=== PATIENT | male | born 1950 | race Caucasian/White ===

== ENCOUNTER 2016-11-30 11:40 | Inpatient (IN) | payer OTHER ==
[~2016-11-30] VITALS: Ht 172.7 cm; Wt 68.5 kg
[2016-11-30] MEDS ORDERED: ONDANSETRON 4 MG INJ IV STA (13:40)
[2016-11-30] MEDS ORDERED: metroNIDAZOLE 500 MG/NS (PMX) 100 ML IVPB STA (13:40)
[2016-11-30] MEDS ORDERED: HYDROmorphONE 1 MG/ML SYG IV STA (13:40)
[2016-11-30] MEDS ORDERED: PIPER-TAZO 3.375 GM IV (PMX) 100 ML IVPB STA (13:40)
[2016-11-30] MEDS ORDERED: SOD CHLORIDE 0.9% 1,000 ML IV STA (13:40)
[2016-11-30] MEDS ORDERED: DUTA0.5C PO ×2 (13:51→17:57)
[2016-11-30] MEDS ORDERED: OMEP20CA16 PO (13:51)
[2016-11-30] MEDS ORDERED: TAMS-14 PO (13:51)
--- NOTE | 2016-11-30 14:02 | ERA ---
ER Documentation Chief Complaint Date/Time DATE: 11/30/16 TIME: 13:03 Chief Complaint ABD PAIN WITH NAUSEA HPI 66-year-old male presents to the emergency department on referral from his GI doctor. Patient was just recently diagnosed with diverticulitis and microscopic perforation. He completed a course of IV antibiotics including Cipro and Flagyl. He followed up today with his ring facer with a planned colonoscopy. However, upon presenting to the GI doctor, he began complaining that he began having severe abdominal pain after starting the prep last night. Examination in the GI doctor's office indicated possible peritoneal signs and he was referred here to the emergency department. Upon arrival, patient is complaining of a diffuse, nonspecific abdominal pain that he rates as an 8/10. He denies fevers chills. He has had nausea but no vomiting. He denies any melena or hematemesis. ROS All systems reviewed and are negative except as per history of present illness. Medications Home Meds Reported Medications Omeprazole* (Omeprazole*) 20 Mg Capsule.dr, 20 MG PO DAILY, #30 CAP 11/30/16 Dutasteride* (Avodart*) 0.5 Mg Capsule, 0.5 MG PO DAILY, CAP 11/30/16 Tamsulosin Hcl* (Flomax*) 0.4 Mg Cap.er.24h, 0.4 MG PO DAILY, CAP 11/30/16 Allergies Allergies: Coded Allergies: No Known Allergy (Unverified , 11/30/16) FmHx Noncontributory for chief complaint Physical Exam Vitals Vital Signs Date Time Temp Pulse Resp B/P Pulse Ox O2 Delivery O2 Flow Rate FiO2 11/30/16 11:44 98.1 74 16 161/78 98 Physical Exam GENERAL: The patient is well developed and appropriate for usual state of health in no apparent distress HEENT: Pupils equal, round, and reactive to light. EOMI. There is no scleral icterus. NECK: C-spine is soft and supple, there is no meningismus. There is no cervical lymphadenopathy. LUNGS: Clear to auscultation bilaterally. There are no rales, wheezes or rhonchi. HEART: Regular rate and rhythm, no murmurs, clicks, rubs or gallops. ABDOMEN: Soft, nondistended. Hypoactive bowel sounds. Patient is diffuse tenderness throughout the abdomen with no rebound or guarding. EXTREMITIES: There is no peripheral cyanosis or edema. No focal swelling or erythema. NEURO: The patient moves all four extremities with 5/5 strength. Cranial nerves II - XII are intact. Normal gait. Alert and oriented SKIN: There is no apparent rash or petechiae. HEME/LYMPHATIC: There is no evidence of excessive bruising or lymphedema. PSYCHIATRIC: The patient does not appear anxious or depressed. Result Diagram: 11/30/16 1355 11/30/16 1355 Results 24 hrs Laboratory Tests Test 11/30/16 13:55 Activated Partial Thromboplast Time 31.6Sec Alanine Aminotransferase (ALT/SGPT) Pending Albumin 4.3g/dl Albumin/Globulin Ratio Pending Alkaline Phosphatase Pending Anion Gap Pending Aspartate Amino Transf (AST/SGOT) Pending Basophils # 0.110^3/ul Basophils % 0.6% Blood Morphology Comment Blood Urea Nitrogen Pending Calcium Level Pending Carbon Dioxide Level Pending Chloride Level 103mmol/L Creatinine Pending Direct Bilirubin Pending Eosinophils # 0.110^3/ul Eosinophils % 0.7% Globulin Pending Glucose Level Pending Hematocrit 41.3% Hemoglobin 13.1g/dl INR International Normalized Ratio 0.98 Indirect Bilirubin Pending Lipase Pending Lymphocytes # 2.110^3/ul Lymphocytes % 20.4% Mean Corpuscular Hemoglobin 21.9pg Mean Corpuscular Hemoglobin Concent 31.8g/dl Mean Corpuscular Volume 68.9fl Mean Platelet Volume 8.6fl Monocytes # 0.710^3/ul Monocytes % 7.2% Neutrophils # 7.210^3/ul Neutrophils % 71.1% Nucleated Red Blood Cells # 0.010^3/ul Nucleated Red Blood Cells % 0.0/100WBC Platelet Count 26346^3/UL Potassium Level 4.1mmol/L Prothrombin Time 13.0Sec Prothrombin Time Ratio 1.0 Red Blood Count 6.0010^6/ul Red Cell Distribution Width 16.8% Sodium Level 144mmol/L Total Bilirubin Pending Total Protein Pending White Blood Count 10.210^3/ul Current Medications Medications (Trade) Dose Ordered Sig/Himanshu Route PRN Reason Start Time Stop Time Status Last Admin Dose Admin Sodium Chloride (NS) 1,000 ml @ 1,000 mls/hr Q1H STAT IV 11/30/16 13:40 11/30/16 14:39 11/30/16 14:12 Hydromorphone HCl (Dilaudid) 1 mg ONCE STAT IV 11/30/16 13:40 11/30/16 13:41 DC 11/30/16 14:11 Ondansetron HCl 4 mg 4 mg ONCE STAT IV 11/30/16 13:40 11/30/16 13:41 DC 11/30/16 14:11 Metronidazole 100 ml @ 100 mls/hr ONCE STAT IVPB 11/30/16 13:40 11/30/16 14:39 11/30/16 14:11 Piperacillin Sod/ Tazobactam Sod (Zosyn 3.375gm/ 100 ml (Pmx)) 100 ml @ 200 mls/hr ONCE STAT IVPB 11/30/16 13:40 11/30/16 14:09 DC 11/30/16 14:11 Procedures/MDM Patient was taken to a room, seen and evaluated. Comfort measures were initiated. Diagnostic tests were ordered and reviewed. 3 LEAD RHYTHM STRIP: [Normal sinus rhythm without ectopy] 12 lead EKG interpreted by myself: Rate/rhythm: [Normal sinus rhythm] [place]/intervals: [Normal] Ischemia: [Nonspecific ST and T-wave changes with no ST elevation] Impression:[Nonspecific EKG] RADIOLOGY: Chest x-ray reviewed. CT scan of the abdomen and pelvis with IV contrast pending CONSULTATION: Dr. Dhaliwal was notified for admission. Dr. Posey was notified in surgical consultation. Dr. Horton was notified in GI consultation. MEDICAL DECISION MAKIN-year-old male presents the emergency department with abdominal pain in the setting of a outpatient treated diverticulitis with perforation. Given his history and his clinical examination at this time, I am concerned that he may be peritoneal from a worsening perforation of the diverticuli. Patient will undergo diagnostic workup including lab tests and CT imaging for further diagnostic accuracy. As per my conversations with his primary care doctor, he will be admitted to the hospital for IV fluids, pain control and monitoring with likely suggestive GI and surgical consultation. Departure Diagnosis: Primary Impression: Abdominal pain MASON PULIDOSON Nov 30, 2016 14:02
[2016-11-30 14:06] LABS: BASOPHIL # 0.1 10^3/ul (0.0-0.1); BASOPHILS % 0.6 % (0.0-2.0); EOSINOPHILS # 0.1 10^3/ul (0.0-0.5); EOSINOPHILS % 0.7 % (0.0-7.0); HEMATOCRIT 41.3 % (42.0-52.0); HEMOGLOBIN 13.1 g/dl (14.0-18.0); LYMPHOCYTES # 2.1 10^3/ul (0.8-2.9); LYMPHOCYTES % 20.4 % (15.0-51.0); MEAN CORPUSCULAR HEMOGLOBIN 21.9 pg (29.0-33.0); MEAN CORPUSCULAR HGB CONC 31.8 g/dl (32.0-37.0); MEAN CORPUSCULAR VOLUME 68.9 fl (82.0-101.0); MEAN PLATELET VOLUME 8.6 fl (7.4-10.4); MONOCYTE # 0.7 10^3/ul (0.3-0.9); MONOCYTES % 7.2 % (0.0-11.0); NEUTROPHIL # 7.2 10^3/ul (1.6-7.5); NEUTROPHILS % 71.1 % (39.0-77.0); PLATELET COUNT 263 10^3/UL (140-440); RED CELL DISTRIBUTION WIDTH 16.8 % (11.5-14.5); UNCORRECTED WBC 10.2 10^3/ul (4.8-10.8); WHITE BLOOD COUNT 10.2 10^3/ul (4.8-10.8)
[2016-11-30 14:11] LABS: INR 0.98
[2016-11-30 14:12] LABS: PARTIAL THROMBOPLASTIN TIME 31.6 Sec (25.0-35.0)
--- NOTE | 2016-11-30 14:14 | RADRPT ---
PROCEDURE: Chest Radiograph. CLINICAL INDICATION: Preop TECHNIQUE: Single frontal chest radiograph. COMPARISON: None available FINDINGS: The heart is magnified. The cardiomediastinal silhouette is within normal limits. No infiltrate o r effusion is seen. The bones are intact. IMPRESSION: 1. No evidence of acute cardiopulmonary disease. RPTAT: AA .Paul Scherer MD, MD Date Time Electronically viewed and signed by .Paul Scherer MD, on 11/30/2016 14:14 .B/
[2016-11-30 14:15] LABS: ALBUMIN 4.3 g/dl (3.3-4.9); POTASSIUM 4.1 mmol/L (3.5-5.1)
[2016-11-30 14:16] LABS: CONDITION 1; LH ANALYZER COMMENTS 1
[2016-11-30 14:17] LABS: BILIRUBIN,INDIRECT 0.5 mg/dl (0-1.1); BILIRUBIN,TOTAL 0.5 mg/dl (0.2-1.3); CREATININE 0.72 mg/dl (0.61-1.24)
[2016-11-30 14:18] LABS: ALBUMIN/GLOBULIN RATIO 1.34; CALCIUM 9.8 mg/dl (8.4-10.2); TOTAL PROTEIN 7.5 g/dl (6.1-8.1)
[2016-11-30 14:23] LABS: ADD UMIC YES; URINE BILIRUBIN (Dip) NEGATIVE (NEGATIVE); URINE BLOOD (Dip) TRACE (NEGATIVE); URINE COLOR YELLOW (YELLOW); URINE GLUCOSE (Dip) NEGATIVE (NEGATIVE); URINE KETONES (Dip) NEGATIVE (NEGATIVE); URINE LEUKOCYTE ESTERASE (Dip) NEGATIVE (NEGATIVE); URINE NITRITE (Dip) NEGATIVE (NEGATIVE); URINE TOTAL PROTEIN (Dip) TRACE (NEGATIVE); URINE UROBILINOGEN (Dip) 0.2 E.U./dL (0.1-1.0)
[2016-11-30] MEDS ORDERED: IOHEXOL 300MG/ML 150 ML BTL ONE (14:52)
[2016-11-30] MEDS ORDERED: SOD CHLORIDE 0.9% 100 ML ONE (14:52)
[2016-11-30 14:54] LABS: BACTERIA,URINE FEW; MUCUS,URINE MODERATE; URINE RBCS 0-2 /HPF (0)
--- NOTE | 2016-11-30 16:07 | RADRPT ---
PROCEDURE: CT Abdomen with and pelvis contrast. CLINICAL INDICATION: Abdominal Pain TECHNIQUE: CT scan of the abdomen and pelvis with contrast was performed on a multidetector high-r esolution CT scan. The patient was scanned following the uncomplicated intravenous administration 1 00 cc of Omnipaque 300. Coronal and sagittal reformatted images were obtained from the axial source images. Images were reviewed on a high-resolution PACS workstation. The total exam CTDI 9.43 mGy an d the total exam DLP 556.43 mGy-cm. One or more of the following dose reduction techniques were util ized: Automated exposure control, adjustment of the mA and/or kV according to patient size, use of iterative reconstruction technique. COMPARISON: None. FINDINGS: CT abdomen: The lung bases demonstrate bibasilar linear scarring and dependent atelectasis but are otherwise rik ar. The heart size is normal, without pericardial thickening or effusion. Atherosclerotic coronary artery calcifications. The liver is normal in size and density without focal mass or intrahepatic bi liary dilatation. The spleen is normal in size and homogeneous in density. The stomach is partiall y collapsed, but is grossly unremarkable. The pancreas as visualized is normal. The gallbladder and biliary tree are unremarkable and there is no evidence for biliary dilatation. The adrenal glands are symmetric and normal. Nonobstructing 2-3 mm mid pole and 3 nonobstructing low er pole right nephrolithiasis largest measuring 6 x 3 mm in size. Punctate midpole left nonobstruct ing calculus. 2.4 x 2 cm exophytic right lower pole and simple renal cortical cyst with adjacent 10 mm exophytic r ight renal cortical cyst with focal cortical scarring. 1.5 ml by 1.3 cm simple left lower lobe simp le cortical cyst. No obstructive uropathy. Prominent retroperitoneal lymph nodes. The aortocaval region below the renal arteries measuring less than 1 cm in short axis dimension likely reactive in nature. The aorta is of normal caliber. Aortic vascular calcifications are present. There is no retroperit radford lymphadenopathy. The evangelista hepatis region is clear. The bowel and mesentery, as visualized, are equally unremarkable. CT pelvis: Borderline prominent appendix without surrounding inflammatory change. No evidence of appendicolith . Circumferential mural thickening with extensive diverticulosis and surrounding pericolonic fat stran ding with trace fluid involving the distal descending colon and proximal sigmoid colon compatible wi th acute diverticulitis.. There is no large fluid collection to suggest abscess, however, there is a small 10 x 14 mm fluid co llection which may be within a diverticulum along the lateral wall of sigmoid colon most compatible with the contain a microperforation. No evidence of free air. Bilateral fat containing inguinal herniae. The surrounding osseous structures are remarkable for degenerative spondylosis of the spine. No ost eolytic or osteoblastic lesion is detected. IMPRESSION: 1. Acute distal descending and sigmoid diverticulitis with 10 x 14 mm lateral wall fluid collection compatible with a contained microperforation. No other evidence of free air, abscess, or bowel obst ruction. 2. Bilateral nonobstructive nephrolithiasis and simple renal cortical cysts. RPTAT:AAJJ Physician Asuncion Date Time Electronically viewed and signed by Physician Asuncion on 11/30/2016 16:07 DYLAN/
[2016-11-30 16:30] VITALS: BP 155/85; PULSE 68; RESP 16
[2016-11-30] MEDS ORDERED: ONDANSETRON 4 MG INJ IV PRN (17:00)
[2016-11-30] MEDS ORDERED: ACETAMINOPHEN 650 MG SUPP PR PRN (17:00)
[2016-11-30] MEDS ORDERED: NACL 0.9% 3 ML SYG IV SCH (17:00)
[2016-11-30] MEDS: SOD CHLORIDE 0.9% 1,000 ML IV SCH (17:03)
[2016-11-30] MEDS: HYDROmorphONE 1 MG/ML SYG IV PRN ×2 (17:04→21:30)
[2016-11-30 17:26] VITALS: Ht 172.7 cm; Wt 68.5 kg
--- NOTE | 2016-11-30 17:35 | HP ---
DATE OF ADMISSION: 11/30/2016 REASON FOR ADMISSION: Acute diverticulitis, recurrent, with possible microperforation. HISTORY OF PRESENT ILLNESS: The patient is a 66-year-old male with history of BPH, hypert ension, dyslipidemia, recently diagnosed with diverticulitis back in October, treated conservativel y with oral medications. He was planned to undergo colonoscopy today by Dr. Samayoa, but the patie nt had the special prep prior to procedure and while undergoing the prep, he was drinking the GoLYT TAN. He has been experiencing severe excruciating abdominal pain. It was decided to defer procedur e and admit him to the hospital for acute diverticulitis. In the ER, he was evaluated extensively. Chest x-ray revealed no evidence of acute cardiopulmonary disease. CT scan of abdomen and pelvis w as performed which showed acute distal descending and sigmoid diverticulitis with 10 x 14 mm lateral wall fluid collection compatible with contained microperforation, no other evidence of free air, ab scess or bowel obstruction. There is bilateral nonobstructive nephrolithiasis ____ cysts. The pinky ent received in the ER IV fluids, antibiotics with Zosyn and Flagyl and he was admitted to the [facility]/surgical floor. I asked the ER physician to call Dr. Jimi Posey, the ophthalmic surgical assistant. The patient is admitted. Otherwise he denies any chest pain, shortness of breath. Denies any fever or chills. Does report abdominal pain, severe in nature, for the past day. The patient denies any bleeding. Denies any weakness or numbness. Patient is admitted for further care. PAST MEDICAL HISTORY: BPH, hypertension, dyslipidemia, nephrolithiasis, nicotine dependence. ALLERGIES: NO KNOWN DRUG ALLERGIES. SOCIAL HISTORY: The patient smokes 1 cigarette a day. In the past, he smoked half a pack a day for most of his life. Alcohol socially. IV drug abuse, denies. SURGICAL HISTORY: Includes kidney stone resection, likely lithotripsy. FAMILY HISTORY: Mother alive, unknown medical problems. Father from a CVA in 1966. Patient i s x2. 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 REVIEW OF SYSTEMS: Per HPI. The patient recently was treated also for H. pylori and underwent a CA T scan on 11/06/2016 which did show basically the same findings as described by the patient's . PHYSICAL EXAMINATION: VITAL SIGNS: Temperature 98.1, pulse 74, respirations 16, blood pressure is elevated 161/78, satura tion is 98% on room air. GENERAL: No acute distress. HEENT: Normocephalic, atraumatic. The patient is pale. CARDIOVASCULAR: Positive S1 and S2, positive systolic ejection murmur heard throughout. LUNGS: Clear. ABDOMEN: Soft, positive midepigastric pain. Positive left upper quadrant pain. Positive left mid abdominal pain. Positive left lower quadrant pain. Positive mid abdominal pain and lower abdominal pain. EXTREMITIES: No clubbing, cyanosis, or edema. LABORATORY DATA: White count is 10.2, hemoglobin 13.1, hematocrit 41, MCV is low at 69 suggestive o f leukocytic anemia, platelet count of 263, neutrophils 71%, lymphocytes 20%. Chemistry: Sodium is 144, potassium 4.1, chloride 103, bicarbonate 28, BUN is 19, creatinine 0.72, glucose of 88. LFTs are all normal. Lipase is 30. UA essentially negative. DIAGNOSTIC IMAGING: Chest x-ray shows ____ evidence of acute cardiopulmonary disease. CT scan of t he abdomen and pelvis as above. EKG showed normal sinus rhythm, possible left atrial enlargement, l eft axis deviation, septal infarct, age undetermined at 62 beats a minute. ASSESSMENT AND PLAN: 1. This is a very unfortunate 66-year-old male with history of hypertension, BPH, dyslipidemia, alberta otine dependency, who presents with recurrent episodes of diverticulitis, failed outpatient manageme nt. 2. Acute diverticulitis with evidence of microperforation. The patient will be placed on IV antibi otics with Zosyn. Pain control will be provided. Will consult both GI and ophthalmic surgical assistant for further recommendation. May consider interventional radiology and drainage versus surgical interven tion versus supportive care with current antibiotics. Monitor symptoms. 3. I will send stool for C. diff, stool for blood and stool for culture. The patient will be hydra elsa with IV fluids and kept comfortable. 4. Anemia. The patient with microcytic anemia. Check iron panel, B12, folic acid, reticulocyte co unt and send stool for occult blood and check CEA level. 5. Benign prostatic hypertrophy. Resume patient's Flomax pending urine output. 6. Hypertension. Observe. May need to restart patient's medications. Patient says he does not ta ke medication regularly. 7. Dyslipidemia. Check lipid panel. 8. The patient will be placed on Protonix for GI prophylaxis and Lovenox for DVT prophylaxis. We w ill follow closely. Case discussed with family at bedside. They are aware of the patient's plan of care and condition. We will follow. Dictated By: OMAR MATUTE/CROW Conf#: [id number] DID#: [id number]
[2016-11-30] MEDS: PIPER-TAZO 3.375 GM IV (PMX) 100 ML IVPB SCH (18:13)
--- NOTE | 2016-11-30 20:17 | CONS ---
DATE OF ADMISSION: 11/30/2016 DATE OF CONSULTATION: Dear Dr. Jane: Thank you for asking me to evaluate the patient who is a 66-year-old male with history of hypertensi on, BPH, dyslipidemia, had an attack of diverticulitis in October. He was successfully treated wit h oral antibiotic. However, the patient was given mag citrate prep in preparation for colonoscopy b y Dr. Max and this prep, as per the patient, produced excruciating pain. Because of the pain, his procedure was canceled and he was sent to the ER and had a CAT scan done which showed diverticul itis with microperforation and abscess. There was no free air. Abscess size was 1 to 1.9 cm. The patient denies of any chest pain, no fever, no chills, no GI bleeding. PAST MEDICAL HISTORY: BPH, hypertension, dyslipidemia, nephrolithiasis and nicotine dependency. ALLERGIES: NO KNOWN DRUGS. SOCIAL HISTORY: He smokes 1 cigarette a day. Socially drinks. No IV drug abuse. FAMILY HISTORY: Mother is alive. Father from CVA. REVIEW OF SYSTEMS: Otherwise negative. PHYSICAL EXAMINATION VITAL SIGNS: Stable. HEENT: Unremarkable. NECK: Supple, no thyromegaly, no lymphadenopathy. CARDIOVASCULAR: No murmur, gallop or click. LUNGS: Clear. ABDOMEN: Soft. Tenderness in the left lower quadrant. Bowel sounds good. No mass abdomen. EXTREMITIES: No edema. CENTRAL NERVOUS SYSTEM: Grossly within normal limits. IMAGING DATA: CAT scan of the abdomen and pelvis showed diverticulitis in the left side of the colo n with microperforation and abscess formation. IMPRESSION: 1. Acute diverticulitis with microperforation and small abscess formation. 2. Hypertension. 3. Benign prostatic hypertrophy. 4. Dyslipidemia. 5. History of nicotine addiction. PLAN: At this point, is to continue antibiotic, IV Cipro and Flagyl. Surgical consult, probably dr chance of abscess. Will monitor WBC count closely, p.r.n. pain management. Dictated By: IRWIN COE MD PJ/NTS Conf#: [id number] DID#: [id number] CC: OMAR JANE MD;*EndCC*
[2016-11-30 20:32] VITALS: BP 169/80; RESP 19
[2016-12-01] MEDS: PIPER-TAZO 3.375 GM IV (PMX) 100 ML IVPB SCH ×5 (00:11→23:18)
[2016-12-01] MEDS: SOD CHLORIDE 0.9% 1,000 ML IV SCH ×3 (05:25→17:07)
[2016-12-01] MEDS: PANTOPRAZOLE 40 MG INJ IV SCH (05:26)
[2016-12-01] MEDS: HYDROmorphONE 1 MG/ML SYG IV PRN ×4 (05:38→23:18)
[2016-12-01 06:07] LABS: BASOPHILS % 0.2 % (0.0-2.0); EOSINOPHILS # 0.1 10^3/ul (0.0-0.5); EOSINOPHILS % 1.5 % (0.0-7.0); HEMATOCRIT 36.3 % (42.0-52.0); HEMOGLOBIN 11.5 g/dl (14.0-18.0); LYMPHOCYTES # 1.5 10^3/ul (0.8-2.9); LYMPHOCYTES % 20.9 % (15.0-51.0); MEAN CORPUSCULAR HEMOGLOBIN 22.3 pg (29.0-33.0); MEAN CORPUSCULAR HGB CONC 31.6 g/dl (32.0-37.0); MEAN CORPUSCULAR VOLUME 70.5 fl (82.0-101.0); MEAN PLATELET VOLUME 8.6 fl (7.4-10.4); MONOCYTE # 0.6 10^3/ul (0.3-0.9); NEUTROPHIL # 5.1 10^3/ul (1.6-7.5); NEUTROPHILS % 69.4 % (39.0-77.0); PLATELET COUNT 238 10^3/UL (140-440); RED BLOOD COUNT 5.15 10^6/ul (4.70-6.10); UNCORRECTED WBC 7.4 10^3/ul (4.8-10.8); WHITE BLOOD COUNT 7.4 10^3/ul (4.8-10.8)
[2016-12-01 06:11] LABS: ALBUMIN 3.3 g/dl (3.3-4.9)
[2016-12-01 06:12] LABS: POTASSIUM 3.9 mmol/L (3.5-5.1)
[2016-12-01 06:14] LABS: ALBUMIN/GLOBULIN RATIO 1.1; BILIRUBIN,INDIRECT 0.6 mg/dl (0-1.1); BILIRUBIN,TOTAL 0.6 mg/dl (0.2-1.3); CREATININE 0.77 mg/dl (0.61-1.24); TOTAL PROTEIN 6.3 g/dl (6.1-8.1)
[2016-12-01 06:15] LABS: CALCIUM 8.5 mg/dl (8.4-10.2); MAGNESIUM 1.8 mg/dl (1.7-2.5); PHOSPHORUS 3.8 mg/dl (2.5-4.9)
[2016-12-01 06:16] LABS: IRON 75 ug/dl (35-150)
[2016-12-01 06:25] LABS: TOTAL IRON BINDING CAPACITY 287 ug/dl (241-421)
[2016-12-01 06:28] LABS: CONDITION 1; LH ANALYZER COMMENTS 1
[2016-12-01 06:46] LABS: THYROID STIMULATING HORMONE 0.666 MIU/L (0.465-4.680)
[2016-12-01 07:22] LABS: FOLATE 15.4 ng/ml (2.8-20.0)
[2016-12-01 07:28] LABS: RETICULOCYTE COUNT % 1.2 % (0.5-1.5)
[2016-12-01 08:00] VITALS: BP 156/73; RESP 18
[2016-12-01 08:19] LABS: CARCINOEMBRYONIC ANTIGEN 1.9 ng/ml (0.0-5.0)
[2016-12-01] MEDS: ENOXAPARIN 40 MG/0.4 ML SYG SC SCH (10:10)
--- NOTE | 2016-12-01 11:56 | CONS ---
DATE OF ADMISSION: 11/30/2016 DATE OF CONSULTATION: 11/30/2016 TYPE OF CONSULTATION: Surgical. REFERRING PHYSICIAN: Samson Dhaliwal MD CHIEF COMPLAINT: 1. Abdominal pain. 2. Diverticulitis with microperforation, recent, possible recurrent. 3. Anemia. 4. Hypertension. 5. Nicotine dependency. HISTORY OF PRESENT ILLNESS: Mr. Bela Baldwin is a 66-year-old male with multiple comorbidities who back at the end of October was diagnosed with microperforated diverticulitis on an outpatient CT sc an and was treated by oral antibiotics and was planning to have a followup for colonoscopy by Dr. Thien leavitt. After he had his GoLYTELY prep, he started having worsening pain in the lower abdomen, rosemary cially in the left side. He denies any nausea, vomiting. Denies any fevers or chills. Denies any chest pain or shortness of breath. Denies any visual or neurologic changes. Denies cough, seizure, dysuria, bloating, trauma or sick contacts. After he was seen by the GI doctor prior to the colono scopy, he was referred back to the hospital and colonoscopy was canceled. The patient has had blood work, which are within normal and a CT scan is obtained. An official read is pending, but CT image s preliminary identify diverticulitis with probable microperforation. Surgical consult is obtained for further evaluation and treatment. PAST MEDICAL HISTORY: 1. Benign prostatic hypertrophy. 2. Hypertension. 3. Dyslipidemia. 4. Nephrolithiasis. 5. Nicotine dependence. 6. Diverticulosis with acute diverticulitis and microperforation. 7. History of H. pylori. PAST SURGICAL HISTORY: Cystoscopy and ureteroscopy and stone extraction. MEDICATIONS: As per medical record. ALLERGIES: NONE. SOCIAL HISTORY: Smokes half a pack per day for many years. Alcohol, socially. Denies recreational drug use. . 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 FAMILY HISTORY: Father from CVA at 67. Mother alive. Previous H. pylori treatment. REVIEW OF SYSTEMS: A 12-point review of system negative unless addressed in HPI. PHYSICAL EXAMINATION: VITAL SIGNS: Temperature is 98.1, pulse 74, blood pressure 161/78, respirations 16, satting 98% on room air. GENERAL: No acute distress, comfortable, pleasant. HEENT: Pupils equal, reactive. No scleral icterus. Mucous membranes are moist. Extraocular muscl es are intact. NECK: No crepitus. No JVD. Trachea midline. HEART: S1, S2 present and regular. PULMONARY: Normal respiratory effort. No wheezing. ABDOMEN: Soft, tender in the lower abdomen, left more than right. No rebound or guarding, not rig id. Negative Martinez's. Not distended. EXTREMITIES: No edema. VASCULAR: Capillary refill is less than 2 seconds. NEUROLOGIC: Alert, oriented, moves all 4 extremities grossly. SKIN: No rashes. No jaundice. LABORATORY DATA: WBC is 10, H and H 13/41, platelets 263. Chemistries within normal. LFTs are nor mal. Lipase is 30. UA is negative. RADIOGRAPHIC: CT report pending, but my official read as above. ASSESSMENT AND PLAN: Mr. Bela Baldwin is a 66-year-old male with multiple comorbidities: 1. Abdominal pain, probably secondary to acute on subacute diverticulitis with contained microperfo ration. Based on the findings, I recommend patient to be admitted on IV antibiotics. I had a long discussion with patient and in terms of plan. My recommendation is to continue antibiotics and heal this acute/subacute infection and then bring him back for an elective resection to prevent fut ure perforations. They both fully understand and are in agreement with the plan. In the meantime, we will also keep n.p.o. and on IV fluids. 2. Anemia, microcytic. Workup per primary team including iron panel and vitamins including B12 and folic acid. The patient will eventually need a colonoscopy prior to any surgical intervention to i nvestigate the colon for any other pathologies. 3. Hypertension. Continue her nutrition and medication optimization. 4. Benign prostatic hypertrophy history. Continue medication/Flomax. 5. Dyslipidemia. Continue nutrition optimization. 6. History of nephrolithiasis. The patient is encouraged to optimize his hydration. Thank you very much for consulting me in this patient's care. Dictated By: BELA HERNANDEZ/CROW Conf#: [id number] DID#: [id number]
--- NOTE | 2016-12-01 12:01 | PN ---
Date/Time of Note Date/Time of Note DATE: 12/01/16 TIME: 11:53 Assessment/Plan Lines/Catheters IV Catheter Type (from [facility]): Peripheral IV Assessment/Plan Chief Complaint/Hosp Course 1. Acute/subacute microperforated sigmoid diverticulitis. CT without drainable collection. -IV antibiotics -IV fluids -NPO till bowel function -After long discussion with patient and family, decision is to treat with antibiotics and bring back patient for elective laparoscopic sigmoid colectomy in a few months after outpatient colonoscopy 2. Microcytic anemia -Check B12 & folate -Monitor -Will need outpatient upper and lower scope prior to surgical intervention 3. Hypertension -Nutrition and medication control 4. BPH -Flomax 5. Dyslipidemia -Nutrition and possible medication control 6. Nephrolithiasis and renal cysts -Encourage adequate fluid consumption -Outpatient renal follow-up 7. Retroperitoneal and periaortic lymphadenopathy probably secondary to inflammatory changes above. However need to rule out malignancy. -After acute infection episodes has been treated, patient will benefit from outpatient colonoscopy 8. Bilateral inguinal hernias, asymptomatic -Eventual surgical repair, as needed Thank you, Problems: Subjective 24 Hr Interval Summary No fevers or chills. No chest pain or shortness of breath. No visual or neurologic changes. No nausea or vomiting. Abdominal pain persists. No dysuria. No joint swelling. No rashes. Min flatus. No bm. No drainable collection on CT. Exam/Review of Systems Vital Signs Vitals Vital Signs Date Time Temp Pulse Resp B/P Pulse Ox O2 Delivery O2 Flow Rate FiO2 12/01/16 08:00 98.4 70 18 156/73 92 11/30/16 16:30 Room Air Intake and Output 11/30/16 11/30/16 12/01/16 15:00 23:00 07:00 Intake Total 100 ml 1000 ml Output Total 300 ml Balance 100 ml 700 ml Exam Constitutional: alert, oriented, No distress Psych: nl mood/affect, No anxiety, No confusion Head: atraumatic, normocephalic Eyes: EOMI, PERRL, nl conjunctiva, No icteric ENMT: mucosa pink and moist, nl external ears & nose Neck: non-tender, No jvd Respiratory: normal air movement, No congested cough, No labored breathing Cardiovascular: regular rate and rhythm, No edema Gastrointestinal: soft, tender (lower abdomen. Less than yesterday), No distended, No rebound or guarding Musculoskeletal: nl extremities to inspection, nl gait and stance, No joint tenderness Extremities: normal pulses, No calf tenderness, No cyanosis, No edema Neurological: nl mental status, nl speech, nl strength Skin: nl turgor, No diaphoresis, No rash or lesions Lymph: nl lymph nodes Results Free Text/Dictation CT: The lung bases demonstrate bibasilar linear scarring and dependent atelectasis but are otherwise clear. The heart size is normal, without pericardial thickening or effusion. Atherosclerotic coronary artery calcifications. The liver is normal in size and density without focal mass or intrahepatic biliary dilatation. The spleen is normal in size and homogeneous in density. The stomach is partially collapsed, but is grossly unremarkable. The pancreas as visualized is normal. The gallbladder and biliary tree are unremarkable and there is no evidence for biliary dilatation. The adrenal glands are symmetric and normal. Nonobstructing 2-3 mm mid pole and 3 nonobstructing lower pole right nephrolithiasis largest measuring 6 x 3 mm in size. Punctate midpole left nonobstructing calculus. 2.4 x 2 cm exophytic right lower pole and simple renal cortical cyst with adjacent 10 mm exophytic right renal cortical cyst with focal cortical scarring. 1.5 ml by 1.3 cm simple left lower lobe simple cortical cyst. No obstructive uropathy. Prominent retroperitoneal lymph nodes. The aortocaval region below the renal arteries measuring less than 1 cm in short axis dimension likely reactive in nature. The aorta is of normal caliber. Aortic vascular calcifications are present. There is no retroperitoneal lymphadenopathy. The evangelista hepatis region is clear. The bowel and mesentery, as visualized, are equally unremarkable. CT pelvis: Borderline prominent appendix without surrounding inflammatory change. No evidence of appendicolith. Circumferential mural thickening with extensive diverticulosis and surrounding pericolonic fat stranding with trace fluid involving the distal descending colon and proximal sigmoid colon compatible with acute diverticulitis.. There is no large fluid collection to suggest abscess, however, there is a small 10 x 14 mm fluid collection which may be within a diverticulum along the lateral wall of sigmoid colon most compatible with the contain a microperforation. No evidence of free air. Bilateral fat containing inguinal herniae. The surrounding osseous structures are remarkable for degenerative spondylosis of the spine. No osteolytic or osteoblastic lesion is detected. IMPRESSION: 1. Acute distal descending and sigmoid diverticulitis with 10 x 14 mm lateral wall fluid collection compatible with a contained microperforation. No other evidence of free air, abscess, or bowel obstruction. 2. Bilateral nonobstructive nephrolithiasis and simple renal cortical cysts. Result Diagram: 12/01/16 0500 12/01/16 0500 BELA SHINE MD Dec 01, 2016 12:01
--- NOTE | 2016-12-01 18:30 | CONS ---
Date/Time of Note Date/Time of Note DATE: 12/01/16 TIME: 18:28 Assessment/Plan Assessment/Plan Additional Assessment/Plan IMPRESSION: 1. Acute diverticulitis with microperforation and small abscess formation. 2. Hypertension. 3. Benign prostatic hypertrophy. 4. Dyslipidemia. 5. History of nicotine addiction. Plan continue antibiotics NPO discussed with Consultation Date/Type/Reason Admit Date/Time Nov 30, 2016 at 14:18 Initial Consult Date 24 HR Interval Summary Free Text/Dictation abdominal pain hungry Exam/Review of Systems Vital Signs Vitals Vital Signs Date Time Temp Pulse Resp B/P Pulse Ox O2 Delivery O2 Flow Rate FiO2 12/01/16 08:00 98.4 70 18 156/73 92 11/30/16 16:30 Room Air Intake and Output 11/30/16 11/30/16 12/01/16 15:00 23:00 07:00 Intake Total 100 ml 1000 ml Output Total 300 ml Balance 100 ml 700 ml Exam Constitutional: alert, oriented, well developed Psych: nl mood/affect, no complaints Head: atraumatic, normocephalic Eyes: EOMI, PERRL, nl conjunctiva, nl lids, nl sclera ENMT: nl external ears & nose, nl lips & teeth, nl nasal mucosa & septum Neck: non-tender, supple Respiratory: clear to auscultation, normal air movement Cardiovascular: nl pulses, regular rate and rhythm Gastrointestinal: nl liver, spleen, non-tender, soft Musculoskeletal: nl extremities to inspection, nl gait and stance Extremities: normal pulses Neurological: BRANCH LEAD II-XII intact, nl mental status, nl speech, nl strength Skin: nl turgor, No rash or lesions Lymph: nl lymph nodes Results Result Diagram: 12/01/16 0500 12/01/16 0500 Results 24 hrs Laboratory Tests Test 12/01/16 05:00 Absolute Reticulocyte Count 0.061 Alanine Aminotransferase (ALT/SGPT) 31 Albumin 3.3 # Albumin/Globulin Ratio 1.10 Alkaline Phosphatase 78 Anion Gap 17 H Aspartate Amino Transf (AST/SGOT) 28 Basophils # 0.0 Basophils % 0.2 Blood Morphology Comment Blood Urea Nitrogen 15 Calcium Level 8.5 Carbon Dioxide Level 23 Carcinoembryonic Antigen 1.9 Chloride Level 106 Cholesterol Level 193 Cholesterol/HDL Ratio 6.0 Creatinine 0.77 Direct Bilirubin 0.00 Eosinophils # 0.1 Eosinophils % 1.5 Folate 15.4 Globulin 3.00 Glucose Level 61 #L HDL Cholesterol 32 Hematocrit 36.3 L Hemoglobin 11.5 L Hemoglobin A1c 5.6 Indirect Bilirubin 0.6 Iron Level 75 LDL Cholesterol, Calculated 136 Lymphocytes # 1.5 Lymphocytes % 20.9 Magnesium Level 1.8 Mean Corpuscular Hemoglobin 22.3 L Mean Corpuscular Hemoglobin Concent 31.6 L Mean Corpuscular Volume 70.5 L Mean Platelet Volume 8.6 Monocytes # 0.6 Monocytes % 8.0 Neutrophils # 5.1 Neutrophils % 69.4 Nucleated Red Blood Cells # 0.0 Nucleated Red Blood Cells % 0.0 Percent Iron Saturation 26 Percent Reticulocyte Count 1.2 Phosphorus Level 3.8 Platelet Count 238 Potassium Level 3.9 Red Blood Count 5.15 Red Cell Distribution Width 17.0 H Sodium Level 142 Thyroid Stimulating Hormone (TSH) 0.666 Total Bilirubin 0.6 Total Iron Binding Capacity 287 Total Protein 6.3 # Triglycerides Level 126 Vitamin B12 Level 404 White Blood Count 7.4 # Medications Medications Current Medications Sodium Chloride (NS) 1,000 ml @ 90 mls/hr [id number] IV Last administered on 17:07; Admin Dose 90 MLS/HR; Start 11/30/16 at 16:42 Ondansetron HCl (Zofran Inj) 4 mg Q6H PRN IV NAUSEA AND/OR VOMITING; Start at 17:00 Acetaminophen (Tylenol Supp) 650 mg Q6H PRN [place] PAIN LEVEL 1-3 OR FEVER; Start 11/30/16 at 17:00 Hydromorphone HCl (Dilaudid) 0.5 mg Q4H PRN IV SEVERE PAIN LEVEL 7-10 Last administered on 12/01/16 17:15; Admin Dose 0.5 MG; Start 11/30/16 at 17:00 Pantoprazole (Protonix Iv) 40 mg DAILY@06 IV Last administered on 12/01/16 05: 26; Admin Dose 40 MG; Start 12/01/16 at 06:00 Enoxaparin Sodium 40 mg 40 mg DAILY SC Last administered on 12/01/16 10:10; Admin Dose 40 MG; Start 12/01/16 at 09:00 Piperacillin Sod/ Tazobactam Sod (Zosyn 3.375gm/ 100 ml (Pmx)) 100 ml @ 200 mls /hr Q6 IVPB Last administered on 12/01/16t 17:07; Admin Dose 200 MLS/HR; Start 11/30/16 at 18:00 IRWIN COE MD Dec 01, 2016 18:30
[2016-12-01 19:25] VITALS: BP 168/83; RESP 16
--- NOTE | 2016-12-01 19:51 | PN ---
DATE: 12/01/2016 SUBJECTIVE: Case discussed in detail with Dr. Horton and Dr. Jimi Posey regarding plan of care. Plan for now is to continue the patient's IV antibiotics, bowel rest, and to continue IV fluids a nd, then at a later time, likely to proceed with outpatient colonoscopy and then a laparoscopic sigm oid colectomy in a few months. Family had many questions that I answered them in my best ability. They were concerned that the colonoscopy prep has caused the diverticulitis exacerbation. PHYSICAL EXAMINATION: VITAL SIGNS: Temperature 98.4, pulse 70, respirations 18, blood pressure 156/72, saturation 92% to 97% on room air. GENERAL: No acute distress. HEENT: Normocephalic, atraumatic. CARDIOVASCULAR: S1, S2, regular rate. LUNGS: Clear. ABDOMEN: Soft. Positive tender to palpation in the left mid abdomen, left lower quadrant, and mid abdomen area. LABORATORY DATA: White count is 7.4, hemoglobin 11.5, hematocrit 36, platelets 238 with normal diff erential. Chemistry: Sodium is 142, potassium 3.9, chloride 106, bicarbonate 23, BUN 16, creatinin e 0.77, glucose 61. Hemoglobin A1c 5.6. Iron 75, TIBC 287, percent saturation 26%. AST 28, ALT 31 , alkaline phosphatase 78. Albumin 3.3. Cholesterol 193, LDL 136, HDL 32. Lipase 30. CEA is 1.9. Vitamin B12 is 404. Folic acid 15.4. TSH is 0.6. Blood cultures were negative. ASSESSMENT AND PLAN: This is a 66-year-old male with history of hypertension, benign prostatic hype rtrophy, dyslipidemia, nicotine dependency who presented with recurrent episode of diverticulitis, f carlos outpatient management. He has been treated now for over a month, per family. 1. Acute diverticulitis. Continue IV antibiotics with Zosyn. I appreciate GI and surgical input. Diet to be advanced per team. Per discussion with Dr. Posey, no need for IR drainage, as the are a is close to the abdominal wall and it is not big. 2. Anemia. Likely hemodiluted. Observe. Anemia workup currently unremarkable. CEA is normal at 1.9. 3. Hypertension. Observe. May restart patient's meds if okay with surgical team. 4. Continue gastrointestinal prophylaxis and deep venous thrombosis prophylaxis. 5. Continue pain control. We will follow. Dictated By: OMAR MATUTE/CROW Conf#: [id number] DID#: [id number]
[2016-12-01 22:26] VITALS: BP 192/93
[2016-12-01] MEDS: hydrALAzine 20 MG INJ IV PRN (22:26)
[2016-12-01 23:30] VITALS: BP 166/80
[2016-12-02] VITALS (9 sets, daily range): BP systolic 148–202; BP diastolic 67–91; PULSE 71–91; RESP 16–18
[2016-12-02] MEDS: SOD CHLORIDE 0.9% 1,000 ML IV SCH ×2 (02:03→04:40)
[2016-12-02] MEDS: HYDROmorphONE 1 MG/ML SYG IV PRN ×5 (04:46→21:41)
[2016-12-02] MEDS: PIPER-TAZO 3.375 GM IV (PMX) 100 ML IVPB SCH ×3 (05:52→18:04)
[2016-12-02] MEDS: PANTOPRAZOLE 40 MG INJ IV SCH (05:53)
[2016-12-02] MEDS: hydrALAzine 20 MG INJ IV PRN (08:26)
[2016-12-02] MEDS ORDERED: GLUCOSE GEL 15 GRAM TUBE ONE (08:44)
[2016-12-02] MEDS ORDERED: hydrALAzine 20 MG INJ IV ONE (09:00)
[2016-12-02] MEDS: DEXTROSE 5%-0.45% NACL 1,000 ML IV SCH ×2 (09:04→21:42)
[2016-12-02] MEDS ORDERED: GLUCOSE GEL 15 GRAM TUBE PO SCH ×3 (09:30)
[2016-12-02] MEDS ORDERED: GLUCOSE GEL 24 GRAMS PO SCH (09:30)
[2016-12-02] MEDS: ENOXAPARIN 40 MG/0.4 ML SYG SC SCH (09:40)
[2016-12-02] MEDS ORDERED: HYDROmorphONE 1 MG/ML SYG IV PRN (12:00)
[2016-12-02 12:14] LABS: ALBUMIN 3.5 g/dl (3.3-4.9)
[2016-12-02 12:15] LABS: POTASSIUM 3.6 mmol/L (3.5-5.1)
[2016-12-02 12:16] LABS: BASOPHILS % 0.2 % (0.0-2.0); EOSINOPHILS % 0.3 % (0.0-7.0); HEMATOCRIT 37.6 % (42.0-52.0); LYMPHOCYTES # 0.9 10^3/ul (0.8-2.9); LYMPHOCYTES % 9.2 % (15.0-51.0); MEAN CORPUSCULAR HEMOGLOBIN 22.2 pg (29.0-33.0); MEAN CORPUSCULAR HGB CONC 31.8 g/dl (32.0-37.0); MEAN CORPUSCULAR VOLUME 69.7 fl (82.0-101.0); MEAN PLATELET VOLUME 8.5 fl (7.4-10.4); MONOCYTE # 0.6 10^3/ul (0.3-0.9); MONOCYTES % 5.9 % (0.0-11.0); NEUTROPHIL # 8.3 10^3/ul (1.6-7.5); NEUTROPHILS % 84.4 % (39.0-77.0); PLATELET COUNT 255 10^3/UL (140-440); RED BLOOD COUNT 5.39 10^6/ul (4.70-6.10); RED CELL DISTRIBUTION WIDTH 16.9 % (11.5-14.5); UNCORRECTED WBC 9.8 10^3/ul (4.8-10.8); WHITE BLOOD COUNT 9.8 10^3/ul (4.8-10.8)
[2016-12-02 12:17] LABS: BILIRUBIN,INDIRECT 0.4 mg/dl (0-1.1); BILIRUBIN,TOTAL 0.4 mg/dl (0.2-1.3); CREATININE 0.63 mg/dl (0.61-1.24)
[2016-12-02 12:18] LABS: ALBUMIN/GLOBULIN RATIO 1.12; CALCIUM 8.7 mg/dl (8.4-10.2); TOTAL PROTEIN 6.6 g/dl (6.1-8.1)
[2016-12-02 12:19] LABS: CONDITION 1; LH ANALYZER COMMENTS 1
[2016-12-02 12:28] LABS: TROPONIN-I 0.027 ng/ml (0.00-0.12)
[2016-12-02] MEDS ORDERED: NITROGLYCERIN 0.1 MG/HR PATCH TRANSDERM SCH (13:30)
--- NOTE | 2016-12-02 14:02 | RADRPT ---
Vent Rate: 78 bpm RR Interval: 0 msec OK Interval: 178 msec QRS Duration: 90 msec QT Interval: 430 msec QTC Interval: 490 msec P-R-T [place]: 47 - -11 - 44 degrees Normal sinus rhythm Prolonged QT Abnormal ECG Electronically Signed By: Tj Elena [id number]
[2016-12-02] MEDS: METOPROLOL 25 MG TAB PO SCH ×2 (14:14→20:37)
[2016-12-02] MEDS: NITROGLYCERIN 0.1 MG/HR PATCH TRANSDERM SCH (14:15)
--- NOTE | 2016-12-02 16:39 | PN ---
DATE: 12/02/2016 SUBJECTIVE: Patient is seen earlier today. He had hypertensive urgency and chest discomfort coming from the abdomen to the chest. He felt like tearing through his chest. I gave him an extra dose of Dilaudid. EKG and troponin were ordered. He also received hydralazine IV, overall with go od results. The patient is feeling okay now. I asked cardiology to see the patient in consultation . PHYSICAL EXAMINATION: VITAL SIGNS: Temperature 98.2, pulse 91, respiration is 18, blood pressure 156/71. GENERAL: The patient is in no acute distress, saturation was 98% on room air. HEENT: Normocephalic, atraumatic. CARDIOVASCULAR: S1 and S2, regular rate and rhythm. LUNGS: Clear. ABDOMEN: wax coating machine tender to palpation in the left lower quadrant and mid abdomen. EXTREMITIES: No clubbing, cyanosis, or edema. LABORATORY DATA: Today, white count 9.8, hemoglobin 12, hematocrit 38, platelet count 255, neutroph ils 85%, lymphocytes 9%. Chemistry: Sodium is 139, potassium 3.6, chloride 104, bicarbonate 21, BU N is 12, creatinine 0.63, glucose of 110. Lactic acid is 0.8. LFTs are normal. Stool occult blood was negative. UA was negative on admission. INR 0.98. MEDICATIONS: Include the followin. Dilaudid 1 mg IV q.3h. p.r.n. 2. D5 half normal at 80 mL an hour. The patient did have episodes of hypoglycemia as well today, s o I switched his fluids. 3. Hydralazine 5 mg IV q.4h. p.r.n. for systolic greater than 170. 4. Lovenox 40 mg subcutaneous daily. 5. Protonix 40 IV daily. 6. Zosyn 3.375 IV q.6h. 7. Zofran p.r.n. 8. Tylenol p.r.n. ASSESSMENT AND PLAN: This is a 66-year-old male with history of hypertension, benign prostatic hyp ertrophy, dyslipidemia, nicotine dependency who presented with recurrent episode of diverticulitis, failed outpatient management. 2. Acute diverticulitis remains on Zosyn, IV fluid hydration and pain medications. Follow up surge ry and GI recommendations. In the meantime, the plan for conservative management at a later time. The patient to undergo colonoscopy and partial colon resection surgery. 3. Anemia, stable. 4. Hypertension. We will start the patient on oral pills with beta blockers. Obtain serial tropon ins. This patient had episodes of somewhat concerning chest pain. Currently, doing well. The pinky ent remains on Lovenox for DVT prophylaxis. Continue hydralazine p.r.n. as well for systolic blood pressure greater than 170. 5. Benign prostatic hypertrophy, start the patient on Flomax. 6. Episodes of hypoglycemia. Patient now on D5 half normal saline. Follow up all stool studies. Overall currently remains stable. Case discussed with family. Dictated By: OMAR MATUTE/CROW Conf#: [id number] DID#: [id number]
[2016-12-02] MEDS: TAMSULOSIN (SR) 0.4 MG CAP PO SCH (20:37)
--- NOTE | 2016-12-02 20:59 | PN ---
Date/Time of Note Date/Time of Note DATE: 12/02/16 TIME: 20:56 Assessment/Plan Lines/Catheters IV Catheter Type (from [facility]): Peripheral IV Assessment/Plan Chief Complaint/Hosp Course 1. Acute/subacute microperforated sigmoid diverticulitis. CT without drainable collection. -IV antibiotics -IV fluids -NPO till bowel function -Recommend antibiotics with conservative tx if continues to work and then bring back patient for elective laparoscopic sigmoid colectomy in a few months after outpatient colonoscopy 2. Microcytic anemia -Check B12 & folate -Monitor -Will need outpatient upper and lower scope prior to surgical intervention 3. Hypertension -Nutrition and medication control 4. BPH -Flomax 5. Dyslipidemia -Nutrition and possible medication control 6. Nephrolithiasis and renal cysts -Encourage adequate fluid consumption -Outpatient renal follow-up 7. Retroperitoneal and periaortic lymphadenopathy probably secondary to inflammatory changes above. However need to rule out malignancy. -After acute infection episodes has been treated, patient will benefit from outpatient colonoscopy 8. Bilateral inguinal hernias, asymptomatic -Eventual surgical repair, as needed 9. Chest pain, ? etiology -w/u per cardiology and primary Thank you, Problems: Subjective 24 Hr Interval Summary No fevers or chills. Tearing chest pain this morning but thus far cardiac w/u negative. No shortness of breath. No visual or neurologic changes. No nausea or vomiting. Abdominal pain persists. No dysuria. No joint swelling. No rashes. Min flatus. No bm. Exam/Review of Systems Vital Signs Vitals Vital Signs Date Time Temp Pulse Resp B/P Pulse Ox O2 Delivery O2 Flow Rate FiO2 12/02/16 20:41 98.8 81 16 164/78 95 12/02/16 08:15 Room Air Intake and Output 12/01/16 12/01/16 12/02/16 15:00 23:00 07:00 Intake Total 100 ml 1000 ml 1255 ml Output Total 725 ml 850 ml Balance 100 ml 275 ml 405 ml Exam Free Text/Dictation Constitutional: alert, oriented, No distress Psych: nl mood/affect, No anxiety, No confusion Head: atraumatic, normocephalic Eyes: EOMI, PERRL, nl conjunctiva, No icteric ENMT: mucosa pink and moist, nl external ears & nose Neck: non-tender, No jvd Respiratory: normal air movement, No congested cough, No labored breathing Cardiovascular: regular rate and rhythm, No edema Gastrointestinal: soft, tender (lower abdomen. Less than yesterday), No distended, No rebound or guarding Musculoskeletal: nl extremities to inspection, nl gait and stance, No joint tenderness Extremities: normal pulses, No calf tenderness, No cyanosis, No edema Neurological: nl mental status, nl speech, nl strength Skin: nl turgor, No diaphoresis, No rash or lesions Lymph: nl lymph nodes Results Result Diagram: 12/02/16 1145 12/02/16 1145 BELA SHINE MD Dec 02, 2016 20:59
--- NOTE | 2016-12-02 21:57 | CONS ---
Date/Time of Note Date/Time of Note DATE: 12/02/16 TIME: 21:55 Assessment/Plan Assessment/Plan Additional Assessment/Plan IMPRESSION: 1. Acute diverticulitis with microperforation and small abscess formation. 2. Hypertension. 3. Benign prostatic hypertrophy. 4. Dyslipidemia. 5. History of nicotine addiction. 6.chest pain Plan continue antibiotics pain management Consultation Date/Type/Reason Admit Date/Time Nov 30, 2016 at 14:18 24 HR Interval Summary Free Text/Dictation abdominal pain better Exam/Review of Systems Vital Signs Vitals Vital Signs Date Time Temp Pulse Resp B/P Pulse Ox O2 Delivery O2 Flow Rate FiO2 12/02/16 20:41 98.8 81 16 164/78 95 12/02/16 08:15 Room Air Intake and Output 12/01/16 12/01/16 12/02/16 15:00 23:00 07:00 Intake Total 100 ml 1000 ml 1255 ml Output Total 725 ml 850 ml Balance 100 ml 275 ml 405 ml Exam Constitutional: alert, oriented, well developed Psych: nl mood/affect, no complaints Head: atraumatic, normocephalic Eyes: EOMI, PERRL, nl conjunctiva, nl lids, nl sclera ENMT: nl external ears & nose, nl lips & teeth, nl nasal mucosa & septum Neck: non-tender, supple Respiratory: clear to auscultation, normal air movement Cardiovascular: nl pulses, regular rate and rhythm Gastrointestinal: nl liver, spleen, non-tender, soft Musculoskeletal: nl extremities to inspection, nl gait and stance Extremities: normal pulses Neurological: RELOCATION COORDINATOR II-XII intact, nl mental status, nl speech, nl strength Skin: nl turgor, No rash or lesions Lymph: nl lymph nodes Results Result Diagram: 12/02/16 1145 12/02/16 1145 Results 24 hrs Laboratory Tests Test 12/02/16 00:54 12/02/16 08:37 12/02/16 08:38 12/02/16 09:11 Stool Occult Blood NEGATIVE Bedside Glucose 59 L 62 L 62 L Test 12/02/16 09:32 12/02/16 10:40 12/02/16 11:45 12/02/16 16:30 Bedside Glucose 81 103 Alanine Aminotransferase (ALT/SGPT) 29 Albumin 3.5 Albumin/Globulin Ratio 1.12 Alkaline Phosphatase 70 Anion Gap 18 H Aspartate Amino Transf (AST/SGOT) 30 Basophils # 0.0 Basophils % 0.2 Blood Morphology Comment Blood Urea Nitrogen 12 Calcium Level 8.7 Carbon Dioxide Level 21 Chloride Level 104 Creatinine 0.63 Direct Bilirubin 0.00 Eosinophils # 0.0 Eosinophils % 0.3 Globulin 3.10 Glucose Level 110 # Hematocrit 37.6 L Hemoglobin 12.0 L Indirect Bilirubin 0.4 Lactic Acid Level 0.8 Lymphocytes # 0.9 Lymphocytes % 9.2 L Mean Corpuscular Hemoglobin 22.2 L Mean Corpuscular Hemoglobin Concent 31.8 L Mean Corpuscular Volume 69.7 L Mean Platelet Volume 8.5 Monocytes # 0.6 Monocytes % 5.9 Neutrophils # 8.3 H Neutrophils % 84.4 H Nucleated Red Blood Cells # 0.0 Nucleated Red Blood Cells % 0.0 Platelet Count 255 Potassium Level 3.6 Red Blood Count 5.39 Red Cell Distribution Width 16.9 H Sodium Level 139 Total Bilirubin 0.4 Total Protein 6.6 Troponin I 0.027 0.064 White Blood Count 9.8 # Medications Medications Current Medications Ondansetron HCl (Zofran Inj) 4 mg Q6H PRN IV NAUSEA AND/OR VOMITING; Start at 17:00 Acetaminophen (Tylenol Supp) 650 mg Q6H PRN [place] PAIN LEVEL 1-3 OR FEVER; Start 11/30/16 at 17:00 Pantoprazole (Protonix Iv) 40 mg DAILY@06 IV Last administered on 12/02/16 05: 53; Admin Dose 40 MG; Start 12/01/16 at 06:00 Enoxaparin Sodium 40 mg 40 mg DAILY SC Last administered on 12/02/16 09:40; Admin Dose 40 MG; Start 12/01/16 at 09:00 Piperacillin Sod/ Tazobactam Sod (Zosyn 3.375gm/ 100 ml (Pmx)) 100 ml @ 200 mls /hr Q6 IVPB Last administered on 12/02/16 18:04; Admin Dose 200 MLS/HR; Start 11/30/16 at 18:00 Hydralazine HCl 5 mg 5 mg Q4H PRN IV ELEVATED BLOOD PRESSURE Last administered on 12/02/16 08:26; Admin Dose 5 MG; Start 12/01/16 at 22:00 Dextrose/Sodium Chloride (D5-1/2ns) 1,000 ml @ 80 mls/hr [id number] IV Last administered on 12/02/16 21:42; Admin Dose 80 MLS/HR; Start 12/02/16 at 09:00 Hydromorphone HCl (Dilaudid) 1 mg Q3 PRN IV PAIN Last administered on 21:41; Admin Dose 1 MG; Start 12/02/16 at 10:00 Metoprolol Tartrate (Lopressor) 25 mg BID PO Last administered on 12/02/16 20: 37; Admin Dose 25 MG; Start 12/02/16 at 13:30 Tamsulosin HCl (Flomax) 0.4 mg HS PO Last administered on 12/02/16 20:37; Admin Dose 0.4 MG; Start 12/02/16 at 21:00 Nitroglycerin (Nitroglycerin 0.1 Mg/Hr) 1 patch DAILY TRANSDERM Last administered on 12/02/16 14:15; Admin Dose 1 PATCH; Start 12/02/16 at 14:30 IRWIN COE MD Dec 02, 2016 21:56
[2016-12-03] MEDS: PIPER-TAZO 3.375 GM IV (PMX) 100 ML IVPB SCH ×5 (00:12→23:16)
[2016-12-03] MEDS: hydrALAzine 20 MG INJ IV PRN ×2 (03:27→15:20)
[2016-12-03] MEDS: HYDROmorphONE 1 MG/ML SYG IV PRN ×3 (03:51→20:45)
[2016-12-03] MEDS: PANTOPRAZOLE 40 MG INJ IV SCH (05:13)
[2016-12-03 06:17] LABS: MAGNESIUM 1.8 mg/dl (1.7-2.5)
[2016-12-03 06:20] LABS: POTASSIUM 3.3 mmol/L (3.5-5.1)
[2016-12-03 06:23] LABS: CREATININE 0.67 mg/dl (0.61-1.24)
[2016-12-03 06:24] LABS: CALCIUM 8.7 mg/dl (8.4-10.2)
[2016-12-03 06:26] LABS: EOSINOPHILS # 0.1 10^3/ul (0.0-0.5); EOSINOPHILS % 0.8 % (0.0-7.0); HEMOGLOBIN 10.8 g/dl (14.0-18.0); LYMPHOCYTES # 0.9 10^3/ul (0.8-2.9); LYMPHOCYTES % 12.5 % (15.0-51.0); MEAN CORPUSCULAR HEMOGLOBIN 22.3 pg (29.0-33.0); MEAN CORPUSCULAR HGB CONC 31.8 g/dl (32.0-37.0); MEAN CORPUSCULAR VOLUME 70.2 fl (82.0-101.0); MEAN PLATELET VOLUME 8.9 fl (7.4-10.4); MONOCYTE # 0.7 10^3/ul (0.3-0.9); MONOCYTES % 9.6 % (0.0-11.0); NEUTROPHIL # 5.6 10^3/ul (1.6-7.5); NEUTROPHILS % 77.1 % (39.0-77.0); PLATELET COUNT 229 10^3/UL (140-440); RED BLOOD COUNT 4.84 10^6/ul (4.70-6.10); RED CELL DISTRIBUTION WIDTH 16.2 % (11.5-14.5); TROPONIN-I 0.033 ng/ml (0.00-0.12); UNCORRECTED WBC 7.3 10^3/ul (4.8-10.8); WHITE BLOOD COUNT 7.3 10^3/ul (4.8-10.8)
[2016-12-03 06:50] LABS: CONDITION 1; LH ANALYZER COMMENTS 1
[2016-12-03] MEDS ORDERED: MAGNESIUM SULFATE 2 GM/50 ML 50 ML IVPB ONE (08:00)
[2016-12-03 08:22] VITALS: BP 143/75; RESP 20
[2016-12-03] MEDS ORDERED: POTASSIUM CHLORIDE 30 MEQ in SOD CHLORIDE 0.9% 150 ML IVPB ONE (09:00)
[2016-12-03] MEDS: METOPROLOL 50 MG TAB PO SCH ×2 (09:03→20:45)
[2016-12-03] MEDS: NITROGLYCERIN 0.1 MG/HR PATCH TRANSDERM SCH (09:03)
[2016-12-03] MEDS: DEXTROSE 5%-0.45% NACL 1,000 ML IV SCH ×2 (09:04→23:16)
[2016-12-03] MEDS: ENOXAPARIN 40 MG/0.4 ML SYG SC SCH (09:04)
--- NOTE | 2016-12-03 09:33 | CONS ---
DATE OF ADMISSION: 11/30/2016 DATE OF CONSULTATION: 12/03/2016 CARDIOLOGY CONSULTATION REFERRING PHYSICIAN: Samson Jane MD REASON FOR CONSULTATION: Chest pain. CHIEF COMPLAINT: Abdominal pain. HISTORY OF PRESENT ILLNESS: Thank you for this referral. History obtained from the patient, jah barillas with his , review of the chart. This is a 66-year-old gentleman who was admitted 3 days ag o with acute diverticulitis. The patient apparently has had diverticulitis, has been on antibiotic as an outpatient, has been doing well. Previously was to undergo outpatient colonoscopy, but appare ntly after the GoLYTELY was given he had severe abdominal pain and decided to admit him for treatmen t. While here, slowly his abdominal pain got better; however, last night he had episode of chest pa in, severe, anteriorly all over his body. It lasted about 5 to 10 minutes and resolved. According to the patient and his , his blood pressure was severely elevated at the time up to 202. His wi fe also stated that he also gets "anxious" as well. The pain has resolved and this morning he also had reports of sweating and chills and throat discomfort, abdominal discomfort, all at the same time which has resolved. Again, according to the family, the blood pressure has been elevated. Current ly, denies any chest pain or pressure. Said that he normally walks quite a bit and exercises with n o chest pain or pressure. PAST MEDICAL HISTORY: History of hypertension, dyslipidemia, nephrolithiasis, smoking. ALLERGIES: NO KNOWN DRUG ALLERGIES. SOCIAL HISTORY: The patient is smoking minimally now, has smoked more in the past. Drinks socially . Denies any drug abuse. FAMILY HISTORY: Patient's younger brother with coronary bypass graft. MEDICATIONS: As per medical reconciliation; however, he said he does not take any of his blood pres sure medication, only takes them as needed, and he has not needed them much outpatient. He has also been on antibiotics as an outpatient reportedly as well. REVIEW OF SYSTEMS: Otherwise negative except for above-mentioned. PHYSICAL EXAMINATION: VITAL SIGNS: Temperature 98.4, heart rate of 81, blood pressure 164/78, respiratory rate of 16, sat urating 95%. HEENT: Normocephalic, atraumatic. Pupils are equal. CARDIOVASCULAR: Regular rate and rhythm. PULMONARY: With no wheezes, no rales. GASTROINTESTINAL: Nontender, positive tenderness to palpation mostly on the left side. EXTREMITIES: No extremity edema. NEUROLOGIC: Awake, alert x3, nonfocal. PSYCHIATRIC: Appears to be calm and pleasant. LABORATORY DATA: WBC of 7.3, hemoglobin 10.8, platelets of 229, sodium 139, potassium 3.3, BUN of 9 , creatinine 0.67, glucose of 104, magnesium is 1.8. Troponin has been negative x3. EKG shows norm al sinus rhythm. Poor R-wave progression. ASSESSMENT AND PLAN: 1. Chest pain syndrome, rule acute coronary syndrome. 2. Diverticulitis. 3. Abdominal mass secondary to above. 4. Hypertension. 5. Dyslipidemia. RECOMMENDATIONS: The patient has been started on metoprolol. We will increase the dose to control the blood pressure better for now. Cardiac enzymes have been negative. The patient's pain appeared to be most likely related to his abdominal discomfort. For now, we will get an echocardiogram on h im, increase the beta jose, nitrite was started as well. Once the patient's GI status improves, will consider outpatient stress testing for him as well. Thank you for this referral. We will continue to follow along with you. Dictated By: NADIA BAKER MD AV/CROW Conf#: [id number] DID#: [id number] CC: SAMSON JANE MD;*End*
--- NOTE | 2016-12-03 15:36 | CONS ---
Date/Time of Note Date/Time of Note DATE: 12/03/16 TIME: 15:35 Assessment/Plan Assessment/Plan Additional Assessment/Plan Additional Assessment/Plan IMPRESSION: 1. Acute diverticulitis with microperforation and small abscess formation. 2. Hypertension. 3. Benign prostatic hypertrophy. 4. Dyslipidemia. 5. History of nicotine addiction. 6.chest pain Plan continue antibiotics pain management clear liquid diet repeat ct scan Consultation Date/Type/Reason Admit Date/Time Nov 30, 2016 at 14:18 24 HR Interval Summary Constitutional: improved Exam/Review of Systems Vital Signs Vitals Vital Signs Date Time Temp Pulse Resp B/P Pulse Ox O2 Delivery O2 Flow Rate FiO2 12/03/16 08:22 98.8 89 20 143/75 96 12/02/16 08:15 Room Air Intake and Output 12/02/16 12/02/16 12/03/16 15:00 23:00 07:00 Intake Total 280 ml 1060 ml 300 ml Output Total 900 ml 750 ml Balance 280 ml 160 ml -450 ml Exam Constitutional: alert, oriented, well developed Psych: nl mood/affect, no complaints Head: atraumatic, normocephalic Eyes: EOMI, PERRL, nl conjunctiva, nl lids, nl sclera ENMT: nl external ears & nose, nl lips & teeth, nl nasal mucosa & septum Neck: non-tender, supple Respiratory: clear to auscultation, normal air movement Cardiovascular: nl pulses, regular rate and rhythm Gastrointestinal: nl liver, spleen, non-tender, soft Musculoskeletal: nl extremities to inspection, nl gait and stance Extremities: normal pulses Neurological: OPERATING ENGINEER II-XII intact, nl mental status, nl speech, nl strength Skin: nl turgor, No rash or lesions Lymph: nl lymph nodes Results Result Diagram: 12/03/16 0510 12/03/16 0510 Results 24 hrs Laboratory Tests Test 12/02/16 16:30 12/03/16 05:10 Troponin I 0.064 0.033 Anion Gap 14 Basophils # 0.0 Basophils % 0.0 Blood Morphology Comment Blood Urea Nitrogen 9 Calcium Level 8.7 Carbon Dioxide Level 24 Chloride Level 104 Creatinine 0.67 Eosinophils # 0.1 Eosinophils % 0.8 Glucose Level 104 Hematocrit 34.0 L Hemoglobin 10.8 L Lymphocytes # 0.9 Lymphocytes % 12.5 L Magnesium Level 1.8 Mean Corpuscular Hemoglobin 22.3 L Mean Corpuscular Hemoglobin Concent 31.8 L Mean Corpuscular Volume 70.2 L Mean Platelet Volume 8.9 Monocytes # 0.7 Monocytes % 9.6 Neutrophils # 5.6 Neutrophils % 77.1 H Nucleated Red Blood Cells # 0.0 Nucleated Red Blood Cells % 0.0 Phosphorus Level 2.0 L Platelet Count 229 Potassium Level 3.3 L Red Blood Count 4.84 Red Cell Distribution Width 16.2 H Sodium Level 139 White Blood Count 7.3 # Medications Medications Current Medications Ondansetron HCl (Zofran Inj) 4 mg Q6H PRN IV NAUSEA AND/OR VOMITING; Start at 17:00 Acetaminophen (Tylenol Supp) 650 mg Q6H PRN [place] PAIN LEVEL 1-3 OR FEVER Last administered on 12/03/16 05:12; Admin Dose 650 MG; Start 11/30/16 at 17:00 Pantoprazole (Protonix Iv) 40 mg DAILY@06 IV Last administered on 12/03/16 05: 13; Admin Dose 40 MG; Start 12/01/16 at 06:00 Enoxaparin Sodium 40 mg 40 mg DAILY SC Last administered on 12/03/16 09:04; Admin Dose 40 MG; Start 12/01/16 at 09:00 Piperacillin Sod/ Tazobactam Sod (Zosyn 3.375gm/ 100 ml (Pmx)) 100 ml @ 200 mls /hr Q6 IVPB Last administered on 12/03/16 12:00; Admin Dose 200 MLS/HR; Start 11/30/16 at 18:00 Hydralazine HCl 5 mg 5 mg Q4H PRN IV ELEVATED BLOOD PRESSURE Last administered on 12/03/16 15:20; Admin Dose 5 MG; Start 12/01/16 at 22:00 Dextrose/Sodium Chloride (D5-1/2ns) 1,000 ml @ 80 mls/hr [id number] IV Last administered on 12/03/16 09:04; Admin Dose 80 MLS/HR; Start 12/02/16 at 09:00 Hydromorphone HCl (Dilaudid) 1 mg Q3 PRN IV PAIN Last administered on 15:12; Admin Dose 1 MG; Start 12/02/16 at 10:00 Tamsulosin HCl (Flomax) 0.4 mg HS PO Last administered on 12/02/16 20:37; Admin Dose 0.4 MG; Start 12/02/16 at 21:00 Nitroglycerin (Nitroglycerin 0.1 Mg/Hr) 1 patch DAILY TRANSDERM Last administered on 12/03/16 09:03; Admin Dose 1 PATCH; Start 12/02/16 at 14:30 Metoprolol Tartrate (Lopressor) 50 mg BID PO Last administered on 12/03/16 09: 03; Admin Dose 50 MG; Start 12/03/16 at 09:00 IRWIN COE MD Dec 03, 2016 15:36
[2016-12-03 16:31] VITALS: BP 159/77; PULSE 71; RESP 16
--- NOTE | 2016-12-03 17:45 | PN ---
DATE: SUBJECTIVE: The patient was seen early this morning. He wanted to eat. We decided to advance his diet to clear liquid diet as I was informed that the patient's abdominal pain is better. The patien t also was seen by the filter helper. Echocardiogram was ordered. Currently he denies any chest last n. OBJECTIVE: VITAL SIGNS: Temperature 98.8, pulse 71, respirations 16, blood pressure 159/77, saturation 96% on room air. GENERAL: The patient is in no acute distress. HEENT: Normocephalic, atraumatic. CARDIOVASCULAR: S1, S2, regular rate and rhythm. LUNGS: Clear. ABDOMEN: Soft. Positive tender to palpation in the left lower quadrant. EXTREMITIES: No clubbing, cyanosis, or edema. LABORATORY DATA: White count is 7.3, hemoglobin 10.8, hematocrit 34, platelets 229, neutrophils 77% , lymphocytes 13%. Chemistry: Sodium 139, potassium 3.3, low, chloride 104, bicarbonate 24, BUN is 9, creatinine 0.67, glucose of 104, phosphorus 2.0, magnesium 1.8. Troponin is negative. Stool fo r C. diff is negative. Blood culture is negative. CT scan of the abdomen and pelvis on 11/30/2016 was reviewed. MEDICATIONS: 1. Lopressor 50 mg b.i.d. 2. Flomax 0.4 at bedtime. 3. Nitroglycerin patch daily. 4. Dilaudid p.r.n. 5. D5 half normal saline at 80 mL an hour. 6. Hydralazine p.r.n. 7. Lovenox 40 mg subcutaneous daily. 8. Protonix 40 IV daily. 9. Zosyn 3.375 IV q. 6. 10. Zofran p.r.n. 11. Tylenol p.r.n. ASSESSMENT AND PLAN: 1. This is a 66-year-old male with history of hypertension, benign prostatic hypertrophy, dyslipide tyra, and nicotine dependency who presented with recurrent episode of diverticulitis, failed outpatie nt management. 2. Acute diverticulitis. Remains on Zosyn. Still has vague pain in the left lower quadrant. Diet was advanced to clear liquid diet. Further management per surgery and GI. May consider repeat CT scan. Plan is otherwise to continue antibiotics and at a later time proceed with colonoscopy and th en colon resection surgery at the site of the diverticulitis. 3. Anemia, stable. 4. Hypertension and episodic chest pain. Serial troponins are negative. We will follow up 2D echo report. Continue beta blockers, Lovenox for DVT prophylaxis. Continue nitroglycerin. 5. Likely chest pain was related to his GI pathology. 6. Benign prostatic hypertrophy. Continue Flomax. 7. Episodic hypoglycemia yesterday on D5 half normal saline. We will discontinue soon as the patie nt's diet was advanced. Again, we will monitor patient's pain closely. Dictated By: OMAR MATUTE/CROW Conf#: [id number] DID#: [id number]
[2016-12-03] MEDS: TAMSULOSIN (SR) 0.4 MG CAP PO SCH (20:26)
[2016-12-03 20:45] VITALS: BP_SYST 157; BP_SYST 185; BP_DIAS 81; BP_DIAS 90; PULSE 78; RESP 21
[2016-12-03 21:53] VITALS: BP 150/71; PULSE 66
[2016-12-03] MEDS: ZOLPIDEM 5 MG TAB PO PRN (23:13)
--- NOTE | 2016-12-03 23:23 | PN ---
Date/Time of Note Date/Time of Note DATE: 12/03/16 TIME: 23:21 Assessment/Plan Lines/Catheters IV Catheter Type (from [facility]): Peripheral IV Colon in Place (from [facility]): No Assessment/Plan Chief Complaint/Hosp Course 1. Acute/subacute microperforated sigmoid diverticulitis. CT without drainable collection. -IV antibiotics -IV fluids -Clears -Recommend antibiotics with conservative tx if continues to work and then bring back patient for elective laparoscopic sigmoid colectomy in a few months after outpatient colonoscopy 2. Microcytic anemia -Check B12 & folate -Monitor -Will need outpatient upper and lower scope prior to surgical intervention 3. Hypertension -Nutrition and medication control 4. BPH -Flomax 5. Dyslipidemia -Nutrition and possible medication control 6. Nephrolithiasis and renal cysts -Encourage adequate fluid consumption -Outpatient renal follow-up 7. Retroperitoneal and periaortic lymphadenopathy probably secondary to inflammatory changes above. However need to rule out malignancy. -After acute infection episodes has been treated, patient will benefit from outpatient colonoscopy 8. Bilateral inguinal hernias, asymptomatic -Eventual surgical repair, as needed 9. Chest pain, ? etiology. Improved. -w/u per cardiology and primary Thank you, Problems: Subjective 24 Hr Interval Summary Flatus and liquid bm. No fevers or chills. No cp. No shortness of breath. No visual or neurologic changes. No nausea or vomiting. Abdominal pain persists but improving. No dysuria. No joint swelling. No rashes. Exam/Review of Systems Vital Signs Vitals Vital Signs Date Time Temp Pulse Resp B/P Pulse Ox O2 Delivery O2 Flow Rate FiO2 12/03/16 21:53 66 150/71 12/03/16 20:45 98.4 21 97 12/03/16 16:31 Room Air Intake and Output 12/02/16 12/02/16 12/03/16 15:00 23:00 07:00 Intake Total 280 ml 1060 ml 300 ml Output Total 900 ml 750 ml Balance 280 ml 160 ml -450 ml Exam Free Text/Dictation Constitutional: alert, oriented, No distress Psych: nl mood/affect, No anxiety, No confusion Head: atraumatic, normocephalic Eyes: EOMI, PERRL, nl conjunctiva, No icteric ENMT: mucosa pink and moist, nl external ears & nose Neck: non-tender, No jvd Respiratory: normal air movement, No congested cough, No labored breathing Cardiovascular: regular rate and rhythm, No edema Gastrointestinal: soft, tender (lower abdomen. Less than yesterday), No distended, No rebound or guarding Musculoskeletal: nl extremities to inspection, nl gait and stance, No joint tenderness Extremities: normal pulses, No calf tenderness, No cyanosis, No edema Neurological: nl mental status, nl speech, nl strength Skin: nl turgor, No diaphoresis, No rash or lesions Lymph: nl lymph nodes Results Result Diagram: 12/03/16 0510 12/03/16 0510 BELA SHINE MD Dec 03, 2016 23:22
[2016-12-04] MEDS: PANTOPRAZOLE 40 MG INJ IV SCH (05:29)
[2016-12-04] MEDS: PIPER-TAZO 3.375 GM IV (PMX) 100 ML IVPB SCH ×3 (05:29→17:17)
[2016-12-04 05:30] LABS: BASOPHILS % 0.2 % (0.0-2.0); EOSINOPHILS # 0.2 10^3/ul (0.0-0.5); EOSINOPHILS % 2.3 % (0.0-7.0); HEMATOCRIT 34.6 % (42.0-52.0); HEMOGLOBIN 10.9 g/dl (14.0-18.0); LYMPHOCYTES # 1.2 10^3/ul (0.8-2.9); LYMPHOCYTES % 17.5 % (15.0-51.0); MEAN CORPUSCULAR HEMOGLOBIN 22.1 pg (29.0-33.0); MEAN CORPUSCULAR HGB CONC 31.6 g/dl (32.0-37.0); MEAN CORPUSCULAR VOLUME 69.9 fl (82.0-101.0); MEAN PLATELET VOLUME 8.7 fl (7.4-10.4); MONOCYTE # 0.7 10^3/ul (0.3-0.9); MONOCYTES % 9.7 % (0.0-11.0); NEUTROPHIL # 4.7 10^3/ul (1.6-7.5); NEUTROPHILS % 70.3 % (39.0-77.0); PLATELET COUNT 246 10^3/UL (140-440); RED BLOOD COUNT 4.95 10^6/ul (4.70-6.10); RED CELL DISTRIBUTION WIDTH 16.8 % (11.5-14.5); UNCORRECTED WBC 6.7 10^3/ul (4.8-10.8); WHITE BLOOD COUNT 6.7 10^3/ul (4.8-10.8)
[2016-12-04 05:56] LABS: CONDITION 1; LH ANALYZER COMMENTS 1
[2016-12-04 06:00] LABS: ALBUMIN 3.6 g/dl (3.3-4.9)
[2016-12-04 06:01] LABS: POTASSIUM 3.4 mmol/L (3.5-5.1)
[2016-12-04 06:03] LABS: ALBUMIN/GLOBULIN RATIO 1.02; BILIRUBIN,INDIRECT 0.2 mg/dl (0-1.1); BILIRUBIN,TOTAL 0.2 mg/dl (0.2-1.3); CREATININE 0.67 mg/dl (0.61-1.24); TOTAL PROTEIN 7.1 g/dl (6.1-8.1)
[2016-12-04 06:04] LABS: MAGNESIUM 2.2 mg/dl (1.7-2.5)
[2016-12-04] MEDS: HYDROmorphONE 1 MG/ML SYG IV PRN ×2 (06:13→14:11)
[2016-12-04 07:03] LABS: CK-MB 0.7 ng/ml (0.0-2.4)
[2016-12-04 07:04] LABS: TROPONIN-I 0.019 ng/ml (0.00-0.12)
[2016-12-04 07:53] VITALS: BP 158/82; RESP 18
[2016-12-04] MEDS ORDERED: LORAZEPAM 2 MG INJ IV PRN (08:30)
[2016-12-04] MEDS: IPRATROPIUM (NEB) 0.5 MG/2.5 ML AMP HHN SCH ×3 (08:30→19:46)
[2016-12-04] MEDS: ALBUTEROL 0.083% (NEB) 2.5 MG/3 ML AMP HHN SCH ×3 (08:30→19:46)
[2016-12-04] MEDS ORDERED: POTASSIUM CHLORIDE 250 ML IVPB ONE (09:00)
[2016-12-04] MEDS: METOPROLOL 50 MG TAB PO SCH ×2 (09:42→21:38)
[2016-12-04] MEDS: ENOXAPARIN 40 MG/0.4 ML SYG SC SCH (09:45)
[2016-12-04] MEDS: NITROGLYCERIN 0.1 MG/HR PATCH TRANSDERM SCH (09:47)
[2016-12-04] MEDS: DEXTROSE 5%-0.45% NACL 1,000 ML IV SCH ×3 (11:00→23:30)
--- NOTE | 2016-12-04 14:55 | PN ---
Date/Time of Note Date/Time of Note DATE: 12/04/16 TIME: 14:53 Assessment/Plan Lines/Catheters IV Catheter Type (from [facility]): Peripheral IV Colon in Place (from [facility]): No Assessment/Plan Chief Complaint/Hosp Course 1. Acute/subacute microperforated sigmoid diverticulitis. CT without drainable collection. -IV antibiotics -IV fluids -Clears -Recommend continued antibiotics with conservative tx if continues to work and then bring back patient for elective laparoscopic sigmoid colectomy in a few months after outpatient colonoscopy 2. Microcytic anemia -Check B12 & folate -Monitor -Will need outpatient upper and lower scope prior to surgical intervention 3. Hypertension -Nutrition and medication control 4. BPH -Flomax 5. Dyslipidemia -Nutrition and possible medication control 6. Nephrolithiasis and renal cysts -Encourage adequate fluid consumption -Outpatient renal follow-up 7. Retroperitoneal and periaortic lymphadenopathy probably secondary to inflammatory changes above. However need to rule out malignancy. -After acute infection episodes has been treated, patient will benefit from outpatient colonoscopy 8. Bilateral inguinal hernias, asymptomatic -Eventual surgical repair, as needed 9. Chest pain, ? etiology. Improved. -w/u per cardiology and primary Thank you, Problems: Subjective 24 Hr Interval Summary Flatus and bm. No fevers or chills. No chest pain. No shortness of breath. No visual or neurologic changes. No nausea or vomiting. Abdominal pain improving. No dysuria. No joint swelling. No rashes. Exam/Review of Systems Vital Signs Vitals Vital Signs Date Time Temp Pulse Resp B/P Pulse Ox O2 Delivery O2 Flow Rate FiO2 12/04/16 07:53 98.1 79 18 158/82 12/03/16 20:45 97 12/03/16 16:31 Room Air Intake and Output 12/03/16 12/03/16 12/04/16 15:00 23:00 07:00 Intake Total 315 ml 1700 ml 1560 ml Output Total 800 ml 500 ml Balance 315 ml 900 ml 1060 ml Exam Free Text/Dictation Constitutional: alert, oriented, No distress Psych: nl mood/affect, No anxiety, No confusion Head: atraumatic, normocephalic Eyes: EOMI, PERRL, nl conjunctiva, No icteric ENMT: mucosa pink and moist, nl external ears & nose Neck: non-tender, No jvd Respiratory: normal air movement, No congested cough, No labored breathing Cardiovascular: regular rate and rhythm, No edema Gastrointestinal: soft, tender (lower abdomen. Less than yesterday), No distended, No rebound or guarding Musculoskeletal: nl extremities to inspection, nl gait and stance, No joint tenderness Extremities: normal pulses, No calf tenderness, No cyanosis, No edema Neurological: nl mental status, nl speech, nl strength Skin: nl turgor, No diaphoresis, No rash or lesions Lymph: nl lymph nodes Results Result Diagram: 12/04/16 0425 12/04/16 0425 BELA SHINE MD Dec 04, 2016 14:55
--- NOTE | 2016-12-04 16:14 | RADRPT ---
Echocardiogram Report Patient Name: BELA JAVED Gender: Male Date: 1950 Study Date: 03-Dec-2016 Nail Specialist: [facility] Location: 2247 Ref. Physician: NADIA HWANG Quality: Adequate Procedures: Transthoracic echocardiogram with complete 2D, M-Mode, and doppler examination. Indications: Chest Pain. 2D/M Mode Doppler Measurement Value Normal Ranges Measurement Value Normal Ranges LVIDd 2D 4.4 3.5 - 5.6 cm AV Peak Tim 1.8 m/sec LVIDs 2D 2.7 2.1 - 4.1 cm AV Peak PG 12.0 mmHg FS 2D 38.9 % AI Peak PG 14.0 mmHg LVPWd 2D 1.3 0.6 - 1.1 cm AI Peak Tim 1.9 m/sec IVSd 2D 1.3 0.6 - 1.1 cm AI PHT 439.0 msec IVS/LVPW 2D 1.0 LVOT Peak Tim 1.3 m/sec AoR Diam 2D 2.7 2.0 - 3.7 cm LVOT Peak PG 7.0 mmHg LA/Ao 2D 1 0 - 1 MV E Peak Tim 0.8 m/sec EDV 2D 86.4 cm3 MV A Peak Tim 0.7 m/sec ESV 2D 19.7 cm3 MV E/A 1.1 LA Dimen 2D 3.4 2.3 - 4.0 cm MV Decel Time 268 msec MV E/A 1.1 TR Peak Tim 2.5 m/sec TR Peak PG 25.0 mmHg Findings Left Ventricle: Hyperdynamic left ventricular systolic function. Normal left ventricular cavity size. Mild concentric left ventricular hypertrophy. Ejection fraction is visually estimated at 70 %. Tissue Doppler/Mitral Doppler indices are consistent with impaired relaxation (Stage I diastolic dysfunction). Right Ventricle: Normal right ventricular size. Normal right ventricular systolic function. Left Atrium: The left atrium is normal in size. Right Atrium: The right atrium is normal in size. Mitral Valve: Mild mitral leaflet calcification. Trace mitral regurgitation. Aortic Valve: Trileaflet aortic valve. Mild aortic valve regurgitation. Tricuspid Valve: Tricuspid valve not well visualized. Estimated peak PA systolic pressure 28 mmHg. There is mild tricuspid regurgitation. Pulmonic Valve: There is trace pulmonic regurgitation. Pericardium: Normal pericardium with no significant pericardial effusion. Aorta: Normal aortic root. IVC: Normal size and normal respiratory collapse consistent with normal right atrial pressure. Conclusions 1.Hyperdynamic left ventricular systolic function. Normal left ventricular cavity size. Mild concentric left ventricular hypertrophy. Ejection fraction is visually estimated at 70 %. Tissue Doppler/Mitral Doppler indices are consistent with impaired relaxation (Stage I diastolic dysfunction). 2.Trileaflet aortic valve. Mild aortic valve regurgitation. 3.Mild mitral leaflet calcification. Trace mitral regurgitation. 4.Tricuspid valve not well visualized. Estimated peak PA systolic pressure 28 mmHg. There is mild tricuspid regurgitation. Electronically Signed By: Nadia Hwang 04-Dec-2016 16:13:44 -0800 Patient Name: BELA JAVED Study Date: 03-Dec-[id number]
--- NOTE | 2016-12-04 16:36 | RADRPT ---
PROCEDURE: XR Chest. CLINICAL INDICATION: sob TECHNIQUE: Frontal chest x-ray was obtained. COMPARISON: Chest x-ray November 30, 2016 FINDINGS: Heart is not enlarged. Mediastinum is not widened. No hilar masses seen. Lungs are clear of any i nfiltrates. There is no effusion or pneumothorax. IMPRESSION: No evidence for active cardiopulmonary disease. .Kelvin Trevino MD, MD Date Time Electronically viewed and signed by .Kelvin Trevino MD, on 12/04/2016 16:35 .A/
[2016-12-04] MEDS: DUTASTERIDE 0.5 MG CAP PO SCH (17:17)
[2016-12-04] MEDS: PANTOPRAZOLE (EC) 40 MG TAB PO SCH (17:17)
[2016-12-04] MEDS ORDERED: PANTOPRAZOLE 40 MG INJ IV SCH (18:00)
--- NOTE | 2016-12-04 19:34 | CONS ---
Date/Time of Note Date/Time of Note DATE: 12/04/16 TIME: 19:34 Assessment/Plan Assessment/Plan Additional Assessment/Plan Additional Assessment/Plan IMPRESSION: 1. Acute diverticulitis with microperforation and small abscess formation. 2. Hypertension. 3. Benign prostatic hypertrophy. 4. Dyslipidemia. 5. History of nicotine addiction. 6.chest pain Plan continue antibiotics pain management clear liquid diet repeat ct scan Consultation Date/Type/Reason Admit Date/Time Nov 30, 2016 at 14:18 24 HR Interval Summary Constitutional: improved Exam/Review of Systems Vital Signs Vitals Vital Signs Date Time Temp Pulse Resp B/P Pulse Ox O2 Delivery O2 Flow Rate FiO2 12/04/16 07:53 98.1 79 18 158/82 12/03/16 20:45 97 12/03/16 16:31 Room Air Intake and Output 12/03/16 12/03/16 12/04/16 15:00 23:00 07:00 Intake Total 315 ml 1700 ml 1560 ml Output Total 800 ml 500 ml Balance 315 ml 900 ml 1060 ml Exam Constitutional: alert, oriented, well developed Psych: nl mood/affect, no complaints Head: atraumatic, normocephalic Eyes: EOMI, PERRL, nl conjunctiva, nl lids, nl sclera ENMT: nl external ears & nose, nl lips & teeth, nl nasal mucosa & septum Neck: non-tender, supple Respiratory: clear to auscultation, normal air movement Cardiovascular: nl pulses, regular rate and rhythm Gastrointestinal: nl liver, spleen, non-tender, soft Musculoskeletal: nl extremities to inspection, nl gait and stance Extremities: normal pulses Neurological: THIRD RIGGER II-XII intact, nl mental status, nl speech, nl strength Skin: nl turgor, No rash or lesions Lymph: nl lymph nodes Results Result Diagram: 12/04/16 04212/04/16 0425 Results 24 hrs Laboratory Tests Test 12/04/16 04:25 Alanine Aminotransferase (ALT/SGPT) 58 Albumin 3.6 Albumin/Globulin Ratio 1.02 Alkaline Phosphatase 95 Anion Gap 15 Aspartate Amino Transf (AST/SGOT) 87 #H Basophils # 0.0 Basophils % 0.2 Blood Morphology Comment Blood Urea Nitrogen 5 L Calcium Level 9.0 Carbon Dioxide Level 24 Chloride Level 108 Creatine Kinase 66 Creatine Kinase Index 1.1 Creatinine 0.67 Creatinine Kinase MB (Mass) 0.70 Direct Bilirubin 0.00 Eosinophils # 0.2 Eosinophils % 2.3 Globulin 3.50 H Glucose Level 107 Hematocrit 34.6 L Hemoglobin 10.9 L Indirect Bilirubin 0.2 Lymphocytes # 1.2 Lymphocytes % 17.5 Magnesium Level 2.2 Mean Corpuscular Hemoglobin 22.1 L Mean Corpuscular Hemoglobin Concent 31.6 L Mean Corpuscular Volume 69.9 L Mean Platelet Volume 8.7 Monocytes # 0.7 Monocytes % 9.7 Neutrophils # 4.7 Neutrophils % 70.3 Nucleated Red Blood Cells # 0.0 Nucleated Red Blood Cells % 0.0 Platelet Count 246 Potassium Level 3.4 L Red Blood Count 4.95 Red Cell Distribution Width 16.8 H Sodium Level 144 Total Bilirubin 0.2 Total Protein 7.1 Troponin I 0.019 White Blood Count 6.7 Medications Medications Current Medications Ondansetron HCl (Zofran Inj) 4 mg Q6H PRN IV NAUSEA AND/OR VOMITING; Start at 17:00 Acetaminophen (Tylenol Supp) 650 mg Q6H PRN [place] PAIN LEVEL 1-3 OR FEVER Last administered on 12/03/16 05:12; Admin Dose 650 MG; Start 11/30/16 at 17:00 Enoxaparin Sodium 40 mg 40 mg DAILY SC Last administered on 12/04/16 09:45; Admin Dose 40 MG; Start 12/01/16 at 09:00 Piperacillin Sod/ Tazobactam Sod (Zosyn 3.375gm/ 100 ml (Pmx)) 100 ml @ 200 mls /hr Q6 IVPB Last administered on 12/04/16 17:17; Admin Dose 200 MLS/HR; Start 11/30/16 at 18:00 Hydralazine HCl 5 mg 5 mg Q4H PRN IV ELEVATED BLOOD PRESSURE Last administered on 12/03/16 15:20; Admin Dose 5 MG; Start 12/01/16 at 22:00 Dextrose/Sodium Chloride (D5-1/2ns) 1,000 ml @ 80 mls/hr [id number] IV Last administered on 12/04/16 11:58; Admin Dose 80 MLS/HR; Start 12/02/16 at 09:00 Hydromorphone HCl (Dilaudid) 1 mg Q3 PRN IV PAIN Last administered on 14:11; Admin Dose 1 MG; Start 12/02/16 at 10:00 Tamsulosin HCl (Flomax) 0.4 mg HS PO Last administered on 12/03/16 20:26; Admin Dose 0.4 MG; Start 12/02/16 at 21:00 Nitroglycerin (Nitroglycerin 0.1 Mg/Hr) 1 patch DAILY TRANSDERM Last administered on 12/04/16 09:47; Admin Dose 1 PATCH; Start 12/02/16 at 14:30 Metoprolol Tartrate (Lopressor) 50 mg BID PO Last administered on 12/04/16 09: 42; Admin Dose 50 MG; Start 12/03/16 at 09:00 Zolpidem Tartrate (Ambien) 5 mg HS PRN PO INSOMNIA Last administered on 23:13; Admin Dose 5 MG; Start 12/03/16 at 20:00 Pantoprazole (Protonix Tab) 40 mg BID@,18 PO Last administered on 12/04/16 17:17; Admin Dose 40 MG; Start 12/04/16 at 18:00 Amlodipine Besylate (Norvasc) 5 mg DAILY PO ; Start 12/05/16 at 09:00 Lorazepam (Ativan) 1 mg Q4 PRN IV AGITATION/ANXIETY; Start 12/04/16 at 17:00 Dutasteride (Avodart) 0.5 mg DAILY PO Last administered on 12/04/16 17:17; Admin Dose 0.5 MG; Start 12/04/16 at 16:30 Lactobacillus Acidoph/Bulgaricus (Floranex) 1 tab TID PO ; Start 12/04/16 at 21: 00 IRWIN COE MD Dec 04, 2016 19:34
[2016-12-04 20:28] VITALS: BP 148/87; RESP 20
[2016-12-04] MEDS: TAMSULOSIN (SR) 0.4 MG CAP PO SCH (21:37)
[2016-12-04] MEDS: LACTOBACILLUS CHEW TAB PO SCH (21:37)
[2016-12-04 21:38] VITALS: BP 183/92; PULSE 80
[2016-12-04 22:26] VITALS: BP 164/88; PULSE 71
[2016-12-04] MEDS: hydrALAzine 20 MG INJ IV PRN (22:33)
[2016-12-04] MEDS: ZOLPIDEM 5 MG TAB PO PRN (23:41)
[2016-12-04] MEDS: LORAZEPAM 2 MG INJ IV PRN (23:41)
[2016-12-05] MEDS: PIPER-TAZO 3.375 GM IV (PMX) 100 ML IVPB SCH ×5 (00:01→23:58)
[2016-12-05] MEDS: DEXTROSE 5%-0.45% NACL 1,000 ML IV SCH ×3 (04:03→23:59)
[2016-12-05] MEDS: PANTOPRAZOLE (EC) 40 MG TAB PO SCH ×2 (05:29→17:21)
[2016-12-05 05:33] VITALS: BP 159/87; PULSE 84
[2016-12-05 06:14] LABS: POTASSIUM 3.8 mmol/L (3.5-5.1)
[2016-12-05 06:17] LABS: CALCIUM 9.1 mg/dl (8.4-10.2); CREATININE 0.67 mg/dl (0.61-1.24)
[2016-12-05 06:19] LABS: PHOSPHORUS 3.3 mg/dl (2.5-4.9)
--- NOTE | 2016-12-05 06:40 | PN ---
DATE: 12/04/2016 SUBJECTIVE: The patient today had episodes of chest pain and questionable panic attack. Responded well to Ativan. The patient appears to be more calm. He does feel indigestion as well. Case discu ssed in detail with Dr. Jimi Posey as we are considering doing a CAT scan but the patient would like to defer that to Tuesday. He still has vague pain in the left lower quadrant. PHYSICAL EXAMINATION: VITAL SIGNS: Temperature 98.1, pulse 79, respirations 18, blood pressure 158/82, saturation 97% on room air. GENERAL: No acute distress. HEENT: Normocephalic, atraumatic. The patient is pale. CARDIOVASCULAR: S1 and S2, regular rate. LUNGS: Clear. ABDOMEN: Soft, tender to palpation in left lower quadrant and mid abdomen in the lower area. EXTREMITIES: No clubbing, cyanosis, or edema. LABORATORIES: Sodium 144, potassium 3.4, chloride 108, bicarbonate is 24, BUN 5, creatinine 0.67, g lucose of 107. White count 6.7, hemoglobin 10.9, hematocrit 35, platelet count 246 with normal diff erential. The patient's stool for C. diff was negative. MEDICATIONS: Include: 1. Protonix 40 IV b.i.d. 2. Ativan 1 mg IV q.6 p.r.n. 3. Atrovent and Proventil every 6 hours. 4. Ambien 5 at bedtime p.r.n. 5. Lopressor 50 b.i.d. 6. Flomax 0.4 at bedtime. 7. Nitroglycerin patch daily. 8. Dilaudid 1 mg IV q.3 p.r.n. 9. On D5 half normal at 80 mL an hour. 10. Hydralazine p.r.n. 11. Lovenox 40 mg subcutaneous daily. 12. Zosyn 3.375 IV q.6. 13. Zofran p.r.n. 14. Tylenol p.r.n. ASSESSMENT AND PLAN: This is an unfortunate 66-year-old male with history of benign prostatic hyper trophy, dyslipidemia, nicotine dependency, presents with recurrent episode of diverticulitis, failed outpatient management. 1. Acute diverticulitis. Continue Zosyn, IV fluids. Diet for now, clear liquids, advance further per GI and surgical team. Will likely repeat CAT scan on Tuesday to evaluate current condition. 2. Anxiety and panic attack. Ativan p.r.n. 3. Hypertension. Titrate medications up. The patient was seen by the vc++ developer. 4. Continue Protonix and will increase it to b.i.d. dosing. Consider adding ranitidine as well. 5. Benign prostatic hypertrophy, on Flomax. 6. Advised him to move around the floor to be active. Will add incentive spirometer as patient is in bed all the time. We will follow closely. Dictated By: OMAR MATUTE/CROW Conf#: [id number] DID#: [id number]
[2016-12-05] MEDS: ALBUTEROL 0.083% (NEB) 2.5 MG/3 ML AMP HHN SCH ×4 (07:45→20:00)
[2016-12-05 07:54] VITALS: BP 184/91; RESP 18
[2016-12-05] MEDS: IPRATROPIUM (NEB) 0.5 MG/2.5 ML AMP HHN SCH ×4 (08:00→19:46)
[2016-12-05 08:25] LABS: BASOPHILS % 0.2 % (0.0-2.0); CONDITION 1; EOSINOPHILS # 0.2 10^3/ul (0.0-0.5); EOSINOPHILS % 3.3 % (0.0-7.0); HEMATOCRIT 33.1 % (42.0-52.0); HEMOGLOBIN 10.4 g/dl (14.0-18.0); LH ANALYZER COMMENTS 1; LYMPHOCYTES # 1.3 10^3/ul (0.8-2.9); LYMPHOCYTES % 24.4 % (15.0-51.0); MEAN CORPUSCULAR HEMOGLOBIN 22.1 pg (29.0-33.0); MEAN CORPUSCULAR HGB CONC 31.3 g/dl (32.0-37.0); MEAN CORPUSCULAR VOLUME 70.6 fl (82.0-101.0); MONOCYTE # 0.6 10^3/ul (0.3-0.9); NEUTROPHIL # 3.2 10^3/ul (1.6-7.5); NEUTROPHILS % 60.1 % (39.0-77.0); PLATELET COUNT 233 10^3/UL (140-440); RED BLOOD COUNT 4.69 10^6/ul (4.70-6.10); RED CELL DISTRIBUTION WIDTH 16.7 % (11.5-14.5); UNCORRECTED WBC 5.4 10^3/ul (4.8-10.8); WHITE BLOOD COUNT 5.4 10^3/ul (4.8-10.8)
[2016-12-05] MEDS: LACTOBACILLUS CHEW TAB PO SCH ×3 (08:31→20:53)
[2016-12-05] MEDS: NITROGLYCERIN 0.1 MG/HR PATCH TRANSDERM SCH (08:31)
[2016-12-05] MEDS: METOPROLOL 50 MG TAB PO SCH ×2 (08:32→20:55)
[2016-12-05] MEDS: DUTASTERIDE 0.5 MG CAP PO SCH (08:32)
[2016-12-05] MEDS: ENOXAPARIN 40 MG/0.4 ML SYG SC SCH (08:36)
[2016-12-05] MEDS ORDERED: AMLODIPINE 5 MG TAB PO SCH (09:00)
[2016-12-05] MEDS: hydrALAzine 20 MG INJ IV PRN (09:53)
[2016-12-05] MEDS: HYDROmorphONE 1 MG/ML SYG IV PRN ×2 (10:23→16:05)
[2016-12-05 10:28] VITALS: BP 142/66; PULSE 88
[2016-12-05] MEDS: LORAZEPAM 2 MG INJ IV PRN (17:21)
--- NOTE | 2016-12-05 17:24 | PN ---
DATE: 12/05/2016 PROGRESS NOTE The patient seen. The patient states he had urinary frequency all night, he could not control his u rine and he urinated in the room. He has been experiencing on and off pain in the abdomen as well, requiring pain medications. The patient was requesting diet to be advanced to liquid diet. Blood p ressure has been elevated as well in the past 24 hours. Case discussed with family and at [facility]. VITAL SIGNS: Temperature 97.8, pulse 88, respirations 18, blood pressure 184/91, saturation 97%, bl ood pressure improved and later to 142/66. GENERAL: The patient is in no acute distress. HEENT: Normocephalic, atraumatic. The patient is pale. CARDIOVASCULAR: Positive S1 and S2, regular rate. LUNGS: Clear. ABDOMEN: Positive tenderness to palpation in left lower quadrant and mid abdomen, slightly less sev ere. EXTREMITIES: No clubbing, cyanosis, or edema. LABORATORY DATA: White count is 5.4, hemoglobin 10.4, hematocrit 33, platelet count 233, neutrophil s 60%, lymphocytes 25%. Chemistry: Sodium is 145, potassium 3.8, chloride 110, bicarbonate 24, BUN is 4, creatinine 0.67, glucose of 97. Stool occult blood turned out negative. Stool culture showe d coliform +3 and stool for C. diff turned out to be negative, and blood cultures were negative on a dmission. Chest x-ray dated yesterday shows no evidence of acute cardiopulmonary disease. Echocard iogram shows a normal ejection fraction 70%. There is grade I diastolic dysfunction. See exact rep ort. ASSESSMENT AND PLAN: This is a 66-year-old male with history of benign prostatic hypertrophy, dysli pidemia, nicotine dependency, presented with recurrent episodes of diverticulitis, failed outpatient management. 1. Acute diverticulitis. The patient remains on Zosyn. May consider adding Flagyl as well and if pain persists, may consider a CT scan of the abdomen. In the meantime, we will advance diet to elder r liquid diet and monitor the patient's symptoms. 2. Hypertension. Increase metoprolol to 100 mg b.i.d. and increase amlodipine to 5 mg b.i.d. Lizzy nue p.r.n. hydralazine. Continue pain control. 3. Anxiety disorder and panic attacks. Continue p.r.n. Ativan. 4. Continue Protonix for gastrointestinal prophylaxis. Continue Lovenox for deep venous thrombosis prophylaxis. 5. Benign prostatic hypertrophy, on Avodart and Flomax. Increase Flomax to b.i.d. dosing. 6. I advised him to get out of bed and ambulate. Continue to monitor condition. Again, may consid er CT scan of abdomen and pelvis to decide and see if the patient is improving and further plan of c are will be decided with GI and surgical team. We will follow. Dictated By: OMAR MATUTE/CROW Conf#: [id number] DID#: [id number]
--- NOTE | 2016-12-05 18:34 | PN ---
DATE: 12/05/2016 CARDIOLOGY FOLLOWUP SUBJECTIVE: Discussed with his . Discussed with the staff. The patient was unable to control his urine last night. Otherwise denies any chest pain or pressure to me. Abdominal pain has improv ed. MEDICATIONS: Reviewed. PHYSICAL EXAMINATION: VITAL SIGNS: Temperature 97.8, heart rate of 88, blood pressure 142/66, respiration rate of 18, sat urating 97%. HEENT: Normocephalic, atraumatic. Pupils are equal. CARDIOVASCULAR: Regular rate and rhythm. PULMONARY: With no wheezes heard. GASTROINTESTINAL: Soft. Mild tenderness to palpation. EXTREMITIES: No significant edema. NEUROLOGIC: Awake, responds appropriately. PSYCHIATRIC: Appears to be calm. LABORATORY: WBC of 5.4, hemoglobin 10.4, platelets of 233. Sodium 145, potassium 3.8, BUN of 4, cr eatinine 0.67, glucose 97. ASSESSMENT AND PLAN: 1. Atypical chest pain, has resolved. 2. Hypertension, increased dose of beta-jose and Norvasc now. 3. Diverticulitis on antibiotics. 4. Abdominal pain secondary to above. 5. Dyslipidemia. RECOMMENDATIONS: We will continue with the current dose of metoprolol and Norvasc. GI workup and t reatment as per surgery and GI recommendations. Antibiotic as per GI recommendations. We will cont inue to monitor him while here. We will correct electrolytes as needed. The patient advised to fol low with me as an outpatient and to schedule for outpatient assessment once the GI discomfort has re solved. Dictated By: NADIA BAKER MD AV/CROW Conf#: [id number] DID#: [id number] CC: OMAR JANE MD;*End*
[2016-12-05 20:50] VITALS: BP 153/76; PULSE 87; RESP 20
[2016-12-05] MEDS: TAMSULOSIN (SR) 0.4 MG CAP PO SCH (20:53)
[2016-12-05] MEDS: AMLODIPINE 5 MG TAB PO SCH (20:54)
--- NOTE | 2016-12-05 22:55 | PN ---
Date/Time of Note Date/Time of Note DATE: 12/05/16 TIME: 22:52 Assessment/Plan Lines/Catheters IV Catheter Type (from [facility]): Peripheral IV Colon in Place (from [facility]): No Assessment/Plan Chief Complaint/Hosp Course 1. Acute/subacute microperforated sigmoid diverticulitis. CT without drainable collection. -IV antibiotics -IV fluids -Diet as tolerated -Recommend continued antibiotics with conservative tx if continues to work and then bring back patient for elective laparoscopic sigmoid colectomy in a few months after outpatient colonoscopy 2. Microcytic anemia -Check B12 & folate -Monitor -Will need outpatient upper and lower scope prior to surgical intervention 3. Hypertension -Nutrition and medication control 4. BPH -Flomax 5. Dyslipidemia -Nutrition and possible medication control 6. Nephrolithiasis and renal cysts -Encourage adequate fluid consumption -Outpatient renal follow-up 7. Retroperitoneal and periaortic lymphadenopathy probably secondary to inflammatory changes above. However need to rule out malignancy. -After acute infection episodes has been treated, patient will benefit from outpatient colonoscopy 8. Bilateral inguinal hernias, asymptomatic -Eventual surgical repair, as needed 9. Chest pain, ? etiology. Improved. 10. Anxiety and Panic Attacks -medical management Thank you, Problems: Subjective 24 Hr Interval Summary Flatus and liquid bm. No fevers or chills. No chest pain. No shortness of breath. No visual or neurologic changes. No nausea or vomiting on diet. Abdominal pain improving. No dysuria. No joint swelling. No rashes. Exam/Review of Systems Vital Signs Vitals Vital Signs Date Time Temp Pulse Resp B/P Pulse Ox O2 Delivery O2 Flow Rate FiO2 12/05/16 10:28 88 142/66 12/05/16 07:54 97.8 18 97 12/04/16 19:49 21 12/03/16 16:31 Room Air Intake and Output 12/04/16 12/04/16 12/05/16 15:00 23:00 07:00 Intake Total 570 ml 1440 ml Output Total 1000 ml Balance 570 ml 440 ml Exam Free Text/Dictation Constitutional: alert, oriented, No distress Psych: nl mood/affect, No anxiety, No confusion Head: atraumatic, normocephalic Eyes: EOMI, PERRL, nl conjunctiva, No icteric ENMT: mucosa pink and moist, nl external ears & nose Neck: non-tender, No jvd Respiratory: normal air movement, No congested cough, No labored breathing Cardiovascular: regular rate and rhythm, No edema Gastrointestinal: soft, tender (lower abdomen. Less than yesterday), No distended, No rebound or guarding Musculoskeletal: nl extremities to inspection, nl gait and stance, No joint tenderness Extremities: normal pulses, No calf tenderness, No cyanosis, No edema Neurological: nl mental status, nl speech, nl strength Skin: nl turgor, No diaphoresis, No rash or lesions Lymph: nl lymph nodes Results Result Diagram: 12/05/16 0425 12/05/16 0425 BELA SHINE MD Dec 05, 2016 22:55
[2016-12-06] MEDS: HYDROmorphONE 1 MG/ML SYG IV PRN ×2 (01:20→14:25)
[2016-12-06] MEDS: LORAZEPAM 2 MG INJ IV PRN ×2 (03:01→20:25)
[2016-12-06] MEDS: PIPER-TAZO 3.375 GM IV (PMX) 100 ML IVPB SCH ×3 (06:46→17:25)
[2016-12-06] MEDS: PANTOPRAZOLE (EC) 40 MG TAB PO SCH ×2 (06:46→17:25)
[2016-12-06 07:44] VITALS: BP 131/61; RESP 16
[2016-12-06] MEDS: ALBUTEROL 0.083% (NEB) 2.5 MG/3 ML AMP HHN SCH ×3 (08:00→20:00)
[2016-12-06] MEDS: IPRATROPIUM (NEB) 0.5 MG/2.5 ML AMP HHN SCH ×3 (08:00→20:00)
[2016-12-06] MEDS: ENOXAPARIN 40 MG/0.4 ML SYG SC SCH (08:14)
[2016-12-06] MEDS ORDERED: IOHEXOL 300MG/ML 30 ML BTL ONE (08:14)
[2016-12-06] MEDS: TAMSULOSIN (SR) 0.4 MG CAP PO SCH ×2 (08:59→20:25)
[2016-12-06] MEDS: DUTASTERIDE 0.5 MG CAP PO SCH (08:59)
[2016-12-06] MEDS: LACTOBACILLUS CHEW TAB PO SCH ×3 (08:59→20:24)
[2016-12-06] MEDS: METOPROLOL 50 MG TAB PO SCH ×2 (09:00→20:23)
[2016-12-06] MEDS: AMLODIPINE 5 MG TAB PO SCH ×2 (09:01→20:24)
[2016-12-06] MEDS: NITROGLYCERIN 0.1 MG/HR PATCH TRANSDERM SCH (09:02)
[2016-12-06] MEDS: DEXTROSE 5%-0.45% NACL 1,000 ML IV SCH ×2 (12:07→16:05)
[2016-12-06 12:21] LABS: ADD UMIC YES; URINE BILIRUBIN (Dip) NEGATIVE (NEGATIVE); URINE BLOOD (Dip) 3+ (NEGATIVE); URINE COLOR LT. YELLOW (YELLOW); URINE GLUCOSE (Dip) NEGATIVE (NEGATIVE); URINE KETONES (Dip) NEGATIVE (NEGATIVE); URINE LEUKOCYTE ESTERASE (Dip) NEGATIVE (NEGATIVE); URINE NITRITE (Dip) NEGATIVE (NEGATIVE); URINE TOTAL PROTEIN (Dip) NEGATIVE (NEGATIVE); URINE UROBILINOGEN (Dip) 0.2 E.U./dL (0.1-1.0)
--- NOTE | 2016-12-06 12:32 | PN ---
Date/Time of Note Date/Time of Note DATE: 12/06/16 TIME: 12:32 Assessment/Plan Lines/Catheters IV Catheter Type (from [facility]): Peripheral IV Colon in Place (from [facility]): No Assessment/Plan Chief Complaint/Hosp Course 1. Acute/subacute microperforated sigmoid diverticulitis. CT without drainable collection. -IV antibiotics -IV fluids -Diet as tolerated -Recommend continued antibiotics with conservative tx if continues to work and then bring back patient for elective laparoscopic sigmoid colectomy in a few months after outpatient colonoscopy 2. Microcytic anemia -Check B12 & folate -Monitor -Will need outpatient upper and lower scope prior to surgical intervention 3. Hypertension -Nutrition and medication control 4. BPH -Flomax 5. Dyslipidemia -Nutrition and possible medication control 6. Nephrolithiasis and renal cysts -Encourage adequate fluid consumption -Outpatient renal follow-up 7. Retroperitoneal and periaortic lymphadenopathy probably secondary to inflammatory changes above. However need to rule out malignancy. -After acute infection episodes has been treated, patient will benefit from outpatient colonoscopy 8. Bilateral inguinal hernias, asymptomatic -Eventual surgical repair, as needed 9. Chest pain, ? etiology. Improved. 10. Anxiety and Panic Attacks -medical management 11. Hematuria ? kidney stone -fluids -monitor h/h -urology consult Thank you, Problems: Subjective 24 Hr Interval Summary Repeat CT noted. Hematuria once last night with penile pain. Urinary frequency today. Flatus and bm. No fevers or chills. No chest pain. No shortness of breath. No visual or neurologic changes. No nausea or vomiting on diet. Abdominal pain improving. No dysuria. No joint swelling. No rashes. Exam/Review of Systems Vital Signs Vitals Vital Signs Date Time Temp Pulse Resp B/P Pulse Ox O2 Delivery O2 Flow Rate FiO2 12/06/16 07:44 98.7 72 16 131/61 96 12/05/16 20:50 Room Air 12/04/16 19:49 21 Intake and Output 12/05/16 12/05/16 12/06/16 15:00 23:00 07:00 Intake Total 660 ml 1220 ml 870 ml Output Total 150 ml 400 ml Balance 660 ml 1070 ml 470 ml Exam Free Text/Dictation Constitutional: alert, oriented, No distress Psych: nl mood/affect, No anxiety, No confusion Head: atraumatic, normocephalic Eyes: EOMI, PERRL, nl conjunctiva, No icteric ENMT: mucosa pink and moist, nl external ears & nose Neck: non-tender, No jvd Respiratory: normal air movement, No congested cough, No labored breathing Cardiovascular: regular rate and rhythm, No edema Gastrointestinal: soft, NT, No distended, No rebound or guarding Musculoskeletal: nl extremities to inspection, nl gait and stance, No joint tenderness Extremities: normal pulses, No calf tenderness, No cyanosis, No edema Neurological: nl mental status, nl speech, nl strength Skin: nl turgor, No diaphoresis, No rash or lesions Lymph: nl lymph nodes Results Result Diagram: 12/05/165 12/05/16 0425 BELA SHINE MD Dec 06, 2016 12:32
[2016-12-06 13:29] LABS: BACTERIA,URINE FEW; URINE RBCS >200 /HPF (0)
[2016-12-06] MEDS ORDERED: IOHEXOL 300MG/ML 150 ML BTL ONE (13:39)
--- NOTE | 2016-12-06 14:38 | RADRPT ---
PROCEDURE: CT Abdomen and Pelvis with contrast. CLINICAL INDICATION: Abdomen and pelvis pain. Left lower quadrant pain. TECHNIQUE: CT scan of the abdomen and pelvis with contrast was performed. The patient was scanned following the uncomplicated intravenous administration of 100 cc of Omnipaque-300. Coronal and sag ittal reformatted images were obtained from the axial source images. Images were reviewed on a high- resolution PACS workstation. Total exam DLP is 600.30 mGy-cm. CTDIvol is X 9.87 mGy. One or more of the following dose reduction techniques were used: Automated exposure control, adjustment of the mA and/or kV according to patient size, use of iterative reconstruction technique. COMPARISON: CT scan of the abdomen and pelvis dated 11/30/2016 which demonstrated diverticulitis o f the descending colon, bilateral renal calculi, and sigmoid colon and bilateral renal cysts. FINDINGS: There is mild atelectasis at both lung bases posteriorly. The lung bases are otherwise normal. The re is no pleural effusion or pericardial effusion. The heart size is normal. The liver is normal in size and attenuation. There is no focal hepatic lesion. The gallbladder and bile ducts are normal. The spleen is normal in size. There is no focal splenic lesion. Both adrenals are normal with no enlargement or mass. The pancreas is unremarkable with no mass or evidence of pancreatitis. Both kidneys demonstrate normal contrast enhancement. there is no solid renal mass or hydronephros is. There are small benign bilateral renal cysts as seen previously. There are nonobstructing bila teral renal calculi, also unchanged. The abdominal aorta is not dilated. There is calcification in the aorta consistent with atheroscler osis. There is no retroperitoneal lymphadenopathy or mass. There is no pelvic lymphadenopathy or mass. The bladder and distal ureters are normal. The appendix is well seen and appears normal. There is diverticulosis of the colon as seen previously. There is thickening of the wall of the low er descending colon and upper sigmoid colon as seen previously. Previously noted surrounding mesent олег edema is slightly improved. Microperforation with small amount of adjacent contained free air and fluid is unchanged. There is no drainable abscess. There is no other free air or free fluid. There are bilateral pars defects at L5. There is no other fracture or lytic lesion. Spinal alignme nt is normal. IMPRESSION: 1. Mild atelectasis at the lung bases posteriorly. 2. Benign bilateral renal cysts and small nonobstructing bilateral renal calculi. 3. Atherosclerosis. 4. Diverticulosis of the colon. 5. Thickening of the wall of the lower descending colon and upper sigmoid colon, unchanged. This m ay be due to diverticulitis or neoplasm. Microperforation, unchanged. Surrounding mesenteric edema, slightly improved. No drainable abscess. 6. Bilateral pars defects at L5. 7. Otherwise unremarkable study. RPTAT: QQ .Kam Ritter MD, MD Date Time Electronically viewed and signed by .Kam Ritter MD, MD on 12/06/2016 14:37 .R/
--- NOTE | 2016-12-06 15:00 | CONS ---
Date/Time of Note Date/Time of Note DATE: 12/06/16 TIME: 14:59 Consultation Date/Type/Reason Admit Date/Time Nov 30, 2016 at 14:18 24 HR Interval Summary Free Text/Dictation still has abdominal pain Exam/Review of Systems Vital Signs Vitals Vital Signs Date Time Temp Pulse Resp B/P Pulse Ox O2 Delivery O2 Flow Rate FiO2 12/06/16 07:44 98.7 72 16 131/61 96 12/05/16 20:50 Room Air 12/04/16 19:49 21 Intake and Output 12/05/16 12/05/16 12/06/16 15:00 23:00 07:00 Intake Total 660 ml 1220 ml 870 ml Output Total 150 ml 400 ml Balance 660 ml 1070 ml 470 ml Exam Neck: non-tender, supple Respiratory: clear to auscultation, normal air movement Cardiovascular: nl pulses, regular rate and rhythm Gastrointestinal: tender (rt lower quadrant) Musculoskeletal: nl extremities to inspection, nl gait and stance Extremities: normal pulses Results Result Diagram: 12/05/1642412/05/16 0425 Results 24 hrs Laboratory Tests Test 12/06/16 07:00 Urine Bacteria FEW Urine Bilirubin NEGATIVE Urine Clarity CLOUDY H Urine Color LT. YELLOW Urine Epithelial Cells FEW Urine Glucose NEGATIVE Urine Hemoglobin 3+ H Urine Ketones NEGATIVE Urine Leukocyte Esterase NEGATIVE Urine Microscopic RBC >200 Urine Microscopic WBC NONE SEEN Urine Nitrite NEGATIVE Urine Specific Colt 1.010 Urine Total Protein NEGATIVE Urine Urobilinogen 0.2 E.U./dL Urine pH 7.0 Medications Medications Current Medications Ondansetron HCl (Zofran Inj) 4 mg Q6H PRN IV NAUSEA AND/OR VOMITING Last administered on 12/06/16 11:43; Admin Dose 4 MG; Start 11/30/16 at 17:00 Acetaminophen (Tylenol Supp) 650 mg Q6H PRN SC PAIN LEVEL 1-3 OR FEVER Last administered on 12/03/16 05:12; Admin Dose 650 MG; Start 11/30/16 at 17:00 Enoxaparin Sodium 40 mg 40 mg DAILY SC Last administered on 12/05/16 08:36; Admin Dose 40 MG; Start 12/01/16 at 09:00 Piperacillin Sod/ Tazobactam Sod (Zosyn 3.375gm/ 100 ml (Pmx)) 100 ml @ 200 mls /hr Q6 IVPB Last administered on 12/06/16 11:43; Admin Dose 200 MLS/HR; Start 11/30/16 at 18:00 Hydralazine HCl 5 mg 5 mg Q4H PRN IV ELEVATED BLOOD PRESSURE Last administered on 12/05/16 09:53; Admin Dose 5 MG; Start 12/01/16 at 22:00 Dextrose/Sodium Chloride (D5-1/2ns) 1,000 ml @ 80 mls/hr [id number] IV Last administered on 12/05/16 23:59; Admin Dose 80 MLS/HR; Start 12/02/16 at 09:00 Hydromorphone HCl (Dilaudid) 1 mg Q3 PRN IV PAIN Last administered on 14:25; Admin Dose 1 MG; Start 12/02/16 at 10:00 Nitroglycerin (Nitroglycerin 0.1 Mg/Hr) 1 patch DAILY TRANSDERM Last administered on 12/06/16 09:02; Admin Dose 1 PATCH; Start 12/02/16 at 14:30 Zolpidem Tartrate (Ambien) 5 mg HS PRN PO INSOMNIA Last administered on 23:41; Admin Dose 5 MG; Start 12/03/16 at 20:00 Pantoprazole (Protonix Tab) 40 mg BID@06,18 PO Last administered on 12/06/16 06:46; Admin Dose 40 MG; Start 12/04/16 at 18:00 Lorazepam (Ativan) 1 mg Q4 PRN IV AGITATION/ANXIETY Last administered on 03:01; Admin Dose 1 MG; Start 12/04/16 at 17:00 Dutasteride (Avodart) 0.5 mg DAILY PO Last administered on 12/05/16 08:32; Admin Dose 0.5 MG; Start 12/04/16 at 16:30 Lactobacillus Acidoph/Bulgaricus (Floranex) 1 tab TID PO Last administered on 12:07; Admin Dose 1 TAB; Start 12/04/16 at 21:00 Amlodipine Besylate (Norvasc) 5 mg BID PO Last administered on 12/06/16 09:01 ; Admin Dose 5 MG; Start 12/05/16 at 21:00 Metoprolol Tartrate (Lopressor) 100 mg BID PO Last administered on 12/06/16 09 :00; Admin Dose 100 MG; Start 12/05/16 at 21:00 Tamsulosin HCl (Flomax) 0.4 mg BID PO Last administered on 12/05/16 20:53; Admin Dose 0.4 MG; Start 12/05/16 at 21:00 IRWIN COE MD Dec 06, 2016 15:00
[2016-12-06] MEDS ORDERED: HYDROCODONE/APAP (5/325) TAB PO PRN (19:00)
[2016-12-06 20:10] VITALS: BP 168/80; RESP 18
[2016-12-06 21:10] VITALS: BP 152/75
--- NOTE | 2016-12-06 22:42 | PN ---
DATE: 12/06/2016 SUBJECTIVE: The patient seen, still has vague pain in the left lower quadrant. I reviewed the pinky ent's CAT scan which was done today. PHYSICAL EXAMINATION: VITAL SIGNS: Temperature 98.7, pulse 72, respirations 16, blood pressure 121/61, saturation is 96% on room air. GENERAL: The patient is in no acute distress. HEENT: Normocephalic, atraumatic. CARDIOVASCULAR: S1, S2. Regular rate. LUNGS: Clear. ABDOMEN: Soft. Slightly tender to palpation in left lower quadrant, appears to be better. EXTREMITIES: There is no clubbing, cyanosis or edema. LABORATORY DATA: No new labs today. Urine test was done as patient was complaining of hematuria, a nd it did show greater than 200 RBCs and +3 blood consistent with hematuria. Stool occult blood was negative on 12/02. MEDICATIONS: Include: 1. Norvasc 5 mg b.i.d. 2. Lopressor 100 b.i.d. 3. Flomax 0.4 b.i.d. 4. Floranex t.i.d. 5. Protonix 40 mg b.i.d. 6. Ativan 1 mg q.4 p.r.n. IV. 7. Avodart 0.5 daily. 8. Atrovent and Proventil every 6 hours. 9. Ambien 5 at bedtime p.r.n. 10. Nitroglycerin daily to the chest, which we can discontinue it. 11. Dilaudid 1 mg IV q.3 p.r.n. 12. Remains on D5 half normal saline at 80 mL an hour. 13. Hydralazine p.r.n. 14. Lovenox 40 mg subQ daily. 15. Zosyn 3.375 IV q.6. 16. Zofran p.r.n. 17. Tylenol p.r.n. ASSESSMENT AND PLAN: This is an unfortunate 66-year-old male with history of benign prostatic hyper trophy, dyslipidemia, nicotine dependency, presented with recurrent episodes of diverticulitis, fail ed outpatient management. 1. Acute diverticulitis. Continue Zosyn. CT scan of the abdomen and pelvis which was done today o verall did not show significant improvement. It did show thickening of the wall of the lower descen ding colon ____ sigmoid colon unchanged. This may be due to diverticulitis or neoplasm. There is m icroperforation, unchanged. Surrounding mesenteric edema slightly improved. No drainable abscesses . In the meantime, the patient remains on full liquid diet, Zosyn, pain medications. Further recom mendation per surgical team and GI specialist. 2. Hematuria, may be secondary to his benign prostatic hypertrophy and having blood thinners. CAT scan did show nonobstructive nephrolithiasis. May consider urology consultation for possible cystos copy if not done as patient has seen a urologist on an outpatient basis. 3. Continue Protonix for gastrointestinal prophylaxis, Lovenox for deep venous thrombosis prophylax is. 4. Benign prostatic hypertrophy. Remains on Flomax and Avodart. 5. Ambulate as tolerated. 6. Will need to discuss further plan of care regarding treatment plan, possible discharge planning with oral antibiotics and monitoring symptoms. Case discussed with as well at bedside in formerly [facility]. We will follow. Dictated By: OMAR MATUTE/CROW Conf#: [id number] DID#: [id number]
[2016-12-07] MEDS: ALBUTEROL 0.083% (NEB) 2.5 MG/3 ML AMP HHN SCH ×4 (00:59→21:04)
--- NOTE | 2016-12-07 01:21 | PN ---
DATE: 12/06/2016 SUBJECTIVE: Discussed with the patient's , discussed with the staff. The patient with no chest pain or pressure. No palpitation. Has had abdominal pain and received pain medication. Currently abdominal pain has resolved with pain medication. MEDICATIONS: Reviewed. PHYSICAL EXAMINATION: VITAL SIGNS: Temperature 98.2, heart rate of 69, blood pressure of 130 to 160s over 60 to 80s, resp iratory rate of 18, saturating 91%. HEENT: Normocephalic, atraumatic. No acute distress. CARDIOVASCULAR: Regular rate and rhythm. PULMONARY: No wheezes, no rhonchi. GASTROINTESTINAL: Soft. Minimal tenderness to palpation. No rebound, no guarding. EXTREMITIES: No significant lower extremity edema. NEUROLOGIC: Awake and alert. PSYCHIATRIC: Appeared to be calm. DIAGNOSTIC DATA: Abdominopelvic CT shows mild atelectasis, benign bilateral renal cysts, diverticul osis, thickening of the wall of the lower descending colon, upper sigmoid colon unchanged. ASSESSMENT AND PLAN: 1. Atypical chest pain has resolved now. 2. Hypertension, improved with the current medication. 3. Diverticulitis. 4. Hematuria. 5. Abdominal pain. 6. Dyslipidemia. RECOMMENDATIONS: Will continue with the current cardiac care. Beta jose will be continued. ___ _ will be continued. Antibiotic as per internal medicine and GI recommendation. Dictated By: NADIA BAKER MD AV/CROW Conf#: [id number] DID#: [id number] CC: OMAR JANE MD;*EndCC*
[2016-12-07] MEDS: LORAZEPAM 2 MG INJ IV PRN ×2 (02:54→17:28)
[2016-12-07] MEDS: PIPER-TAZO 3.375 GM IV (PMX) 100 ML IVPB SCH ×4 (05:26→17:38)
[2016-12-07] MEDS: PANTOPRAZOLE (EC) 40 MG TAB PO SCH ×2 (05:26→17:38)
--- NOTE | 2016-12-07 05:45 | CONS ---
DATE OF ADMISSION: 11/30/2016 DATE OF CONSULTATION: 12/06/2016 REQUESTING PHYSICIAN: Dr. Samson Dhaliwal Dear Samson: Thank you for asking me to see this patient in urological consultation. HISTORY OF PRESENT ILLNESS: He is a 66-year-old male who was admitted because of abdominal pain and acute diverticulitis and yesterday evening he had gross painful hematuria. He had passed a lot of clots and since then he has been having dysuria, urinary urgency, frequency, and sometimes urgency i ncontinence. The bleeding has gradually subsided, but he still has the urgency and the frequency. The patient on admission had a CT scan of the abdomen and pelvis and that showed acute distal descen ding and sigmoid colon diverticulitis, also it did show a collection of fluid measuring 10 x 14 mm t hat is compatible with a contained microperforation. The patient stated that he has had a history o f urinary tract infections on and off and he was treated for a UTI about 3 months ago. He does see Dr. Kelvin Katz and also after that he had H. pylori infection as well and now he does have the di verticulitis. The patient also mentioned that in 2009 he did have left renal stone that was large a nd Dr. Kelvin Katz sent him to [facility] where he underwent ureteroscopy and laser lithotripsy to rem ove the stone. He did have 3 procedures to be able to clear that stone from his kidney and in fact on the present CT scan, it showed that he still has stones in the left kidney, but they are small st ones. The patient now does urinate every 1 hour and again he does have urgency and urgency incontin ence. He has been taking Flomax and Avodart. SOCIAL HISTORY: He used to smoke and he quit about 4 to 5 years ago and no history of alcohol abuse . ALLERGIES: NO KNOWN DRUG ALLERGIES. PAST MEDICAL HISTORY: In addition to where his present problems, he does have a history of hyperten eran, dyslipidemia, and the history of the kidney stones. FAMILY HISTORY: Mother is alive and father from a stroke in 1966. 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 PHYSICAL EXAMINATION: GENERAL: Reveals a 66-year-old male. VITAL SIGNS: He weighs 68.5 kg. He is 68 inches tall. The temperature is 98.2. Pulse is 69, resp iration 18, blood pressure 168/80. HEAD AND NECK: Unremarkable. ABDOMEN: Tender on the left side and it seems lara on the left side than it is on the right side and there is no flank tenderness. EXTERNAL GENITALIA: The testes are normal, but he does have a multiloculated right hydrocele. EXTREMITIES: Reveal no edema. LABORATORY DATA: His CBC on admission showed a white count of 10.2. Hemoglobin was 13.1, hematocri t 41.3. Today's white count of 5.4, hemoglobin 10.4, hematocrit 33.1. The BUN is 4, creatinine 0.6 7, sodium 145, potassium 3.8, chloride 110, CO2 of 24. The urinalysis on admission showed 3+ occult blood. The UA from today shows more than 200 RBCs. On admission it only showed 0 to 2. A urine c ulture will be ordered. IMPRESSION: Gross hematuria, painful, most likely from a urinary tract infection and the patient be ing a smoker he asked are there any other cause, especially that he is on antibiotic why would he cain ve hematuria now. Other possibilities include a bladder tumor. It could be bleeding from stones, b ut I doubt if he has a stone that he is still feeling that severe burning sensation. If he passed t he stone, he feel better and he should not be having still that frequency. Another possibility is t hat since he has diverticulitis he could have a colovesical fistula and the diverticulitis could hav e ruptured into the bladder and causing him to bleed and have the recurrent infections. RECOMMENDATION: At the present, I will order a urine and C and S to be done. Continue him on the a ntibiotic and observe him. Should he have bleeding again, then we will have to check him for possib le colovesical fistula or also do a cystoscopy to rule out bladder tumor. I will also send urine fo r cytology. Dictated By: HUA BRYAN/CROW Conf#: [id number] DID#: [id number]
[2016-12-07 08:00] VITALS: BP 150/69; PULSE 73; RESP 16
[2016-12-07] MEDS: IPRATROPIUM (NEB) 0.5 MG/2.5 ML AMP HHN SCH ×3 (08:00→21:04)
[2016-12-07] MEDS: AMLODIPINE 5 MG TAB PO SCH ×2 (09:07→21:03)
[2016-12-07] MEDS: DUTASTERIDE 0.5 MG CAP PO SCH (09:07)
[2016-12-07] MEDS: LACTOBACILLUS CHEW TAB PO SCH ×3 (09:07→21:02)
[2016-12-07] MEDS: METOPROLOL 50 MG TAB PO SCH ×2 (09:07→21:03)
[2016-12-07] MEDS: ENOXAPARIN 40 MG/0.4 ML SYG SC SCH (09:13)
[2016-12-07] MEDS: DEXTROSE 5%-0.45% NACL 1,000 ML IV SCH (09:14)
--- NOTE | 2016-12-07 15:39 | PN ---
DATE: 12/07/2016 CARDIOLOGY FOLLOWUP PROGRESS NOTE SUBJECTIVE: Discussed with the staff and discussed with the patient's . The patient has starte d eating solids. He does complain of abdominal pain after eating. No chest pain or pressure. No p alpitation. No diarrhea. MEDICATIONS: Reviewed. PHYSICAL EXAMINATION: VITAL SIGNS: Temperature 98, heart rate of 73, blood pressure 150/69, respiration rate of 18, satur ating 93% to 96%. HEENT: Normocephalic, atraumatic. No acute distress. Pupils equal and round. CARDIOVASCULAR: Regular rate and rhythm, systolic murmur grade 1. PULMONARY: With no wheezes heard. No rhonchi. GASTROINTESTINAL: Soft. No rebound or guarding. Minimally tender to palpation. EXTREMITIES: No significant lower extremity edema. NEUROLOGIC: Awake, alert x3. PSYCHIATRIC: Calm, pleasant. LABORATORY: Sputum culture negative x2 days. ASSESSMENT AND PLAN: 1. Chest pain has resolved now with normal LV systolic function and negative troponin. 2. Hypertension, currently improved on multiple medications. 3. Diverticulitis on antibiotics. 4. Transit hematuria pain has resolved now. 5. Abdominal pain secondary to above. 6. History of dyslipidemia. RECOMMENDATIONS: We will continue with the current cardiac care for now. Beta jose will be cont inued. Antibiotic as per internal medicine and GI recommendations. Dictated By: NADIA NATHAN/CROW Conf#: [id number] DID#: [id number]
[2016-12-07] MEDS: HYDROmorphONE 1 MG/ML SYG IV PRN ×2 (15:50→20:00)
[2016-12-07] MEDS: hydrALAzine 20 MG INJ IV PRN (17:45)
--- NOTE | 2016-12-07 18:39 | PN ---
DATE: 12/07/2016 The patient is seen and feeling better. Diet was advanced to soft diet. Still has vague pain in th e left lower quadrant, but overall feeling better. IV fluids Hep-locked. The patient also is passin g gas and had a bowel movement, so clinically improved. Case discussed extensively with Dr. Jimi Posey, regarding plan of care. I appreciate cardiology and neurology input. This patient also cain d episodes of brief hematuria. Urine studies were ordered. The patient will need likely outpatient cystoscopy to rule out possible colovesicular fistula if he continues to bleed and urine was sent f or cytology. PHYSICAL EXAMINATION: VITAL SIGNS: Temperature is 98, pulse 72, respirations 16, blood pressure 150/69, saturation 93% on room air. GENERAL: No acute distress. HEENT: Normocephalic, atraumatic. CARDIOVASCULAR: S1 and S2, regular rate. LUNGS: Clear. ABDOMEN: Soft, slight tender to palpation in the left lower quadrant. EXTREMITIES: No clubbing, cyanosis, or edema. LABORATORY DATA: No new labs today. Last labs were done on the . MEDICATIONS: Currently: 1. Flomax 0.4 at bedtime. 2. [place] 5/325 q.4h. p.r.n. 3. Norvasc 5 b.i.d. 4. Lopressor 100 b.i.d. 5. Floranex 1 tab t.i.d. 6. Protonix 40 b.i.d. 7. Ativan p.r.n. 8. Avodart 0.5 daily. 9. Breathing treatment as directed q.6 hours. 10. Ambien p.r.n. 11. Dilaudid p.r.n. 12. Hydralazine p.r.n. 13. Lovenox 40 mg subq every day. 14. Zosyn 3.375 IV q.6h. 15. Zofran p.r.n. 16. Tylenol p.r.n. Urine culture is now done yesterday was still negative. ASSESSMENT AND PLAN: This is a 66-year-old male with history of benign prostatic hypertrophy, dysli pidemia, nicotine dependency who presents with recurrent episode of diverticulitis and failed outpat ient management. 1. Acute diverticulitis. Continue Zosyn. Hopefully, we can discharge the patient within a day or 2 with oral Cipro and Flagyl. Continue to monitor symptoms in the future to undergo colonoscopy and resection of the area of the diverticulitis. Monitor symptoms. 2. Hematuria. Follow up urine cytology and urine culture. May need a cystoscopy to rule out possi ble fistula or other pathology that can be done on an outpatient basis pending symptoms. 3. Continue Protonix for gastrointestinal prophylaxis. 4. Hypertension. Remains on beta blockers and calcium channel blockers. Blood pressure better con trolled. 5. Activity as tolerated. This case discussed in detail with family. is at bedside. 6. Benign prostatic hypertrophy. Continue Flomax and Avodart. 7. Continue current diet as clinically is improving. 8. Follow up a.m. labs and discharge planning hopefully tomorrow if okay with surgical team and gas troenterology. We will follow. Dictated By: OMAR MATUTE/CROW Conf#: [id number] DID#: [id number]
--- NOTE | 2016-12-07 20:08 | CONS ---
Date/Time of Note Date/Time of Note DATE: 12/07/16 TIME: 20:05 Assessment/Plan Assessment/Plan Additional Assessment/Plan IMPRESSION: 1. Acute diverticulitis with microperforation and small abscess formation.pain better and tolerating regular diet 2. Hypertension. 3. Benign prostatic hypertrophy. 4. Dyslipidemia. 5. History of nicotine addiction. 6.chest pain,resolved Plan continue antibiotics pain management clear liquid diet repeat ct scan,some improvement,small abscess might be diverticulum itself, discussed with Kam Ritter Consultation Date/Type/Reason Admit Date/Time Nov 30, 2016 at 14:18 24 HR Interval Summary Constitutional: improved Exam/Review of Systems Vital Signs Vitals Vital Signs Date Time Temp Pulse Resp B/P Pulse Ox O2 Delivery O2 Flow Rate FiO2 12/07/16 08:00 98.0 73 16 150/69 93 Room Air 12/04/16 19:49 21 Intake and Output 12/06/16 12/06/16 12/07/16 15:00 23:00 07:00 Intake Total 1160 ml 1200 ml Output Total 1100 ml Balance 1160 ml 100 ml Exam Constitutional: alert, oriented, well developed Psych: nl mood/affect, no complaints Head: atraumatic, normocephalic Eyes: EOMI, PERRL, nl conjunctiva, nl lids, nl sclera ENMT: nl external ears & nose, nl lips & teeth, nl nasal mucosa & septum Neck: non-tender, supple Respiratory: clear to auscultation, normal air movement Cardiovascular: nl pulses, regular rate and rhythm Gastrointestinal: nl liver, spleen, non-tender, soft Musculoskeletal: nl extremities to inspection, nl gait and stance Extremities: normal pulses 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, nl mental status, nl speech, nl strength Skin: nl turgor, No rash or lesions Lymph: nl lymph nodes Results Result Diagram: 12/05/1642412/05/16424 Medications Medications Current Medications Ondansetron HCl (Zofran Inj) 4 mg Q6H PRN IV NAUSEA AND/OR VOMITING Last administered on 12/06/16 11:43; Admin Dose 4 MG; Start 11/30/16 at 17:00 Acetaminophen (Tylenol Supp) 650 mg Q6H PRN [place] PAIN LEVEL 1-3 OR FEVER Last administered on 12/03/16 05:12; Admin Dose 650 MG; Start 11/30/16 at 17:00 Enoxaparin Sodium 40 mg 40 mg DAILY SC Last administered on 12/07/16 09:13; Admin Dose 40 MG; Start 12/01/16 at 09:00 Piperacillin Sod/ Tazobactam Sod (Zosyn 3.375gm/ 100 ml (Pmx)) 100 ml @ 200 mls /hr Q6 IVPB Last administered on 12/07/16 17:38; Admin Dose 200 MLS/HR; Start 11/30/16 at 18:00 Hydralazine HCl (Apresoline) 5 mg Q4H PRN IV ELEVATED BLOOD PRESSURE Last administered on 12/07/16 17:45; Admin Dose 5 MG; Start 12/01/16 at 22:00 Hydromorphone HCl (Dilaudid) 1 mg Q3 PRN IV PAIN Last administered on 20:00; Admin Dose 1 MG; Start 12/02/16 at 10:00 Zolpidem Tartrate (Ambien) 5 mg HS PRN PO INSOMNIA Last administered on 23:41; Admin Dose 5 MG; Start 12/03/16 at 20:00 Pantoprazole (Protonix Tab) 40 mg BID@06,18 PO Last administered on 12/07/16 17:38; Admin Dose 40 MG; Start 12/04/16 at 18:00 Lorazepam (Ativan) 1 mg Q4 PRN IV AGITATION/ANXIETY Last administered on 17:28; Admin Dose 1 MG; Start 12/04/16 at 17:00 Dutasteride (Avodart) 0.5 mg DAILY PO Last administered on 12/07/16 09:07; Admin Dose 0.5 MG; Start 12/04/16 at 16:30 Lactobacillus Acidoph/Bulgaricus (Floranex) 1 tab TID PO Last administered on 12:51; Admin Dose 1 TAB; Start 12/04/16 at 21:00 Amlodipine Besylate (Norvasc) 5 mg BID PO Last administered on 12/07/16 09:07 ; Admin Dose 5 MG; Start 12/05/16 at 21:00 Metoprolol Tartrate (Lopressor) 100 mg BID PO Last administered on 12/07/16 09 :07; Admin Dose 100 MG; Start 12/05/16 at 21:00 Acetaminophen/ Hydrocodone Bitart ([place] (5/325)) 1 tab Q4H PRN PO pain Last administered on 12/07/16 02:51; Admin Dose 1 TAB; Start 12/06/16 at 19:00 Tamsulosin HCl (Flomax) 0.4 mg HS PO Last administered on 12/06/16 20:25; Admin Dose 0.4 MG; Start 12/06/16 at 21:00 IRWIN COE MD Dec 07, 2016 20:08
--- NOTE | 2016-12-07 20:38 | PN ---
Date/Time of Note Date/Time of Note DATE: 12/07/16 TIME: 20:35 Assessment/Plan Lines/Catheters IV Catheter Type (from [facility]): Peripheral IV Colon in Place (from [facility]): No Assessment/Plan Chief Complaint/Hosp Course 1. Acute/subacute microperforated sigmoid diverticulitis. CT without drainable collection. -IV antibiotics -IV fluids -Diet as tolerated -DC planning if other active issues controlled by tomorrow -Recommend continued antibiotics with conservative tx if continues to work and then bring back patient for elective laparoscopic sigmoid colectomy in a few months after outpatient colonoscopy 2. Microcytic anemia -Check B12 & folate -Monitor -Will need outpatient upper and lower scope prior to surgical intervention 3. Hypertension -Nutrition and medication control 4. BPH -Flomax 5. Dyslipidemia -Nutrition and possible medication control 6. Nephrolithiasis and renal cysts -Encourage adequate fluid consumption -Outpatient renal follow-up 7. Retroperitoneal and periaortic lymphadenopathy probably secondary to inflammatory changes above. However need to rule out malignancy. -After acute infection episodes has been treated, patient will benefit from outpatient colonoscopy 8. Bilateral inguinal hernias, asymptomatic -Eventual surgical repair, as needed 9. Chest pain, ? etiology. Improved. 10. Anxiety and Panic Attacks -medical management 11. Hematuria ? kidney stone -fluids -monitor h/h -urology consult Thank you, Problems: Subjective 24 Hr Interval Summary No further hematuria. Condom cath placed. Flatus and bm. No fevers or chills. Shortness of breath and chest pressure again today. No visual or neurologic changes. No nausea or vomiting on diet. No abdominal pain. Anal sharp pains earlier. No dysuria. No joint swelling. No rashes. Exam/Review of Systems Vital Signs Vitals Vital Signs Date Time Temp Pulse Resp B/P Pulse Ox O2 Delivery O2 Flow Rate FiO2 12/07/16 08:00 98.0 73 16 150/69 93 Room Air 12/04/16 19:49 21 Intake and Output 12/06/16 12/06/16 12/07/16 15:00 23:00 07:00 Intake Total 1160 ml 1200 ml Output Total 1100 ml Balance 1160 ml 100 ml Exam Free Text/Dictation Constitutional: alert, oriented, No distress Psych: nl mood/affect, No anxiety, No confusion Head: atraumatic, normocephalic Eyes: EOMI, PERRL, nl conjunctiva, No icteric ENMT: mucosa pink and moist, nl external ears & nose Neck: non-tender, No jvd Respiratory: normal air movement, No congested cough, No labored breathing Cardiovascular: regular rate and rhythm, No edema Gastrointestinal: soft, NT, No distended, No rebound or guarding Musculoskeletal: nl extremities to inspection, nl gait and stance, No joint tenderness Extremities: normal pulses, No calf tenderness, No cyanosis, No edema Neurological: nl mental status, nl speech, nl strength Skin: nl turgor, No diaphoresis, No rash or lesions Lymph: nl lymph nodes Results Result Diagram: 12/05/165 12/05/16 0425 BELA SHINE MD Dec 07, 2016 20:38
[2016-12-07 20:41] VITALS: BP 145/67; RESP 19
[2016-12-07] MEDS: TAMSULOSIN (SR) 0.4 MG CAP PO SCH (21:03)
[2016-12-07] MEDS: ZOLPIDEM 5 MG TAB PO PRN (21:35)
--- NOTE | 2016-12-07 22:28 | PN ---
DATE: 12/07/2016 SUBJECTIVE: Urinary frequency. The patient did have dysuria yesterday and he states that today he has no more dysuria, no more pain with urination, but he is still urinating frequently and that ____ _ still on IV fluids. OBJECTIVE: VITAL SIGNS: His temperature is 98.0, respiration is 16, pulse is 73, blood pressure 150/69. His b lood pressure was even higher earlier. He was having some difficulty breathing and chest pain and t hat is most likely related to his high blood pressure. The patient did use a condom catheter last n ight and he still has it on so he does not have to get up multiple times to the bathroom and he has been voiding through that. The urine culture that was sent yesterday showed no growth after 24 hour s. The urine for cytology is still pending. IMPRESSION: The patient most likely had urinary tract infection and he had gross hematuria that was painful hematuria and that is probably because of the infection; however, the urine culture did not grow anything and that is because he has been already on antibiotic. RECOMMENDATION: To continue the antibiotic and also he should follow up as an outpatient and the ur ine was sent for cytology and he may need in the future a cystoscopy to just make sure that there is no bladder tumor. He does see Dr. Kelvin Katz and he will follow up with him and discuss that wi th him after he is discharged. Dictated By: HUA BRYAN/CROW Conf#: [id number] DID#: [id number]
[2016-12-08] MEDS: PIPER-TAZO 3.375 GM IV (PMX) 100 ML IVPB SCH ×5 (00:09→23:14)
[2016-12-08] MEDS: LORAZEPAM 2 MG INJ IV PRN ×2 (00:14→21:07)
[2016-12-08] MEDS: ALBUTEROL 0.083% (NEB) 2.5 MG/3 ML AMP HHN SCH ×5 (01:58→23:36)
[2016-12-08 05:14] LABS: BASOPHILS % 0.2 % (0.0-2.0); EOSINOPHILS # 0.2 10^3/ul (0.0-0.5); EOSINOPHILS % 3.6 % (0.0-7.0); HEMATOCRIT 35.6 % (42.0-52.0); HEMOGLOBIN 11.2 g/dl (14.0-18.0); LYMPHOCYTES # 1.3 10^3/ul (0.8-2.9); LYMPHOCYTES % 26.7 % (15.0-51.0); MEAN CORPUSCULAR HEMOGLOBIN 22.3 pg (29.0-33.0); MEAN CORPUSCULAR HGB CONC 31.4 g/dl (32.0-37.0); MEAN PLATELET VOLUME 8.5 fl (7.4-10.4); MONOCYTE # 0.4 10^3/ul (0.3-0.9); MONOCYTES % 8.9 % (0.0-11.0); NEUTROPHILS % 60.6 % (39.0-77.0); PLATELET COUNT 332 10^3/UL (140-440); RED BLOOD COUNT 5.02 10^6/ul (4.70-6.10); RED CELL DISTRIBUTION WIDTH 16.6 % (11.5-14.5)
[2016-12-08 05:16] LABS: ALBUMIN 3.7 g/dl (3.3-4.9); CONDITION 1; LH ANALYZER COMMENTS 1
[2016-12-08 05:18] LABS: CREATININE 0.79 mg/dl (0.61-1.24)
[2016-12-08 05:19] LABS: ALBUMIN/GLOBULIN RATIO 1.02; CALCIUM 9.6 mg/dl (8.4-10.2); TOTAL PROTEIN 7.3 g/dl (6.1-8.1)
[2016-12-08] MEDS: PANTOPRAZOLE (EC) 40 MG TAB PO SCH ×2 (05:31→17:49)
[2016-12-08 07:31] VITALS: BP 142/75; RESP 18
[2016-12-08] MEDS: IPRATROPIUM (NEB) 0.5 MG/2.5 ML AMP HHN SCH ×3 (07:42→20:00)
[2016-12-08] MEDS: LACTOBACILLUS CHEW TAB PO SCH ×3 (08:40→21:06)
[2016-12-08] MEDS: DUTASTERIDE 0.5 MG CAP PO SCH (08:40)
[2016-12-08] MEDS: METOPROLOL 50 MG TAB PO SCH ×2 (08:41→21:06)
[2016-12-08] MEDS: AMLODIPINE 5 MG TAB PO SCH ×2 (08:41→21:06)
[2016-12-08] MEDS: ENOXAPARIN 40 MG/0.4 ML SYG SC SCH (08:42)
--- NOTE | 2016-12-08 10:26 | CONS ---
Date/Time of Note Date/Time of Note DATE: 12/08/16 TIME: 10:24 Assessment/Plan Assessment/Plan Additional Assessment/Plan IMPRESSION: 1. Acute diverticulitis with microperforation and small abscess formation.pain better and tolerating regular diet 2. Hypertension. 3. Benign prostatic hypertrophy. 4. Dyslipidemia. 5. History of nicotine addiction. 6.chest pain,resolved 7.hematuria,seen by Dr. Ramsey Plan continue antibiotics pain management clear liquid diet repeat ct scan,some improvement,small abscess might be diverticulum itself, discussed with Kam Ritter Po antibiotics upon discharge for 10 days Consultation Date/Type/Reason Admit Date/Time Nov 30, 2016 at 14:18 24 HR Interval Summary Free Text/Dictation c/o abdominal pain tolerating diet Constitutional: improved Exam/Review of Systems Vital Signs Vitals Vital Signs Date Time Temp Pulse Resp B/P Pulse Ox O2 Delivery O2 Flow Rate FiO2 12/08/16 07:31 98.0 71 18 142/75 92 12/07/16 08:00 Room Air 12/04/16 19:49 21 Intake and Output 12/07/16 12/07/16 12/08/16 15:00 23:00 07:00 Intake Total 100 ml 1220 ml 440 ml Output Total 1200 ml 200 ml Balance 100 ml 20 ml 240 ml Exam Constitutional: alert, oriented, well developed Psych: nl mood/affect, no complaints Head: atraumatic, normocephalic Eyes: EOMI, PERRL, nl conjunctiva, nl lids, nl sclera ENMT: nl external ears & nose, nl lips & teeth, nl nasal mucosa & septum Neck: non-tender, supple Respiratory: clear to auscultation, normal air movement Cardiovascular: nl pulses, regular rate and rhythm Gastrointestinal: nl liver, spleen, non-tender, soft Musculoskeletal: nl extremities to inspection, nl gait and stance Extremities: normal pulses 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-XII 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, nl mental status, nl speech, nl strength Skin: nl turgor, No rash or lesions Lymph: nl lymph nodes Results Result Diagram: 12/08/165 12/08/165 Results 24 hrs Laboratory Tests Test 12/08/16 04:25 Alanine Aminotransferase (ALT/SGPT) 56 Albumin 3.7 Albumin/Globulin Ratio 1.02 Alkaline Phosphatase 108 Anion Gap 14 Aspartate Amino Transf (AST/SGOT) 36 Basophils # 0.0 Basophils % 0.2 Blood Morphology Comment Blood Urea Nitrogen 13 Calcium Level 9.6 Carbon Dioxide Level 26 Chloride Level 107 Creatinine 0.79 Direct Bilirubin 0.00 Eosinophils # 0.2 Eosinophils % 3.6 Globulin 3.60 H Glucose Level 90 Hematocrit 35.6 L Hemoglobin 11.2 L Indirect Bilirubin 0.0 Lymphocytes # 1.3 Lymphocytes % 26.7 Magnesium Level 2.0 Mean Corpuscular Hemoglobin 22.3 L Mean Corpuscular Hemoglobin Concent 31.4 L Mean Corpuscular Volume 71.0 L Mean Platelet Volume 8.5 Monocytes # 0.4 Monocytes % 8.9 Neutrophils # 3.0 Neutrophils % 60.6 Nucleated Red Blood Cells # 0.0 Nucleated Red Blood Cells % 0.0 Phosphorus Level 4.0 Platelet Count 332 # Potassium Level 4.0 Red Blood Count 5.02 Red Cell Distribution Width 16.6 H Sodium Level 143 Total Bilirubin 0.0 L Total Protein 7.3 White Blood Count 5.0 Medications Medications Current Medications Ondansetron HCl (Zofran Inj) 4 mg Q6H PRN IV NAUSEA AND/OR VOMITING Last administered on 12/06/16 11:43; Admin Dose 4 MG; Start 11/30/16 at 17:00 Acetaminophen (Tylenol Supp) 650 mg Q6H PRN [place] PAIN LEVEL 1-3 OR FEVER Last administered on 12/03/16 05:12; Admin Dose 650 MG; Start 11/30/16 at 17:00 Enoxaparin Sodium 40 mg 40 mg DAILY SC Last administered on 12/08/16 08:42; Admin Dose 40 MG; Start 12/01/16 at 09:00 Piperacillin Sod/ Tazobactam Sod (Zosyn 3.375gm/ 100 ml (Pmx)) 100 ml @ 200 mls /hr Q6 IVPB Last administered on 12/08/16 05:30; Admin Dose 200 MLS/HR; Start 11/30/16 at 18:00 Hydralazine HCl (Apresoline) 5 mg Q4H PRN IV ELEVATED BLOOD PRESSURE Last administered on 12/07/16 17:45; Admin Dose 5 MG; Start 12/01/16 at 22:00 Hydromorphone HCl (Dilaudid) 1 mg Q3 PRN IV PAIN Last administered on 20:00; Admin Dose 1 MG; Start 12/02/16 at 10:00 Zolpidem Tartrate (Ambien) 5 mg HS PRN PO INSOMNIA Last administered on 21:35; Admin Dose 5 MG; Start 12/03/16 at 20:00 Pantoprazole (Protonix Tab) 40 mg BID@06,18 PO Last administered on 12/08/16 05:31; Admin Dose 40 MG; Start 12/04/16 at 18:00 Lorazepam (Ativan) 1 mg Q4 PRN IV AGITATION/ANXIETY Last administered on 00:14; Admin Dose 1 MG; Start 12/04/16 at 17:00 Dutasteride (Avodart) 0.5 mg DAILY PO Last administered on 12/08/16 08:40; Admin Dose 0.5 MG; Start 12/04/16 at 16:30 Lactobacillus Acidoph/Bulgaricus (Floranex) 1 tab TID PO Last administered on 08:40; Admin Dose 1 TAB; Start 12/04/16 at 21:00 Amlodipine Besylate (Norvasc) 5 mg BID PO Last administered on 12/08/16 08:41 ; Admin Dose 5 MG; Start 12/05/16 at 21:00 Metoprolol Tartrate (Lopressor) 100 mg BID PO Last administered on 12/08/16 08 :41; Admin Dose 100 MG; Start 12/05/16 at 21:00 Acetaminophen/ Hydrocodone Bitart ([place] (5/325)) 1 tab Q4H PRN PO pain Last administered on 12/07/16 02:51; Admin Dose 1 TAB; Start 12/06/16 at 19:00 Tamsulosin HCl (Flomax) 0.4 mg HS PO Last administered on 12/07/16 21:03; Admin Dose 0.4 MG; Start 12/06/16 at 21:00 IRWIN COE MD Dec 08, 2016 10:26
--- NOTE | 2016-12-08 10:32 | PN ---
DATE: 12/08/2016 CARDIOLOGY FOLLOWUP SUBJECTIVE: Discussed with the patient's daughter and . Discussed with the staff. The patient had episodes of shortness of breath and chest pressure yesterday. It was severe and lasted about a n hour. It is resolved now. His abdominal pain has improved. The patient said also his blood pres sure was elevated last night. MEDICATIONS: As per medication reconciliation, personally reviewed. PHYSICAL EXAMINATION: VITAL SIGNS: Temperature 98, heart rate of 71, blood pressure 142/75, respiration rate of 18, satur ating 92% to 97%. HEENT: Normocephalic, atraumatic. No acute distress. Pupils are equal. CARDIOVASCULAR: Regular rate and rhythm. PULMONARY: With no wheezes, no rhonchi. GASTROINTESTINAL: Soft, mild tenderness to palpation. EXTREMITIES: No significant lower extremity edema. NEUROLOGIC: Awake and alert. PSYCHIATRIC: Calm. LABORATORY: Sodium 140, potassium 4.2, BUN of 13, creatinine 0.79, glucose of 90. ASSESSMENT AND PLAN: 1. Chest pain. negative cardiac enzyme for his repeated chest pain. Rule out myocardial inf arction. If negative, we will do stress test. 2. Hypertension, under fair control with the current regimen. We will continue the beta jose an d amlodipine. 3. Diverticulitis currently on antibiotics. 4. Hematuria, has resolved, now possibly has a urinary infection. Follow up with recommendation s. 5. History of dyslipidemia. RECOMMENDATIONS: We will obtain cardiac enzymes. If negative, will do a stress test tomorrow. Dictated By: NADIA BAKER MD AV/NTS Conf#: [id number] DID#: [id number] CC: OMAR JANE MD;*EndCC*
[2016-12-08 11:04] LABS: CREATINE KINASE < 20 IU/L (23-200)
[2016-12-08 11:14] LABS: CK-MB < 0.22 ng/ml (0.0-2.4); TROPONIN-I < 0.012 ng/ml (0.00-0.12)
[2016-12-08] MEDS: HYDROmorphONE 1 MG/ML SYG IV PRN (14:30)
--- NOTE | 2016-12-08 16:25 | PN ---
DATE: 12/08/2016 SUBJECTIVE: Patient has been chest pain with associated shortness of breath. Dr. Hwang ordered a nuclear stress test, which is in process. The patient currently feeling better. He did receive last n medication earlier for his abdominal pain. PHYSICAL EXAMINATION: VITAL SIGNS: Temperature 98, pulse 71, respirations 18, blood pressure 142/75, saturation 92% on ro om air. GENERAL: the patient is in no acute distress . HEENT: Normocephalic, atraumatic. CARDIOVASCULAR: Positive S1, S2, regular rate and rhythm. LUNGS: Clear. ABDOMEN: Soft. No significant pain today in the left lower quadrant, but he states he just receive d pain medication. EXTREMITIES: No clubbing, cyanosis, or edema. LABORATORY DATA: Today shows a normal white count of 5, hemoglobin 11.2, hematocrit 36, platelet co unt 332, neutrophils 61%, lymphocytes 27%. Chemistry: Sodium 143, potassium 4.0, chloride 107, bic arbonate 26, BUN is 13, creatinine 0.79, glucose of 90. CK is less than 20. Stool occult blood tur katerin out to be negative. Urine culture negative. ASSESSMENT AND PLAN: 1. This is a 66-year-old male with history of BPH, dyslipidemia, nicotine dependency who presented with recurrent episodes of diverticulitis, failed outpatient management. 2. Acute diverticulitis is overall better with antibiotic management. As he is on Zosyn, likely ca n discharge him on Cipro and Flagyl and schedule him for outpatient colonoscopy in a months or so an d then possible elective colon surgery. 3. Brief hematuria, concerning for possible colovesicular fistula. In the meantime, urine culture is negative. May consider a cystoscopy as an outpatient basis. Follow up urine cytology results . 4. Chest pain with family history of coronary artery disease, a nuclear stress test was ordered. C ontinue medical management for now. For blood pressure control, Lovenox for DVT prophylaxis. 5. Overall, tolerating diet well. 6. Continue Protonix for GI prophylaxis. 7. Benign prostatic hypertrophy. Continue Flomax and Avodart. Case discussed with in detail a s well at bedside. We will follow with nuclear stress results. If negative, I believe the patient can be discharged. We will follow. Dictated By: OMAR MATUTE/CROW Conf#: [id number] [facility]#: [id number]
--- NOTE | 2016-12-08 19:37 | PN ---
DATE: 12/08/2016 SUBJECTIVE: Urinary frequency. The patient was having some chest pain and dyspnea earlier today, b ut he is feeling better now. OBJECTIVE: VITAL SIGNS: He is afebrile. Temperature is 98, blood pressure 142/75, pulse is 71, respiration 18 . ABDOMEN: He is tender in the left side of the abdomen. GENITOURINARY: He does have a condom catheter on, and he thinks that today he saw some air bubbles in the tubing of the condom catheter. Whether that is bubbles coming out of his bladder or from the tubing itself, it's questionable. When I talked to the patient before when he had the gross hematu paul, I mentioned to him if he has urinated any air bubbles and he said no, and so today as I talked to him, he mentioned that there are some air bubbles in the tubing, and he thinks it may be coming f rom his bladder. The urine culture did not grow anything in 48 hours, and that could be because he is already on anti biotic. The patient, however, still has urinary frequency like at least once an hour so will keep t he condom catheter on to save him the trip to the bathroom so he could sleep at night without having to get up to urinate. PLAN: If the plan is to discharge him tomorrow, then he could go, and he will need to follow up wit h a cystoscopy in the future to see if there is any sign of colovesical fistula. Dictated By: HUA BRYAN/CROW Conf#: [id number] DID#: [id number]
[2016-12-08 20:33] VITALS: BP 165/83; RESP 18
[2016-12-08] MEDS: TAMSULOSIN (SR) 0.4 MG CAP PO SCH (21:07)
[2016-12-09] MEDS: HYDROmorphONE 1 MG/ML SYG IV PRN ×2 (00:09→11:58)
--- NOTE | 2016-12-09 01:23 | PN ---
Date/Time of Note Date/Time of Note DATE: 12/08/16 TIME: 22:19 Assessment/Plan Lines/Catheters IV Catheter Type (from [facility]): Saline Lock Colon in Place (from [facility]): No Assessment/Plan Chief Complaint/Hosp Course 1. Acute/subacute microperforated sigmoid diverticulitis. CT without drainable collection. -IV antibiotics -IV fluids -Diet as tolerated -Recommend continued antibiotics with conservative tx if continues to work and then bring back patient for elective laparoscopic sigmoid colectomy in a few months after outpatient colonoscopy 2. Microcytic anemia -Check B12 & folate -Monitor -Will need outpatient upper and lower scope prior to surgical intervention 3. Hypertension -Nutrition and medication control 4. BPH -Flomax 5. Dyslipidemia -Nutrition and possible medication control 6. Nephrolithiasis and renal cysts -Encourage adequate fluid consumption -Outpatient renal follow-up 7. Retroperitoneal and periaortic lymphadenopathy probably secondary to inflammatory changes above. However need to rule out malignancy. -After acute infection episodes has been treated, patient will benefit from outpatient colonoscopy 8. Bilateral inguinal hernias, asymptomatic -Eventual surgical repair, as needed 9. Chest pain, ? etiology. Improved. 10. Anxiety and Panic Attacks -medical management 11. Hematuria ? kidney stone -fluids -outpt cystoscopy per urology Thank you, Late entry 12/08 Problems: Subjective 24 Hr Interval Summary No further hematuria. Flatus and bm. No fevers or chills. Min sob. No cp. Nuclear stress test. No visual or neurologic changes. No nausea or vomiting on diet. No abdominal pain. No dysuria. No joint swelling. No rashes. Exam/Review of Systems Vital Signs Vitals Vital Signs Date Time Temp Pulse Resp B/P Pulse Ox O2 Delivery O2 Flow Rate FiO2 12/08/16 20:33 98.1 69 18 165/83 99 12/07/16 08:00 Room Air Intake and Output 12/08/16 12/08/16 12/09/16 15:00 23:00 07:00 Intake Total 1160 ml 200 ml Output Total 400 ml Balance 760 ml 200 ml Results Result Diagram: 12/08/16 0425 12/08/16 0425 BELA SHINE MD Dec 09, 2016 01:23
[2016-12-09] MEDS: PANTOPRAZOLE (EC) 40 MG TAB PO SCH ×2 (05:07→18:14)
[2016-12-09] MEDS: IPRATROPIUM (NEB) 0.5 MG/2.5 ML AMP HHN SCH ×3 (05:47→19:47)
[2016-12-09] MEDS: ALBUTEROL 0.083% (NEB) 2.5 MG/3 ML AMP HHN SCH ×3 (05:47→19:47)
[2016-12-09] MEDS: PIPER-TAZO 3.375 GM IV (PMX) 100 ML IVPB SCH ×2 (05:56→11:56)
[2016-12-09 07:32] VITALS: BP 148/81; RESP 17
[2016-12-09] MEDS ORDERED: REGADENOSON 0.4 MG/5 ML SYG ONE (08:05)
--- NOTE | 2016-12-09 09:14 | RADRPT ---
PROCEDURE: Lexiscan myocardial perfusion study CLINICAL INDICATION: 66 -year-old patient complaining of chest pain. TECHNIQUE: Lexiscan 0.4 mg intravenously separate acquisition gated myocardial perfusion SPECT usi ng Tc 99m Myoview 30.3 mCi intravenously at stress and Tc-99m Myoview, 9.7 mCi intravenously at rest was performed using the rest/stress sequence. Poststress Myoview SPECT images were obtained in the supine position. COMPARISON: No prior studies. FINDINGS: Perfusion images reveal no evidence of perfusion defects. Lexiscan post stress gated SPECT images demonstrate no wall motion abnormalities. IMPRESSION: 1. Normal study with no evidence of perfusion defects or wall motion abnormalities. 2. The left ventricle ejection fraction at stress is 61%. A call report was made to Dr. Hwang at 09:13 a.m. on December 09, 2016 RPTAT: HH .Cindi Galaviz MD, Date Time Electronically viewed and signed by .Cindi Galaviz MD, on 12/09/2016 09:13 .L/
[2016-12-09] MEDS: LACTOBACILLUS CHEW TAB PO SCH ×3 (09:40→21:04)
[2016-12-09] MEDS: AMLODIPINE 5 MG TAB PO SCH ×2 (09:41→21:04)
[2016-12-09] MEDS: METOPROLOL 50 MG TAB PO SCH ×2 (09:41→21:05)
[2016-12-09] MEDS: ENOXAPARIN 40 MG/0.4 ML SYG SC SCH (09:43)
[2016-12-09] MEDS: DUTASTERIDE 0.5 MG CAP PO SCH (09:50)
[2016-12-09 10:42] LABS: CREATINE KINASE 25 IU/L (23-200)
--- NOTE | 2016-12-09 10:48 | PN ---
DATE: 12/09/2016 CARDIOLOGY FOLLOWUP SUBJECTIVE: Discussed with the staff, discussed with Dr. Jane. The patient stated that he had ano ther episode of chest pressure last night. No chest pain or pressure. Abdominal pain has improved. MEDICATIONS: Reviewed. PHYSICAL EXAMINATION: VITAL SIGNS: Temperature 98.3, heart rate of 69, blood pressure 148/81, respiration rate of 17, sat urating 98%. HEENT: Normocephalic, atraumatic. Pupils are equal. CARDIOVASCULAR: Regular rate and rhythm. PULMONARY: With no wheezes anteriorly. No rhonchi. GASTROINTESTINAL: Soft, nontender. No rebound or guarding. EXTREMITIES: No significant edema. NEUROLOGIC: Awake and alert. PSYCHIATRIC: Appeared to be calm. LABORATORY: Troponin was negative yesterday. ASSESSMENT AND PLAN 1. Chest pain syndrome, rule out acute coronary syndrome. 2. Diverticulitis, on antibiotics. 3. Hypertension. 4. Anemia. 5. Lymphadenopathy, follow up with surgery. RECOMMENDATIONS: Lexiscan test will be done today to rule out significant ischemia. We will contin ue the beta jose. Dictated By: NADIA BAKER MD AV/NTS Conf#: [id number] DID#: [id number] CC: OMAR JANE MD;*EndCC*
[2016-12-09 10:52] LABS: CK-MB 0.25 ng/ml (0.0-2.4)
[2016-12-09 10:55] LABS: TROPONIN-I < 0.012 ng/ml (0.00-0.12)
--- NOTE | 2016-12-09 12:25 | TMLRPT ---
DATE: 12/09/2016 LEXISCAN STRESS TEST DESCRIPTION: Lexiscan was performed as per protocol INDICATION: Repeated chest pain. FINDINGS: 1. Based on EKG, normal sinus rhythm with no evidence of ischemia. 2. Heart rate at baseline is 66, blood pressure 156/86. 3. No significant ischemic ST changes seen. 4. No significant arrhythmia is seen. CONCLUSION: Completion of Lexiscan stress test as per protocol. See nuclear medicine results for f inal report. Dictated By: NADIA BAKER MD AV/NTS Conf#: [id number] DID#: [id number] CC: OMAR JANE MD;*EndCC*
--- NOTE | 2016-12-09 13:55 | PN ---
DATE: 12/09/2016 SUBJECTIVE: The patient is seen. Still has vague pain in left lower quadrant. He is concerned. But otherwise, the patient's nuclear stress test was normal. The patient still has episodic chest pain, but most likely noncardiac as the stress test was negative. Case discussed with Dr. Hwang. Blood pressure is still in the 140s to the 160s. PHYSICAL EXAMINATION: VITAL SIGNS: Temperature 98.3, afebrile, pulse 69, respirations 17, blood pressure 148/81, saturation 98%. GENERAL: The patient is in no acute distress. HEENT: Normocephalic, atraumatic. CARDIOVASCULAR: Positive S1 and S2, regular rate and rhythm. LUNGS: Clear. ABDOMEN: Soft, slight tenderness palpation in the left lower quadrant. EXTREMITIES: No clubbing, cyanosis, or edema. LABORATORY DATA: No new labs today. Actually troponin today was done which was negative. Nuclear stress test shows normal study with no evidence of perfusion defects or wall motion abnormality. EF is 61%. MEDICATIONS: 1. Flomax 0.4 at bedtime. 2. [place] p.r.n. 3. Norvasc 5 b.i.d. 4. Lopressor 100 b.i.d. 5. Floranex t.i.d. 6. Ativan 1 mg IV q.4h. p.r.n. 7. Avodart 0.5 daily. 8. Atrovent and Albuterol q.6h. . 9. Ambien p.r.n. 10. Dilaudid p.r.n. 11. Hydralazine p.r.n. 12. Lovenox p.r.n. 13. Zosyn 3.375 IV q.6h. 14. Zofran p.r.n. 15. Tylenol p.r.n. ASSESSMENT AND PLAN: 1. This is a 66-year-old male with history of BPH, dyslipidemia, nicotine dependency, who presented with recurrent episode of diverticulitis, failed outpatient management. 2. Acute diverticulitis. Continue with current antibiotic management. Consider switching to oral Cipro and Flagyl in anticipation for discharge. Monitor pain. Also change IV pain medications to oral medications as it will make the IV medications less frequent. 3. Gross hematuria. Consider for possible colovesical fistula, outpatient possible cystoscopy. 4. Chest pain. Control blood pressure. Continue beta blockers and calcium channel blockers. Increased blood pressure medications. Nuclear stress test is negative. 5. Continue Protonix for gastrointestinal prophylaxis. 6. Anxiety. Ativan p.r.n. DISPOSITION: Hopefully in the a.m. We will discuss with Dr. Horton. Dictated By: OMAR MATUTE/CROW Conf#: [id number] DID#: [id number] MTDD
[2016-12-09] MEDS ORDERED: HYDROmorphONE 1 MG/ML SYG IV PRN (14:00)
[2016-12-09] MEDS ORDERED: LORAZEPAM 1 MG TAB PO PRN (14:00)
[2016-12-09] MEDS: metroNIDAZOLE 500 MG TAB PO SCH ×2 (18:14→21:19)
[2016-12-09] MEDS: CIPROFLOXACIN 500 MG TAB PO SCH (18:14)
[2016-12-09 20:05] VITALS: BP 157/75; RESP 18
[2016-12-09] MEDS: TAMSULOSIN (SR) 0.4 MG CAP PO SCH (21:04)
--- NOTE | 2016-12-09 21:44 | PN ---
Date/Time of Note Date/Time of Note DATE: 12/09/16 TIME: 21:42 Assessment/Plan Lines/Catheters IV Catheter Type (from Nrs): Saline Lock Colon in Place (from Nrs): No Assessment/Plan Assessment/Plan [facility] Progress Note Date of Service: 12/09/16 Today's Impression & Plan: Overall doing well without major issues. Abd appears benign. No indication for operative intervention. With above assessment, I've recommended the following for today: 1. Cont current management 2. Advance diet to high fiber 3. Transition to oral antimicrobials 4. Colonoscopy as an outpatient 5. F/u with Dr. Posey Thank you again for your great care of this very pleasant patient and wonderful family. If there are any questions, please feel free to call me at [phone]. TOTAL VISIT TIME: 20 minutes of which more than half was spent in [id number] discussion with the patient, possibly including family, as well as coordination of care between multiple physicians and providers. Disclaimer: Inadvertent spelling or grammatical errors are likely due to EHR/ dictation software use and do not reflect on the overall quality of patient care. Subjective: No major events or complaints; no abd pain and under control with medications; no n/v/d; no sob or cp; + flatus; + BM and normal; + activity Objective: Vitals: See below Exam: GENERAL: On exam, the patient was laying in bed and appeared to be comfortable and in no acute distress. ABDOMEN: Soft, nontender and nondistended. There are no peritoneal signs or guarding. SKIN: Skin appears to be pink and feels warm to touch. NEUROLOGIC: Patient is awake, alert, and follows commands appropriately. Exam/Review of Systems Vital Signs Vitals Vital Signs Date Time Temp Pulse Resp B/P Pulse Ox O2 Delivery O2 Flow Rate FiO2 12/09/16 20:05 98.4 70 18 157/75 97 12/09/16 19:47 21 12/07/16 08:00 Room Air Intake and Output 12/08/16 12/08/16 12/09/16 15:00 23:00 07:00 Intake Total 1160 ml 920 ml Output Total 400 ml 900 ml Balance 760 ml 20 ml Results Result Diagram: 12/08/16 0425 12/08/16 0425 JAKE DILLARD M.D. Dec 09, 2016 21:44
--- NOTE | 2016-12-09 21:49 | PN ---
DATE: 12/09/2016 SUBJECTIVE: Urinary frequency and 1 episode of gross hematuria. The patient feeling better. His u rinary frequency has decreased, and the dysuria that he has has subsided, yet he is still urinating about once every hour, and he still has the condom catheter on to avoid having to make multiple trip s, especially at night, to the bathroom to urinate. OBJECTIVE: VITAL SIGNS: His temperature is 98.3, pulse is 69, respirations 17, blood pressure 148/81. ABDOMEN: A little tender over the left lower quadrant. LABORATORY DATA: His CBC shows a white count of 5.0, hemoglobin 11.2. BUN is 13, creatinine 0.79. The patient did have a Lexiscan, and it showed no wall motion abnormalities, normal study with no ev idence of perfusion defect. The left ventricle ejection fraction at stress is 61%. From a urological standpoint, he is voiding well. The frequency is less. The dysuria has subsided. If he is planned to be discharged tomorrow, that would be fine, and he could follow up as an outpa tient. Dictated By: HUA BRYAN/CROW Conf#: [id number] DID#: [id number]
[2016-12-10] MEDS: ALBUTEROL 0.083% (NEB) 2.5 MG/3 ML AMP HHN SCH ×3 (02:00→13:18)
[2016-12-10] MEDS: PANTOPRAZOLE (EC) 40 MG TAB PO SCH (06:29)
[2016-12-10] MEDS: metroNIDAZOLE 500 MG TAB PO SCH ×2 (06:29→14:13)
[2016-12-10] MEDS: CIPROFLOXACIN 500 MG TAB PO SCH (06:29)
--- NOTE | 2016-12-10 07:01 | CONS ---
Date/Time of Note Date/Time of Note DATE: 12/10/16 TIME: 07:00 Assessment/Plan Assessment/Plan Additional Assessment/Plan Additional Assessment/Plan IMPRESSION: 1. Acute diverticulitis with microperforation and small abscess formation.pain better and tolerating regular diet 2. Hypertension. 3. Benign prostatic hypertrophy. 4. Dyslipidemia. 5. History of nicotine addiction. 6.chest pain,resolved 7.hematuria,seen by Dr. Ramsey Plan continue antibiotics pain management high fiber diet repeat ct scan,some improvement,small abscess might be diverticulum itself, discussed with Kam Ritter Po antibiotics upon discharge for 10 days colonoscopy and EGD as OP Consultation Date/Type/Reason Admit Date/Time Nov 30, 2016 at 14:18 24 HR Interval Summary Constitutional: improved Exam/Review of Systems Vital Signs Vitals Vital Signs Date Time Temp Pulse Resp B/P Pulse Ox O2 Delivery O2 Flow Rate FiO2 12/09/16 20:05 98.4 70 18 157/75 97 12/09/16 19:47 21 12/07/16 08:00 Room Air Intake and Output 12/09/16 12/09/16 12/10/16 15:00 23:00 07:00 Intake Total 1170 ml 570 ml Output Total 1000 ml 600 ml Balance 170 ml -30 ml Exam Constitutional: alert, oriented, well developed Psych: nl mood/affect, no complaints Head: atraumatic, normocephalic Eyes: EOMI, PERRL, nl conjunctiva, nl lids, nl sclera ENMT: nl external ears & nose, nl lips & teeth, nl nasal mucosa & septum Neck: non-tender, supple Respiratory: clear to auscultation, normal air movement Cardiovascular: nl pulses, regular rate and rhythm Gastrointestinal: nl liver, spleen, non-tender, soft Musculoskeletal: nl extremities to inspection, nl gait and stance Extremities: normal pulses Neurological: PIERCING SPECIALIST II-XII intact, nl mental status, nl speech, nl strength Skin: nl turgor, No rash or lesions Lymph: nl lymph nodes Results Result Diagram: 12/08/1642412/08/16424 Results 24 hrs Laboratory Tests Test 12/09/16 09:38 Creatine Kinase 25 Creatine Kinase Index 1.0 Creatinine Kinase MB (Mass) 0.25 Troponin I < 0.012 Medications Medications Current Medications Ondansetron HCl (Zofran Inj) 4 mg Q6H PRN IV NAUSEA AND/OR VOMITING Last administered on 12/06/16 11:43; Admin Dose 4 MG; Start 11/30/16 at 17:00 Acetaminophen (Tylenol Supp) 650 mg Q6H PRN [place] PAIN LEVEL 1-3 OR FEVER Last administered on 12/03/16 05:12; Admin Dose 650 MG; Start 11/30/16 at 17:00 Enoxaparin Sodium (Lovenox) 40 mg DAILY SC Last administered on 12/09/16 09:43 ; Admin Dose 40 MG; Start 12/01/16 at 09:00 Hydralazine HCl (Apresoline) 5 mg Q4H PRN IV ELEVATED BLOOD PRESSURE Last administered on 12/07/16 17:45; Admin Dose 5 MG; Start 12/01/16 at 22:00 Zolpidem Tartrate (Ambien) 5 mg HS PRN PO INSOMNIA Last administered on 21:35; Admin Dose 5 MG; Start 12/03/16 at 20:00 Pantoprazole (Protonix Tab) 40 mg BID@06,18 PO Last administered on 12/10/16 06:29; Admin Dose 40 MG; Start 12/04/16 at 18:00 Dutasteride (Avodart) 0.5 mg DAILY PO Last administered on 12/09/16 09:50; Admin Dose 0.5 MG; Start 12/04/16 at 16:30 Lactobacillus Acidoph/Bulgaricus (Floranex) 1 tab TID PO Last administered on 21:04; Admin Dose 1 TAB; Start 12/04/16 at 21:00 Amlodipine Besylate (Norvasc) 5 mg BID PO Last administered on 12/09/16 21:04 ; Admin Dose 5 MG; Start 12/05/16 at 21:00 Metoprolol Tartrate (Lopressor) 100 mg BID PO Last administered on 12/09/16 21 :05; Admin Dose 100 MG; Start 12/05/16 at 21:00 Acetaminophen/ Hydrocodone Bitart ([place] (5/325)) 1 tab Q4H PRN PO pain Last administered on 12/07/16 02:51; Admin Dose 1 TAB; Start 12/06/16 at 19:00 Tamsulosin HCl (Flomax) 0.4 mg HS PO Last administered on 12/09/16 21:04; Admin Dose 0.4 MG; Start 12/06/16 at 21:00 Hydromorphone HCl (Dilaudid) 1 mg Q8H PRN IV PAIN; Start 12/09/16 at 14:00 Lorazepam (Ativan) 1 mg Q8H PRN PO ANXIETY Last administered on 12/09/16 23:45 ; Admin Dose 1 MG; Start 12/09/16 at 14:00 Losartan Potassium (Cozaar) 50 mg DAILY PO ; Start 12/10/16 at 09:00 Ciprofloxacin (Cipro) 500 mg BID@06,18 PO Last administered on 12/10/16 06:29 ; Admin Dose 500 MG; Start 12/09/16 at 18:00 Metronidazole (Flagyl) 500 mg Q8 PO Last administered on 12/10/16 06:29; Admin Dose 500 MG; Start 12/09/16 at 14:00 IRWIN COE MD Dec 10, 2016 07:01
[2016-12-10] MEDS: IPRATROPIUM (NEB) 0.5 MG/2.5 ML AMP HHN SCH ×2 (07:37→13:18)
[2016-12-10 07:45] VITALS: BP 162/75; RESP 18
[2016-12-10] MEDS: ENOXAPARIN 40 MG/0.4 ML SYG SC SCH (08:23)
[2016-12-10] MEDS: METOPROLOL 50 MG TAB PO SCH (08:23)
[2016-12-10] MEDS: LACTOBACILLUS CHEW TAB PO SCH ×2 (08:23→13:13)
[2016-12-10] MEDS: DUTASTERIDE 0.5 MG CAP PO SCH (08:24)
[2016-12-10] MEDS: AMLODIPINE 5 MG TAB PO SCH (08:24)
[2016-12-10] MEDS ORDERED: LOSARTAN 50 MG TAB PO SCH (09:00)
[2016-12-10 09:46] VITALS: BP 157/74; PULSE 62; RESP 16
[2016-12-10 13:00] VITALS: BP 137/74; PULSE 60; RESP 18
[2016-12-10] MEDS ORDERED: IPRATROPIUM (NEB) 0.5 MG/2.5 ML AMP NEB PRN (13:30)
[2016-12-10] MEDS ORDERED: NITROGLYCERIN (SL) 0.4 MG TAB SL PRN (13:30)
[2016-12-10] MEDS ORDERED: NITROGLYCERIN (SL) 0.4 MG TAB SL ONE (13:30)
[2016-12-10] MEDS ORDERED: ALBUTEROL 0.5% (NEB) 2.5 MG/0.5 ML AMP NEB PRN (13:30)
--- NOTE | 2016-12-10 14:04 | RADRPT ---
PROCEDURE: XR Chest. CLINICAL INDICATION: Shortness of breath TECHNIQUE: AP view of the chest was obtained. COMPARISON: 12/04/2016 FINDINGS: The cardiomediastinal silhouette is within normal limits. The lungs are clear. No pleural effusion or pneumothorax is evident. IMPRESSION: No evidence of active cardiopulmonary disease. RPTAT: VV .David Webber MD, MD Date Time Electronically viewed and signed by .David Webber MD, on 12/10/2016 14:04 .O/
--- NOTE | 2016-12-10 15:20 | PDOCDIS ---
Discharge Instructions CONDITION Patient Condition: Stable HOME CARE INSTRUCTIONS: Special Diet: soft ACTIVITY: Activity Restrictions: Slowly Increase Activity FOLLOW UP/APPOINTMENTS Appointments follow up with PMD, and Dr. Horton within 1-2 weeks, see attached prescriptions OMAR JANE MD Dec 10, 2016 15:20
[2016-12-10] MEDS ORDERED: LORA1TAB PO (15:22)
[2016-12-10] MEDS ORDERED: ZOLP5TAB PO (15:22)
[2016-12-10] MEDS ORDERED: CIPR500T4 PO (15:22)
[2016-12-10] MEDS ORDERED: METO-429 PO (15:22)
[2016-12-10] MEDS ORDERED: AMLO-145 PO (15:22)
[2016-12-10] MEDS ORDERED: METR500T PO (15:22)
[2016-12-10] MEDS ORDERED: LOSA50TA2 PO (15:22)
[2016-12-10] MEDS ORDERED: HYDR-906 PO (15:36)
--- NOTE | 2016-12-10 22:15 | PN ---
Date/Time of Note Date/Time of Note DATE: 12/10/16 TIME: 14:13 Assessment/Plan Lines/Catheters IV Catheter Type (from Nrs): Saline Lock Colon in Place (from [facility]): No Assessment/Plan Assessment/Plan [facility] Progress Note (covering for Dr. Posey) Date of Service: 12/10/16 Today's Impression & Plan: Overall doing well without major issues. Abd appears benign. No indication for operative intervention. There does not appear to be major cardiac or pulmonary issues (? symptoms more related to antimicrobials and GI upset). With above assessment, I've recommended the following for today: 1. Consider d/c antimicrobials (afebrile, nl WBC, on treatment for many days, feels good overall) 2. Consider d/c home 3. Colonoscopy as an outpatient 4. F/u with Dr. Posey Thank you again for your great care of this very pleasant patient and wonderful family. If there are any questions, please feel free to call me at [phone]. TOTAL VISIT TIME: 20 minutes of which more than half was spent in [id number] discussion with the patient, possibly including family, as well as coordination of care between multiple physicians and providers. Disclaimer: Inadvertent spelling or grammatical errors are likely due to EHR/ dictation software use and do not reflect on the overall quality of patient care. Subjective: No major events or complaints; sob earlier today, but w/u negative; no abd pain and under control with medications; no n/v/d; no sob or cp; + flatus; + BM and normal; + activity Objective: Vitals: See below Exam: GENERAL: On exam, the patient was laying in bed and appeared to be comfortable and in no acute distress. ABDOMEN: Soft, nontender and nondistended. There are no peritoneal signs or guarding. SKIN: Skin appears to be pink and feels warm to touch. NEUROLOGIC: Patient is awake, alert, and follows commands appropriately. Exam/Review of Systems Vital Signs Vitals Vital Signs Date Time Temp Pulse Resp B/P Pulse Ox O2 Delivery O2 Flow Rate FiO2 12/10/16 13:00 60 18 137/74 92 Room Air 12/10/16 07:45 97.9 12/09/16 19:47 21 Intake and Output 12/09/16 12/09/16 12/10/16 15:00 23:00 07:00 Intake Total 1170 ml 570 ml Output Total 1000 ml 600 ml Balance 170 ml -30 ml Results Result Diagram: 12/08/16 0425 12/08/16 0425 JAKE DILLARD M.D. Dec 10, 2016 22:15
--- NOTE | 2016-12-11 09:31 | DS ---
DATE OF ADMISSION: 11/30/2016 DATE OF DISCHARGE: 12/10/2016 REASON FOR ADMISSION: Acute diverticulitis, recurrent, with possible microperforation. HOSPITAL COURSE: The patient is a 66-year-old male with a history of BPH, hypertension, d yslipidemia, who recently was diagnosed with diverticulitis back in October and treated conservativ rosana with oral medications which included Cipro and Flagyl. The patient was to undergo a colonoscopy with Dr. Max. The patient received a colon prep with magnesium citrate, or GoLYTELY. Unfortun ately after that he was experiencing excruciating pain. The procedure was deferred and he was recom mended to be admitted to the hospital secondary to severe pain. Upon admission the patient underwent a CT scan of the abdomen and pelvis in the emergency department which showed acute distal, descendi ng and sigmoid diverticulitis with a 10 x 14-mm lateral wall fluid collection, compatible with a con tained microperforation. No other evidence of free air, abscess or bowel obstruction. There is soo ateral nonobstructing nephrolithiasis and simple renal cortical cysts. The patient initially was ke pt n.p.o., received IV fluids, and was started on Zosyn IV for diverticulitis. Multiple physicians were consulted, including Dr. Jimi Posey, the surgical garment inspector, Dr. Breezy Horton, the GI spe cialist, and Dr. Babak Hwang, the vp revenue cycle. During the patient's hospitalization the patient h as been experiencing ongoing chest pain, which may be secondary to anxiety, but the symptoms were qu ite concerning, so we proceeded with a nuclear stress test, which was done on 12/09/2016 and shows a normal study, with no evidence of perfusion defects or wall motion abnormalities. The left ventric le ejection fraction is 61%. Slowly will advance his diet. He required IV pain medication frequent ly, as this was a prolonged stay for ongoing, very slow recovery. The patient in the last few days has overall improved. Again today he had episodic chest pain. I ordered a troponin, which was nega tive. Chest x-ray was negative. I gave him nitroglycerin. In addition, the patient's blood pressu re medication was titrated up. Stool occult blood was negative. Stool for C. diff was negative. U rine culture was negative. In addition, the patient was seen by Dr. Junior, as the patient had an episode of hematuria. We were concerned the patient may have a colovesicular fistula. His UA showed greater than 200 RBCs, but currently the patient is doing well. The patient will be followed as an outpatient. The patient will be discharged today. His diet was advanced successfully and the pinky ent is feeling better. Currently he is chest pain free at the moment. Temperature 97.9, pulse 60, respirations 18, blood pressure 137/74, saturation of 92%. DISCHARGE MEDICATIONS: The patient will be discharged with the following medications: 1. Ciprofloxacin 500 b.i.d. for 7 days. 2. Flagyl 500 mg t.i.d. for 7 days. 3. Ativan 1 mg q.12 p.r.n. for anxiety. 4. Ambien 10 mg at bedtime p.r.n. for insomnia. 5. Amlodipine 5 mg b.i.d. 6. Losartan 10 mg daily. 7. Metoprolol tartrate 100 mg b.i.d. 8. Omeprazole 20 mg daily. 9. Flomax 0.4 at bedtime. 10. Avodart 0.5 mg daily. 11. [place] 5/325 q.6 p.r.n. for moderate pain. FINAL DIAGNOSES: 1. Acute diverticulitis, with early microperforation. 2. Abdominal pain. 3. Hematuria. Rule out colovesicular fistula. 4. Chest pain. Rule out acute coronary syndrome. Stress test negative. 5. Hypertension. Controlled now with 3 medications. 6. Benign prostatic hypertrophy. 7. Anxiety disorder. 8. Insomnia. 9. Anemia. 10. Dyslipidemia. 11. Nonobstructive nephrolithiasis. 12. Nicotine dependency. The patient was advised to stop smoking. DISCHARGE INSTRUCTIONS: The patient was instructed to follow with his doctor, the GI specialist, an d his primary medical doctor. If there is any change in his condition he is to call 911 or go to the medical center emergency department. The plan in the future is to proceed with a colonoscopy, plus or mi nus surgery. Possible gastroesophageal reflux disease. Again, the patient was discharged today. The case discussed with him and with the patient's , who is currently at the bedside. I explain ed to him the plan of care. CONDITION ON DISCHARGE: The patient will be discharged in fair condition. Dictated By: OMAR MATUTE/CROW Conf#: [id number] DID#: [id number]
--- NOTE | 2016-12-11 12:54 | PN ---
DATE: 12/10/2016 CARDIOLOGY FOLLOWUP PROGRESS NOTE SUBJECTIVE: Discussed with Dr. Jane, discussed with the patient's . Discussed with the staff. Patient had another episode of chest pain or pressure. Anteriorly, has resolved now. No chest pa in with activity. MEDICATIONS: Reviewed. PHYSICAL EXAMINATION: VITAL SIGNS: Temperature 97.9, heart rate of 60, blood pressure 137/74, respiratory rate of 18, sat urating 93%. HEENT: Normocephalic, atraumatic. No acute distress. Pupils are equal. CARDIOVASCULAR: Regular rate and rhythm. Systolic murmur . PULMONARY: With no wheezes, no rhonchi. GASTROINTESTINAL: Soft, nontender. No rebound or guarding. EXTREMITIES: No significant lower extremity edema. NEUROLOGIC: Awake and alert. PSYCHIATRIC: Appears to be anxious, but otherwise pleasant. LABORATORY: Troponins have been negative again this afternoon and less than 0.012. Lexiscan stress test done yesterday shows ejection fraction of 61% with normal perfusion, ____ normal study. ASSESSMENT AND PLAN: 1. Repeated chest pain with negative ischemic workup including negative multiple troponin and negat doc Lexiscan, probably related to his anxiety versus GI related. 2. Hypertension, currently better controlled on the current regimen. 3. ____ on antibiotics. 4. Anemia. Currently stable. 5. Lymphadenopathy. Follow up with the surgeon. RECOMMENDATIONS: We will continue the beta jose and amlodipine. Discharge planning is in proces s. The patient was advised to call my office for outpatient followup. Dictated By: NADIA BAKER MD AV/NTS Conf#: [id number] DID#: [id number] CC: OMAR JANE MD;*EndCC*
--- NOTE | 2016-12-12 14:02 | RADRPT ---
Vent Rate: 59 bpm RR Interval: 0 msec ND Interval: 200 msec QRS Duration: 104 msec QT Interval: 470 msec QTC Interval: 465 msec P-R-T [place]: 49 - -5 - 43 degrees Sinus bradycardia Possible Left atrial enlargement Borderline ECG Electronically Signed By: Óscar Liu [id number]
== END 2016-12-10 16:30 | disposition home or self-care (01) | DRG 392 ==
LOC: E/R 11:40 → PP2 14:18 → UNDODISIN 12-02 11:15
PROVIDERS: ADMIT Internal Medicine; ATTEND Internal Medicine
PROC: C23GYZZ Positron Emission Tomographic (PET) Imaging of Myocardium using Other Radionuclide (ICD-10-PCS; principal; 2016-12-08)
DX: K57.20 Diverticulitis of large intestine with perforation and abscess without bleeding (principal); I10 Essential (primary) hypertension; N20.0 Calculus of kidney; N28.1 Cyst of kidney, acquired; D50.9 Iron deficiency anemia, unspecified; F17.200 Nicotine dependence, unspecified, uncomplicated; N40.0 Benign prostatic hyperplasia without lower urinary tract symptoms; E78.5 Hyperlipidemia, unspecified; E16.2 Hypoglycemia, unspecified; R59.0 Localized enlarged lymph nodes; K40.20 Bilateral inguinal hernia, without obstruction or gangrene, not specified as recurrent; R31.9 Hematuria, unspecified; F41.9 Anxiety disorder, unspecified; G47.00 Insomnia, unspecified; R35.0 Frequency of micturition; R07.89 Other chest pain
CPT/HCPCS: 36415; 71010; 74177; 78452; 80048; 80053; 80061; 81001; 81003; 82270; 82378; 82550; 82553; 82607; 82746; 82962; 83036; 83540; 83605; 83690; 83735; 84100; 84443; 84484; 85025; 85045; 85610; 85730; 87040; 87045; 87075; 87086; 93005; 93017; 93306; 94640; 94664; 96374; 96375; A9500; A9505; C9113; J0360; J1170; J1650; J2060; J2405; J2543; J2785; J3475; J3480; J7030; J7042; Q9967

== ENCOUNTER 2017-04-04 11:00 | Inpatient (IN) | payer OTHER, MEDICARE ==
[~2017-04-04] VITALS: Ht 152.4 cm; Wt 34.0 kg
[~2017-04-04 11:00] MED LIST: AMLO-145 PO; CIPR500T4 PO; DUTA0.5C PO; HYDR-906 PO; LORA1TAB PO; LOSA50TA2 PO; METO-429 PO; METR500T PO; OMEP20CA16 PO; TAMS-14 PO; ZOLP5TAB PO
[2017-04-04 11:13] VITALS: Ht 152.4 cm; Wt 34.0 kg
[2017-04-04] MEDS ORDERED: LABETALOL HCL 20MG INJ IV ONE (15:30)
[2017-04-04] MEDS ORDERED: DUTA0.5C PO (16:13)
[2017-04-04] MEDS ORDERED: OMEP20CA16 PO (16:13)
[2017-04-04] MEDS ORDERED: TAMS0.4C2 PO (16:14)
[2017-04-04] MEDS ORDERED: ZOLP10TA5 PO (16:14)
[2017-04-04] MEDS ORDERED: METR500T14 PO (16:15)
[2017-04-04] MEDS ORDERED: DICY10CA60 PO (16:15)
[2017-04-04] MEDS ORDERED: HYDR-906 PO (16:16)
[2017-04-04] MEDS ORDERED: ASPI-664 PO (16:16)
[2017-04-04] MEDS ORDERED: CIPR500T4 PO (16:16)
--- NOTE | 2017-04-04 16:21 | RADRPT ---
PROCEDURE: XR Chest. CLINICAL INDICATION: Chest pain. TECHNIQUE: Single AP portable chest COMPARISON: 12/10/2016 Chest x-ray FINDINGS: The cardiomediastinal silhouette is within normal limits of size. Elevation of the right hemidiaphra gm. Atherosclerotic calcification of the aorta. The lungs are clear without pleural effusion or fo bia consolidation. No pneumothorax. The osseous structures and soft tissues are unremarkable. IMPRESSION: 1. No evidence for active cardiopulmonary disease. RPTAT:AAJJ Physician Asuncion Date Time Electronically viewed and signed by Physician Asuncion on 04/04/2017 16:20 DYLAN/
[2017-04-04 16:23] LABS: ADD SCAN DIFF NO
[2017-04-04 16:26] LABS: BASOPHILS % 0.3 % (0.0-2.0); EOSINOPHILS # 0.1 10^3/ul (0.0-0.5); EOSINOPHILS % 0.8 % (0.0-7.0); HEMATOCRIT 46.2 % (42.0-52.0); LYMPHOCYTES # 1.7 10^3/ul (0.8-2.9); LYMPHOCYTES % 14.5 % (15.0-51.0); MEAN CORPUSCULAR HEMOGLOBIN 21.6 pg (29.0-33.0); MEAN CORPUSCULAR HGB CONC 30.3 g/dl (32.0-37.0); MEAN CORPUSCULAR VOLUME 71.3 fl (82.0-101.0); MONOCYTE # 0.9 10^3/ul (0.3-0.9); MONOCYTES % 7.5 % (0.0-11.0); NEUTROPHIL # 8.8 10^3/ul (1.6-7.5); NEUTROPHILS % 76.6 % (39.0-77.0); PLATELET COUNT 273 10^3/UL (140-415); RED BLOOD COUNT 6.48 10^6/ul (4.70-6.10); RED CELL DISTRIBUTION WIDTH 17.7 % (11.5-14.5); WHITE BLOOD COUNT 11.5 10^3/ul (4.8-10.8)
[2017-04-04 16:43] LABS: INR 1.07; PROTIME 13.9 Sec (12.2-14.2); PT RATIO 1.1
[2017-04-04 16:44] LABS: PARTIAL THROMBOPLASTIN TIME 30.5 Sec (25.0-35.0)
[2017-04-04 16:51] LABS: ANION GAP 14 (8-16); BLOOD UREA NITROGEN 16 mg/dl (7-20); CALCIUM 9.7 mg/dl (8.4-10.2); CARBON DIOXIDE 23 mmol/L (21-31); CHLORIDE 106 mmol/L (97-110); CREATININE 0.81 mg/dl (0.61-1.24); GLUCOSE 105 mg/dl (70-220); POTASSIUM 4.2 mmol/L (3.5-5.1); SODIUM 139 mmol/L (135-144)
[2017-04-04 16:53] LABS: ALBUMIN 4.3 g/dl (3.3-4.9); BILIRUBIN,INDIRECT 0.1 mg/dl (0-1.1); BILIRUBIN,TOTAL 0.1 mg/dl (0.2-1.3); TOTAL PROTEIN 8.1 g/dl (6.1-8.1)
[2017-04-04] MEDS ORDERED: morphine 2 MG INJ IV ONE (17:00)
[2017-04-04 17:04] LABS: B-TYPE NATRIURETIC PEPTIDE 232 PG/ML (0-125)
[2017-04-04 17:19] LABS: CK-MB 0.72 ng/ml (0.0-2.4); CREATINE KINASE 53 IU/L (23-200); TROPONIN-I < 0.012 ng/ml (0.00-0.12)
[2017-04-04 17:20] LABS: TROPONIN-I < 0.012 ng/ml (0.00-0.12)
--- NOTE | 2017-04-04 18:40 | RADRPT ---
PROCEDURE: CT Abdomen and Pelvis without contrast. CLINICAL INDICATION: Pain. TECHNIQUE: CT scan of the abdomen and pelvis was performed on a multidetector slice CT scanner. No intravenous contrast material was utilized. Sagittal and coronal reformatted images were obtained fr om the axial source images. Images were reviewed on a high-resolution PACS workstation. Exam CTDlvol = 9.8 mGy and DLP = 553 Gy-cm. One of the following 3 dose reduction techniques were used: Automate d exposure control; adjustment of the mA and/or kV according to patient size; or use of iterative re construction technique. COMPARISON: 12/06/1926. FINDINGS: There is redemonstrated left and proximal to mid sigmoid colon diverticulosis. There is focal wall thickening and surrounding infiltration with small foci of extraluminal gas involving the mid to dis dutch left colon, consistent with acute diverticulitis with micro perforations. There is a small amou nt of free fluid. There is no obstruction or ileus. The appendix is visualized and is normal in a ppearance. There is no evidence for appendicitis.. The liver is overall normal in size. No intrahepatic lesions are identified. The gallbladder is norm al in appearance. There is no definite biliary ductal dilation. Pancreas is normal in appearance. Th e spleen is unremarkable.. There are no adrenal masses. The aorta is normal caliber. Atheroscleroti c vascular calcifications are present.. There are bilateral renal cyst, largest in the lower pole of the right kidney 2.2 centers diameter. There are bilateral small nonobstructing renal calcifications. Kidneys are otherwise normal in agustín earance without hydronephrosis, mass or obstructing calculus.. Ureters are of normal caliber and wit hout evidence for an obstructing calculus. The urinary bladder is normal in appearance.. Prostate g land is normal size. Limited evaluation of the lung bases is unremarkable. There are bilateral L5 spondylitic defects. IMPRESSION: 1. Recurrent mid to distal left sigmoid colon diverticulitis with surrounding infiltration and a sma ll amount of free extraluminal gas compatible with microperforation. 2. Small amount of pelvic free fluid. 3. No bowel obstruction or ileus. 4. No evidence for 5. Bilateral renal cyst. Bilateral nonobstructing renal calcifications. No obstructive uropathy. 6. Atherosclerotic vascular changes. 7. Bilateral L5 spondylitic defects. RPTAT: HMVK .Tj Morse MD, MD Date Time Electronically viewed and signed by .Tj Morse MD, MD on 04/04/2017 18:40 .K/
[2017-04-04] MEDS ORDERED: CEFTRIAXONE 1 GM/50 ML (PMX) 50 ML IVPB STA (18:54)
[2017-04-04] MEDS ORDERED: SOD CHLORIDE 0.9% 1,000 ML IV ONE ×2 (19:00)
[2017-04-04] MEDS ORDERED: metroNIDAZOLE 500 MG/NS (PMX) 100 ML IVPB ONE (19:00)
[2017-04-04] MEDS ORDERED: ONDANSETRON 4 MG INJ IV PRN ×2 (19:30→20:00)
[2017-04-04] MEDS ORDERED: ACETAMINOPHEN 325 MG TAB PO PRN ×2 (19:30→20:00)
[2017-04-04] MEDS ORDERED: DOCUSATE SODIUM 100 MG CAP PO PRN (20:00)
[2017-04-04] MEDS ORDERED: ALBUTEROL/IPRATROPIUM (NEB) 3 ML AMP HHN PRN (20:00)
[2017-04-04] MEDS ORDERED: ZOLPIDEM 5 MG TAB PO PRN (20:00)
[2017-04-04] MEDS ORDERED: MAGNESIUM HYDROXIDE 30ML CUP PO PRN (20:00)
[2017-04-04] MEDS ORDERED: hydrALAzine 20 MG INJ IV PRN (20:00)
[2017-04-04] MEDS ORDERED: NACL 0.9% 3 ML SYG IV SCH (20:00)
[2017-04-04] MEDS ORDERED: BISACODYL (EC) 5 MG TAB PO PRN (20:00)
[2017-04-04] MEDS ORDERED: HYDROCODONE/APAP (5/325) TAB PO PRN (20:00)
[2017-04-04] MEDS ORDERED: LORAZEPAM 2 MG INJ IV PRN (20:00)
--- NOTE | 2017-04-04 20:10 | ERA ---
ER Documentation Chief Complaint Date/Time DATE: 04/04/17 TIME: 20:08 Chief Complaint SOB SINCE THIS MORNING HPI 66-year-old male comes in for increasing abdominal pain for the last 2 days as well as some shortness of breath again today. States that when he has abdominal problems he gets short of breath. He denies any chest pain. His pain is worse in the left lower quadrant described as a sharp pain and is a bandlike sensation that does go across to the right side as well. He has a history of diverticulosis a couple of months ago in which they were considering surgery. Denies fevers and chills. Took [place] prior to coming to the emergency room because his pain was so severe. ROS All systems reviewed and are negative except as per history of present illness. Medications Home Meds Reported Medications Aspirin* (Aspirin* EC) 81 Mg Tablet.dr, 81 MG PO DAILY, TAB 04/04/17 Hydrocodone/Acetaminophen ([place] 5-325 Tablet) 1 Each Tablet, 1 EACH PO Q6H, TAB 04/04/17 Dicyclomine Hcl* (Bentyl*) 10 Mg Capsule, 10 MG PO Q6H, CAP 04/04/17 Zolpidem Tartrate* (Zolpidem Tartrate*) 10 Mg Tablet, 10 MG PO QHS Y for INSOMNIA, #30 TAB 04/04/17 Tamsulosin Hcl* (Tamsulosin Hcl*) 0.4 Mg Cap.er.24h, 0.4 MG PO DAILY, CAP 04/04/17 Omeprazole* (Omeprazole*) 20 Mg Capsule.dr, 20 MG PO BID, #60 CAP 04/04/17 Dutasteride* (Avodart*) 0.5 Mg Capsule, 0.5 MG PO DAILY, CAP 04/04/17 Discontinued Reported Medications Ciprofloxacin Hcl* (Ciprofloxacin Hcl*) 500 Mg Tablet, 500 MG PO BID, #14 TAB 04/04/17 Metronidazole* (Metronidazole*) 500 Mg Tablet, 500 MG PO TID Y for PRN, TAB 04/04/17 Omeprazole* (Omeprazole*) 20 Mg Capsule.dr, 20 MG PO DAILY, #30 CAP 11/30/16 Dutasteride* (Avodart*) 0.5 Mg Capsule, 0.5 MG PO DAILY, CAP 11/30/16 Tamsulosin Hcl* (Flomax*) 0.4 Mg Cap.er.24h, 0.4 MG PO DAILY, CAP 11/30/16 Discontinued Scripts Hydrocodone/Acetaminophen ([place] 5-325 Tablet) 1 Each Tablet, 1 EACH PO Q6, #30 TAB Prov:OMAR JANE MD 12/10/16 Zolpidem Tartrate (Ambien Nirmal) 5 Mg Tablet, 10 MG PO HS Y for INSOMNIA for 30 Days, TAB Prov:OMAR JANE MD 12/10/16 Metronidazole* (Flagyl*) 500 Mg Tablet, 500 MG PO Q8 for 7 Days, TAB Prov:OMAR JANE MD 12/10/16 Metoprolol Tartrate* (Lopressor*) 50 Mg Tab, 100 MG PO BID for 30 Days, TAB Prov:OMAR JANE MD 12/10/16 Losartan Potassium* (Cozaar*) 50 Mg Tablet, 50 MG PO DAILY for 30 Days, TAB Prov:OMAR JANE MD 12/10/16 Lorazepam* (Lorazepam*) 1 Mg Tablet, 1 MG PO Q8H Y for ANXIETY, #30 TAB Prov:OMAR JANE MD 12/10/16 Ciprofloxacin Hcl* (Ciprofloxacin Hcl*) 500 Mg Tablet, 500 MG PO BID@06,18 for 7 Days, TAB Prov:OMAR JANE MD 12/10/16 Amlodipine Besylate* (Amlodipine Besylate*) 5 Mg Tablet, 5 MG PO BID for 30 Days , TAB Prov:OMAR JANE MD 12/10/16 Allergies Allergies: Coded Allergies: No Known Allergy (Unverified , 04/04/17) PMhx/Soc Anesthesia Reaction: No Hx Neurological Disorder: No Hx Respiratory Disorders: No Hx Cardiac Disorders: No Hx Psychiatric Problems: No Hx Miscellaneous Medical Probl: Yes (diverticulitis) Hx Alcohol Use: No Hx Substance Use: No Hx Tobacco Use: No Smoking Status: Current some day smoker Physical Exam Vitals Vital Signs Date Time Temp Pulse Resp B/P Pulse Ox O2 Delivery O2 Flow Rate FiO2 04/04/17 20:12 98.6 75 20 167/90 99 Room Air 04/04/17 18:16 77 13 159/87 92 Room Air 04/04/17 15:45 89 21 168/106 96 Room Air 04/04/17 11:13 98.6 98 18 211/109 99 Physical Exam Const: [] Mild distress, uncomfortable Head: Atraumatic Eyes: Normal Conjunctiva ENT: Normal External Ears, Nose and Mouth. Neck: Full range of motion..~ No meningismus. Resp: Clear to auscultation bilaterally Cardio: Regular rate and rhythm, no murmurs Abd: Soft, moderate left lower quadrant abdominal tenderness with mild voluntary guarding, no rebound, non distended. Normal bowel sounds Skin: No petechiae or rashes Back: No midline or flank tenderness Ext: No cyanosis, or edema Neur: Awake and alert and oriented 3, no focal deficit Psych: Normal Mood and Affect Result Diagram: 04/04/17 1600 04/04/17 1600 Results 24 hrs Laboratory Tests Test 04/04/17 16:00 White Blood Count 11.510^3/ul Red Blood Count 6.4810^6/ul Hemoglobin 14.0g/dl Hematocrit 46.2% Mean Corpuscular Volume 71.3fl Mean Corpuscular Hemoglobin 21.6pg Mean Corpuscular Hemoglobin Concent 30.3g/dl Red Cell Distribution Width 17.7% Platelet Count 11297^3/UL Mean Platelet Volume 10.0fl Neutrophils % 76.6% Lymphocytes % 14.5% Monocytes % 7.5% Eosinophils % 0.8% Basophils % 0.3% Nucleated Red Blood Cells % 0.0/100WBC Neutrophils # 8.810^3/ul Lymphocytes # 1.710^3/ul Monocytes # 0.910^3/ul Eosinophils # 0.110^3/ul Basophils # 0.010^3/ul Nucleated Red Blood Cells # 0.010^3/ul Prothrombin Time 13.9Sec Prothrombin Time Ratio 1.1 INR International Normalized Ratio 1.07 Activated Partial Thromboplast Time 30.5Sec Sodium Level 139mmol/L Potassium Level 4.2mmol/L Chloride Level 106mmol/L Carbon Dioxide Level 23mmol/L Anion Gap 14 Blood Urea Nitrogen 16mg/dl Creatinine 0.81mg/dl Glucose Level 105mg/dl Calcium Level 9.7mg/dl Total Bilirubin 0.1mg/dl Direct Bilirubin 0.00mg/dl Indirect Bilirubin 0.1mg/dl Aspartate Amino Transf (AST/SGOT) 33IU/L Alanine Aminotransferase (ALT/SGPT) 39IU/L Alkaline Phosphatase 103IU/L Creatine Kinase 53IU/L Creatine Kinase Index 1.4 Creatinine Kinase MB (Mass) 0.72ng/ml Troponin I < 0.012ng/ml B-Type Natriuretic Peptide 232PG/ML Total Protein 8.1g/dl Albumin 4.3g/dl Lipase 11U/L Current Medications Medications (Trade) Dose Ordered Sig/Himanshu Route PRN Reason Start Time Stop Time Status Last Admin Dose Admin Labetalol HCl (Labetalol) 20 mg ONCE ONCE IV 04/04/17 15:30 04/04/17 15:31 DC 04/04/17 17:10 Morphine Sulfate 2 mg 2 mg ONCE ONCE IV 04/04/17 17:00 04/04/17 17:01 DC 04/04/17 16:54 Ceftriaxone Sodium 50 ml @ 100 mls/hr ONCE STAT IVPB 04/04/17 18:54 04/04/17 19:23 DC 04/04/17 19:20 Metronidazole 100 ml @ 100 mls/hr ONCE ONCE IVPB 04/04/17 19:00 04/04/17 19:59 DC 04/04/17 20:02 Sodium Chloride 1,000 ml @ 1,000 mls/hr Q1H ONCE IV 04/04/17 19:00 04/04/17 19:59 DC 04/04/17 19:22 Sodium Chloride (NS) 1,000 ml @ 1,000 mls/hr Q1H ONCE IV 04/04/17 19:00 04/04/17 19:59 DC 04/04/17 20:03 Ondansetron HCl (Zofran Inj) 4 mg BRIDGE ORDER PRN IV NAUSEA AND/OR VOMITING 04/04/17 19:30 04/04/17 20:02 DC Acetaminophen 650 mg 650 mg ER BRIDGE PRN PO MILD PAIN/FEVER 04/04/17 19:30 04/04/17 20:02 DC Sodium Chloride (NS) 1,000 ml @ 90 mls/hr Q11H7M IV 04/04/17 19:34 IV Flush (NS 3 ml) 3 ml PER PROTOCOL IV 04/04/17 20:00 Ondansetron HCl (Zofran Inj) 4 mg Q6H PRN IV NAUSEA AND/OR VOMITING 04/04/17 20:00 Acetaminophen (Tylenol Tab) 650 mg Q6H PRN PO PAIN LEVEL 1-3 OR FEVER 04/04/17 20:00 Acetaminophen/ Hydrocodone Bitart ([place] (5/325)) 1 tab Q6H PRN PO MODERATE PAIN LEVEL 4-6 04/04/17 20:00 Hydromorphone HCl (Dilaudid) 0.5 mg Q4H PRN IV SEVERE PAIN LEVEL 7-10 04/04/17 20:00 Docusate Sodium (Colace) 100 mg Q12H PRN PO CONSTIPATION 04/04/17 20:00 Magnesium Hydroxide (Milk Of Mag) 30 ml DAILY PRN PO CONSTIPATION 04/04/17 20:00 Bisacodyl (Dulcolax) 5 mg DAILY PRN PO CONSTIPATION 04/04/17 20:00 Zolpidem Tartrate (Ambien) 5 mg QHS PRN PO SLEEP 04/04/17 20:00 Pantoprazole (Protonix Iv) 40 mg DAILY@06 IV 04/05/17 06:00 Enoxaparin Sodium 40 mg 40 mg DAILY SC 04/05/17 09:00 Piperacillin Sod/ Tazobactam Sod (Zosyn 3.375gm/ 100 ml (Pmx)) 100 ml @ 200 mls/hr Q6 IVPB 04/04/17 20:00 Aspirin (Halfprin) 81 mg DAILY PO 04/05/17 09:00 Dutasteride (Avodart) 0.5 mg DAILY PO 04/05/17 09:00 Tamsulosin HCl (Flomax) 0.4 mg DAILY PO 04/05/17 09:00 Metoprolol Tartrate (Lopressor) 50 mg BID PO 04/04/17 21:00 Hydralazine HCl (Apresoline) 5 mg Q4 PRN IV hypertension 04/04/17 20:00 Lorazepam (Ativan) 0.5 mg Q4 PRN IV anxiety 04/04/17 20:00 Albuterol/ Ipratropium (Duoneb) 3 ml Q4H RESP THERAPY PRN HHN sob 04/04/17 20:00 Procedures/MDM Acute diverticulitis in elderly male. This is actually recurrence of recent diverticulitis and the patient should be admitted for antibiotic therapy and proper consultations. He does show microperforation. I spoke with Dr. Zaragoza, who will talk with Dr. Posey who is [facility] consultant last time and decide which one of them will come and see the patient. He has no signs of sepsis currently. Cardiac workup performed secondary to shortness of breath and the patient has no signs of ischemia. I did obtain blood cultures and give the patient both Rocephin and Flagyl for treatment of diverticulitis. I spoke with Dr. Jane who be admitting the patient to medical surgical floor CT abdomen pelvis interpretation acute diverticulitis, no perforation, no obstruction, no free air, no fractures. EKG interpretation: Normal sinus rhythm, right axis deviation, bundle branch block, no ST or T-wave changes concerning for acute ischemia radiation monitor interpretation: Normal sinus rhythm without arrhythmia Chest x-ray interpretation: I see no acute process, no vitamins tandem, no infiltrate, no pulmonary edema, no fractures Departure Diagnosis: Primary Impression: Acute diverticulitis Additional Impressions: Bowel perforation Dyspnea MARIAM DOBSON DO April 04, 2017 20:10
[2017-04-04 20:12] VITALS: PULSE 75; TEMP 98.6
[2017-04-04 20:43] VITALS: BP 146/78; RESP 20
[2017-04-04] MEDS: SOD CHLORIDE 0.9% 1,000 ML IV SCH (21:09)
[2017-04-04] MEDS: HYDROmorphONE 1 MG/ML SYG IV PRN (21:56)
[2017-04-04] MEDS: METOPROLOL 50 MG TAB PO SCH (21:56)
[2017-04-04] MEDS: PIPER-TAZO 3.375 GM IV (PMX) 100 ML IVPB SCH (22:01)
--- NOTE | 2017-04-04 22:12 | HP ---
DATE OF ADMISSION: 04/04/2017 REASON FOR ADMISSION: Abdominal pain, recurrent diverticulitis, hypertensive urgency, also shortnes s of breath. HISTORY OF PRESENT ILLNESS: The patient is a 66-year-old male very well known to me. He has history of BPH, hypertension, dyslipidemia, diverticulitis. His symptoms dated back from when he was diagnosed with acute diverticulitis. He was treated with Cipro and Flagyl orally. He was supposed to undergo a colonoscopy in November, and he received a colon prep. Unfortunately, aft er the prep, he experienced excruciating pain, and he presented to the ER. At that time, he was fou nd to have acute diverticulitis with 10 x 14 lateral wall fluid collection compatible with a contain ed microperforation. At that time, he was treated conservatively with IV antibiotic with IV Zosyn. He was seen by multiple physicians including Dr. Jimi Posey, the surgical services tech, and Dr. Milton Horton, the GI specialist. Also, because he was complaining of chest pain, he was seen by Dr. Hwang, the infantry officer. At that time he underwent also a nuclear stress test which showed no augustina dence of ischemia. The patient was doing well. He deferred his followup with Dr. Horton, and now f or the past 3 days, he has been experiencing again abdominal pain, more in the left lower quadrant. He started to take Cipro and Flagyl which he had at home, but unfortunately symptoms did not improv e much. Today, pain was more severe as the pain radiated to his chest, causing shortness of breath. He presented today to [facility] upon my recommendations. Initial vital signs s howed a temperature of 98.6, pulse 98, respirations 18, blood pressure was elevated at 211/109 with a saturation of 99%. The patient received IV labetalol, and a CT scan of the abdomen and pelvis was performed which showed the following: Recurrent mid to distal left sigmoid colon diverticulitis wi th surrounding infiltration and a small amount of free extraluminal gas compatible with microperfora tion. There is small amount of pelvic free fluid. No bowel obstruction or ileus. There are bilate ral renal cysts, bilateral nonobstructing renal calcifications, no obstructive uropathy; atheroscler osis; vascular changes and bilateral L5 spondylitic disk defect. Chest x-ray shows no evidence of a ctive cardiopulmonary disease. The patient was given Rocephin and Flagyl, and the patient to be adm itted for further care to the medical/surgical floor. Upon evaluation, the patient denies any chest pain. He had shortness of breath which he described as pressure from the abdomen going to his mid chest, causing shortness of breath. He said that he had that before and he was taking omeprazole wi th resolution of his symptoms. The patient's pain described as quite severe. Otherwise, he denies any chest pain, denies any weakness or numbness. Reports dark urine. Otherwise no other complaints . The patient is admitted for further care. PAST MEDICAL HISTORY: Includes BPH, hypertension, dyslipidemia, nephrolithiasis, nicotine dependenc y. ALLERGIES: NO DRUG ALLERGIES. SOCIAL HISTORY: The patient smokes a few cigarettes a day. Alcohol socially. IV drug abuse: Gerald es. The patient smoked more heavily in the past. SURGICAL HISTORY: Kidney stone resection, likely lithotripsy. FAMILY HISTORY: Mother is alive, unknown medical problems. Father from CVA in 1966. The pinky ent is x2. 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 REVIEW OF SYSTEMS: Per HPI. Previously treated for H. pylori. The patient did not follow up with Dr. Horton per our instructions. He was discharged from his previous hospitalization on 12/10/2016. It was mentioned to him also patient may undergo capsule endoscopy, etc. The patient is admitted for further care. See HPI. PHYSICAL EXAMINATION: VITAL SIGNS: Temperature 98.6, pulse is 77, respirations 13, blood pressure 159/87, saturation 92% to 99% on room air. GENERAL: The patient is in no acute distress. HEENT: Normocephalic, atraumatic. NECK: No JVD. CARDIOVASCULAR: S1, S2. Regular rate. LUNGS: Clear. ABDOMEN: Diffuse tenderness throughout the abdomen, more notably in the left lower quadrant. Sligh t guarding, but abdomen overall appears to be soft. EXTREMITIES: There is no clubbing, cyanosis or edema. NEUROLOGIC: The patient is moving all extremities. Sensation and strength are intact. LABORATORY DATA: White count is 11.5, hemoglobin 14, hematocrit 46, platelet count 273. Neutrophil s 77%, lymphocytes 15%. Chemistry: Sodium is 139, potassium 4.2, chloride 106, bicarbonate ____, B UN is 16, creatinine 0.81, glucose of 105. Lipase is 11. CK is 53. Troponin x2 negative. BNP 232 . AST 33, ALT 39, alkaline phosphatase 103. INR 1.07. CT scan of abdomen and pelvis and chest x-ray as above. EKG shows inferior MN, age undetermined. ASSESSMENT AND PLAN: This is an unfortunate 66-year-old male with history of benign prost atic hypertrophy, dyslipidemia, nicotine dependency who presented with recurrent diverticulitis, abd ominal pain, also hypertensive urgency and shortness of breath. 1. Acute diverticulitis. The patient will be started on IV Zosyn. Diet to be advanced to clear li quid as tolerated. The patient will be placed on IV hydration, pain control and will consult both s urgical specialist and GI specialist. Monitor pain. 2. The patient to be placed on deep vein thrombosis prophylaxis and gastrointestinal prophylaxis. 3. Hypertensive urgency. Resume the patient's blood pressure medications including beta blockers, calcium channel jose and hydralazine p.r.n. 4. Anxiety. The patient to be placed on Ativan. 5. Nicotine dependency with evidence of shortness of breath. Will place the patient on breathing t reatments p.r.n. for shortness of breath. Advised him to stop smoking. 6. Benign prostatic hypertrophy. Continue Avodart and Flomax. 7. Monitor the patient closely ____ medical/surgical floor. Likely again will need IV antibiotic m anagement and outpatient followup for possible colonoscopy in a few months. Again, will continue to monitor the patient's symptoms. DISPOSITION: When pain resolved and patient's diet is advanced. We will follow. Dictated By: OMAR MATUTE/CROW Conf#: [id number] DID#: [id number]
[2017-04-05 03:27] LABS: ADD SCAN DIFF NO
[2017-04-05 03:38] LABS: BASOPHILS % 0.4 % (0.0-2.0); EOSINOPHILS # 0.2 10^3/ul (0.0-0.5); EOSINOPHILS % 2.5 % (0.0-7.0); LYMPHOCYTES # 1.7 10^3/ul (0.8-2.9); MEAN CORPUSCULAR HEMOGLOBIN 22.1 pg (29.0-33.0); MEAN CORPUSCULAR HGB CONC 30.8 g/dl (32.0-37.0); MEAN PLATELET VOLUME 10.2 fl (7.4-10.4); MONOCYTE # 0.7 10^3/ul (0.3-0.9); MONOCYTES % 9.6 % (0.0-11.0); NEUTROPHIL # 4.9 10^3/ul (1.6-7.5); NEUTROPHILS % 65.4 % (39.0-77.0); PLATELET COUNT 241 10^3/UL (140-415); RED BLOOD COUNT 5.42 10^6/ul (4.70-6.10); WHITE BLOOD COUNT 7.5 10^3/ul (4.8-10.8)
[2017-04-05 04:01] LABS: CREATINE KINASE 50 IU/L (23-200)
[2017-04-05 04:04] LABS: ALBUMIN 3.3 g/dl (3.3-4.9); ALBUMIN/GLOBULIN RATIO 1.03; BILIRUBIN,INDIRECT 0.2 mg/dl (0-1.1); BILIRUBIN,TOTAL 0.2 mg/dl (0.2-1.3); CALCIUM 8.7 mg/dl (8.4-10.2); CREATININE 0.78 mg/dl (0.61-1.24); POTASSIUM 4.3 mmol/L (3.5-5.1); TOTAL PROTEIN 6.5 g/dl (6.1-8.1)
[2017-04-05 04:18] LABS: CK-MB 0.76 ng/ml (0.0-2.4); TROPONIN-I < 0.012 ng/ml (0.00-0.12)
[2017-04-05 04:34] LABS: THYROID STIMULATING HORMONE 0.873 MIU/L (0.465-4.680)
[2017-04-05] MEDS ORDERED: PANTOPRAZOLE 40 MG INJ IV SCH (06:00)
[2017-04-05] MEDS: PIPER-TAZO 3.375 GM IV (PMX) 100 ML IVPB SCH ×4 (06:23→18:08)
[2017-04-05] MEDS: HYDROmorphONE 1 MG/ML SYG IV PRN ×2 (06:30→13:24)
[2017-04-05] MEDS: SOD CHLORIDE 0.9% 1,000 ML IV SCH ×2 (06:41→17:48)
[2017-04-05] MEDS: METOPROLOL 50 MG TAB PO SCH ×2 (08:24→20:16)
[2017-04-05] MEDS ORDERED: DUTASTERIDE 0.5 MG CAP PO SCH (09:00)
[2017-04-05] MEDS ORDERED: ENOXAPARIN 40 MG/0.4 ML SYG SC SCH (09:00)
[2017-04-05] MEDS ORDERED: TAMSULOSIN (SR) 0.4 MG CAP PO SCH (09:00)
[2017-04-05] MEDS ORDERED: ASPIRIN (EC) 81 MG TAB PO SCH (09:00)
[2017-04-05 09:01] VITALS: BP 163/91; RESP 16
[2017-04-05] MEDS ORDERED: ZOLPIDEM 5 MG TAB PO PRN (14:00)
[2017-04-05 16:47] LABS: ADD UMIC NO; URINE BILIRUBIN (Dip) NEGATIVE (NEGATIVE); URINE BLOOD (Dip) NEGATIVE (NEGATIVE); URINE COLOR LT. YELLOW (YELLOW); URINE GLUCOSE (Dip) NEGATIVE (NEGATIVE); URINE KETONES (Dip) NEGATIVE (NEGATIVE); URINE LEUKOCYTE ESTERASE (Dip) NEGATIVE (NEGATIVE); URINE NITRITE (Dip) NEGATIVE (NEGATIVE); URINE TOTAL PROTEIN (Dip) NEGATIVE (NEGATIVE); URINE UROBILINOGEN (Dip) 0.2 E.U./dL (0.1-1.0)
--- NOTE | 2017-04-05 19:00 | PN ---
DATE: 04/05/2017 SUBJECTIVE: Patient seen and requested both a surgical and GI consult. Patient still complaining o f pain in the left side of his abdomen, but overall better, tolerating clear liquid diet, but we carisa l not advance it further as the patient still with pain and will follow up with the above specialist s. The patient also complaining of insomnia. Per nurses, the patient refuses IV fluid. PHYSICAL EXAMINATION: Fluids: VITAL SIGNS: Temperature 98.4, pulse 73, respirations 16, blood pressure remains slightly elevated at 163/91, saturation 97%. GENERAL: The patient is in no acute distress. The patient is pale. HEENT: Normocephalic, atraumatic. CARDIOVASCULAR: S1 and S2, regular rate and rhythm. LUNGS: Clear bilaterally. ABDOMEN: Soft, tender to palpation in the lower left abdomen. EXTREMITIES: No clubbing, cyanosis, or edema. LABORATORY DATA: Today shows a normal white count of 7.5, hemoglobin 12, hematocrit 39, platelets 2 41, neutrophils 65%, lymphocytes 22%. ESR 36. Chemistry: Sodium 138, potassium 4.3, chloride 108, bicarbonate 25, BUN is 14, creatinine 0.78, glucose of 95. LFTs are normal. CRP is high at 18.6, albumin 3.3. TSH 0.873. CEA is 1.6. INR is 1.07. MEDICATIONS: 1. Lovenox 40 mg subq every day. 2. Aspirin 81 mg daily. 3. Avodart 0.5 daily. 3. Flomax 0.4 daily. 4. Protonix 40 IV daily. 5. Lopressor 50 b.i.d. 6. Zofran p.r.n. 7. Tylenol p.r.n. 8. [place] p.r.n. 9. Dilaudid p.r.n. 10. Colace p.r.n. 11. Milk of magnesia p.r.n. 12. Dulcolax p.r.n. 13. Zosyn 3.375 IV q. 6h. 14. Hydralazine p.r.n. 15. Ativan p.r.n. 16. DuoNebs p.r.n. 17. Normal saline 90 mL an hour. ASSESSMENT AND PLAN: This is an unfortunate 66-year-old male with BPH, dyslipidemia and n icotine dependency who presents with recurrent diverticulitis, abdominal pain also hypertensive urge ncy and shortness of breath. 1. Acute diverticulitis. The same picture since his last admission back in November. Continue IV Z osyn. Diet to be advanced as tolerated. GI and surgical consultation will be obtained. The patien t refusing IV fluids. White count is now normal. Advance diet further when pain issues are resolve d. 3. Continue deep vein thrombosis prophylaxis and gastrointestinal prophylaxis. 4. Hypertension. Patient is on metoprolol, add amlodipine and titrate medication up. 5. Anxiety and insomnia. Continue Ambien and p.r.n. Ativan. 6. Shortness of breath, resolved. This may have been secondary to anxiety or just abdominal pain p ushing on his diaphragm, overall better. Advised the patient to stop smoking. 7. Benign prostatic hypertrophy on Avodart and Flomax. 8. Case discussed with his at bedside. We will follow. Dictated By: OMAR MATUTE/CROW Conf#: [id number] DID#: [id number]
--- NOTE | 2017-04-05 19:26 | CONS ---
Date/Time of Note Date/Time of Note DATE: 04/05/17 TIME: 19:13 Assessment/Plan Assessment/Plan Chief Complaint/Hosp Course 1. Acute recurrent microperforated sigmoid diverticulitis. CT without drainable collection. -IV antibiotics -IV fluids -Recommend continued antibiotics with conservative tx and then bring back patient for elective laparoscopic sigmoid colectomy in a few months after outpatient colonoscopy. However, since patient did not follow up last time and family eager, it is possible to proceed with surgery as long as higher risk of open procedure and higher risk of colostomy are acceptable by patient and family. 2. Microcytic anemia -Monitor -Will need eventual upper and lower scope prior to surgical intervention 3. Hypertension -Nutrition and medication control 4. BPH -Flomax 5. Dyslipidemia -Nutrition and possible medication control 6. Nephrolithiasis and renal cysts -Encourage adequate fluid consumption -Outpatient renal follow-up 7. Bilateral inguinal hernias, asymptomatic -Eventual surgical repair, as needed 8. Anxiety hx and Panic Attacks -medical management Thank you very much for consulting me in this patient's care, Problems: Consultation Date/Type/Reason Admit Date/Time April 04, 2017 at 19:04 Date of Consultation: April 05, 2017 Type of Consultation: General surgicaal Reason for Consultation 1. Abdominal pain. 2. Diverticulitis with microperforation, recent, recurrent. 3. Anemia. Referring Provider: OMAR JANE MD Hx of Present Illness Mr. Bela Baldwin is a 66-year-old male with multiple comorbidities who is well known to me from 11/2016 for the same issue, microperforated diverticulitis. Patient returns with abdominal pain and associated nausea but no vomiting. He denies f/c/cp/sob. No cough. No sz. No blood per mouth or rectum. No dysuria. Patient was supposed to follow up as outpt for colonoscopy and follow up laparoscopic resection but was not been able to do so. In the ER he is found to have stable vitals with normal temperature. He is found to have leukocytosis and CT diagnosis of recurrent microperforated diverticulitis. Surgical consult is obtained for further evaluation and treatment. 12-point review of system negative unless addressed in HPI. Past Medical History 1. Benign prostatic hypertrophy. 2. Hypertension. 3. Dyslipidemia. 4. Nephrolithiasis. 5. Nicotine dependence. 6. Diverticulosis with acute diverticulitis and microperforation. 7. History of H. pylori. Past Surgical History Cystoscopy and ureteroscopy and stone extraction. Family History Significant Family History: other (Father from CVA at 67. Mother alive.) Social History Smokes half a pack per day for many years. Alcohol, socially. Denies recreational drug use. . 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 Exam/Review of Systems Vital Signs Vitals Vital Signs Date Time Temp Pulse Resp B/P Pulse Ox O2 Delivery O2 Flow Rate FiO2 04/05/17 09:01 98.4 73 16 163/91 97 04/04/17 20:12 Room Air Intake and Output 04/04/17 04/04/17 04/05/17 15:00 23:00 07:00 Intake Total 100 ml 1040 ml Output Total 450 ml Balance 100 ml 590 ml Exam GENERAL: No acute distress, comfortable, pleasant. HEENT: Pupils equal, reactive. No scleral icterus. Mucous membranes are moist. Extraocular muscles are intact. NECK: No crepitus. No JVD. Trachea midline. HEART: S1, S2 present and regular. PULMONARY: Normal respiratory effort. No wheezing. ABDOMEN: Soft, tender in the lower abdomen, left more than right. No rebound or guarding, not rigid. Negative Martinez's. Not distended. EXTREMITIES: No edema. VASCULAR: Capillary refill is less than 2 seconds. NEUROLOGIC: Alert, oriented, moves all 4 extremities grossly. SKIN: No rashes. No jaundice Results Result Diagram: 04/05/17 0320 04/05/17 0320 Results 24 hrs Laboratory Tests Test 04/05/17 03:20 04/05/17 12:00 04/05/17 16:00 White Blood Count 7.5 # Red Blood Count 5.42 Hemoglobin 12.0 L Hematocrit 39.0 L Mean Corpuscular Volume 72.0 L Mean Corpuscular Hemoglobin 22.1 L Mean Corpuscular Hemoglobin Concent 30.8 L Red Cell Distribution Width 16.0 H Platelet Count 241 Mean Platelet Volume 10.2 Neutrophils % 65.4 Lymphocytes % 22.0 Monocytes % 9.6 Eosinophils % 2.5 Basophils % 0.4 Nucleated Red Blood Cells % 0.0 Neutrophils # 4.9 Lymphocytes # 1.7 Monocytes # 0.7 Eosinophils # 0.2 Basophils # 0.0 Nucleated Red Blood Cells # 0.0 Erythrocyte Sedimentation Rate 36 H Sodium Level 138 Potassium Level 4.3 Chloride Level 108 Carbon Dioxide Level 25 Anion Gap 9 # Blood Urea Nitrogen 14 Creatinine 0.78 Glucose Level 95 Calcium Level 8.7 Total Bilirubin 0.2 Direct Bilirubin 0.00 Indirect Bilirubin 0.2 Aspartate Amino Transf (AST/SGOT) 20 Alanine Aminotransferase (ALT/SGPT) 33 Alkaline Phosphatase 70 Creatine Kinase 50 Creatine Kinase Index 1.5 Creatinine Kinase MB (Mass) 0.76 Troponin I < 0.012 C-Reactive Protein 18.6 H Total Protein 6.5 # Albumin 3.3 # Globulin 3.20 Albumin/Globulin Ratio 1.03 Carcinoembryonic Antigen 1.6 Thyroid Stimulating Hormone (TSH) 0.873 Stool Occult Blood NEGATIVE Urine Color LT. YELLOW Urine Clarity CLEAR Urine pH 6.5 Urine Specific [place] 1.020 Urine Ketones NEGATIVE Urine Nitrite NEGATIVE Urine Bilirubin NEGATIVE Urine Urobilinogen 0.2 E.U./dL Urine Leukocyte Esterase NEGATIVE Urine Hemoglobin NEGATIVE Urine Glucose NEGATIVE Urine Total Protein NEGATIVE Medications Medications Current Medications Sodium Chloride (NS) 1,000 ml @ 90 mls/hr Q11H7M IV Last administered on 21:09; Admin Dose 90 MLS/HR; Start 04/04/17 at 19:34 Ondansetron HCl (Zofran Inj) 4 mg Q6H PRN IV NAUSEA AND/OR VOMITING; Start at 20:00 Acetaminophen (Tylenol Tab) 650 mg Q6H PRN PO PAIN LEVEL 1-3 OR FEVER; Start at 20:00 Acetaminophen/ Hydrocodone Bitart ([place] (5/325)) 1 tab Q6H PRN PO MODERATE PAIN LEVEL 4-6; Start 04/04/17 at 20:00 Hydromorphone HCl (Dilaudid) 0.5 mg Q4H PRN IV SEVERE PAIN LEVEL 7-10 Last administered on 04/05/17 13:24; Admin Dose 0.5 MG; Start 04/04/17 at 20:00 Docusate Sodium (Colace) 100 mg Q12H PRN PO CONSTIPATION; Start 04/04/17 at 20: 00 Magnesium Hydroxide (Milk Of Mag) 30 ml DAILY PRN PO CONSTIPATION; Start at 20:00 Bisacodyl (Dulcolax) 5 mg DAILY PRN PO CONSTIPATION; Start 04/04/17 at 20:00 Pantoprazole (Protonix Iv) 40 mg DAILY@06 IV Last administered on 04/05/17 06: 23; Admin Dose 40 MG; Start 04/05/17 at 06:00 Enoxaparin Sodium 40 mg 40 mg DAILY SC Last administered on 04/05/17 08:41; Admin Dose 40 MG; Start 04/05/17 at 09:00 Piperacillin Sod/ Tazobactam Sod (Zosyn 3.375gm/ 100 ml (Pmx)) 100 ml @ 200 mls /hr Q6 IVPB Last administered on 04/05/17 18:08; Admin Dose 200 MLS/HR; Start 04/04/17 at 20:00 Aspirin (Halfprin) 81 mg DAILY PO Last administered on 04/05/17 08:16; Admin Dose 81 MG; Start 04/05/17 at 09:00 Dutasteride (Avodart) 0.5 mg DAILY PO ; Start 04/05/17 at 09:00 Tamsulosin HCl (Flomax) 0.4 mg DAILY PO ; Start 04/05/17 at 09:00 Metoprolol Tartrate (Lopressor) 50 mg BID PO Last administered on 04/05/17 08: 24; Admin Dose 50 MG; Start 04/04/17 at 21:00 Hydralazine HCl (Apresoline) 5 mg Q4 PRN IV hypertension; Start 04/04/17 at 20: 00 Lorazepam (Ativan) 0.5 mg Q4 PRN IV anxiety; Start 04/04/17 at 20:00 Zolpidem Tartrate (Ambien) 10 mg QHS PRN PO SLEEP; Start 04/05/17 at 14:00 Amlodipine Besylate (Norvasc) 5 mg DAILY PO ; Start 04/06/17 at 09:00 BELA SHINE MD April 05, 2017 19:26
[2017-04-05 20:00] VITALS: BP 166/81; RESP 18
--- NOTE | 2017-04-06 00:29 | CONS ---
DATE OF ADMISSION: 04/04/2017 DATE OF CONSULTATION: TYPE OF CONSULTATION: Gastroenterology. REFERRING PHYSICIAN: Dr. Omar Dhaliwal REASON FOR CONSULTATION: Acute diverticulitis. HISTORY OF PRESENT ILLNESS: A 66-year-old gentleman with a history of hypertension, anxiety, had at tack of diverticulitis a few months ago. He was successfully treated and was advised to come to the office for followup and for colonoscopy, but patient never came. However, he developed pain in the left lower quadrant on Tuesday. The pain continued and, since it was unbearable, patient came to the emergency room. In the ER, patient had a CAT scan done, which showed acute diverticulitis witho ut any abscess formation. He was admitted for further management and treatment. The patient is now on Zosyn and liquid diet. PAST MEDICAL HISTORY: BPH, hypertension, dyslipidemia, nephrolithiasis, nicotine dependency. ALLERGIES: NONE. SOCIAL HISTORY: Smokes a few cigarettes a day. Alcohol socially. PAST SURGICAL HISTORY: Kidney stone resection. FAMILY HISTORY: Nothing contributory. Father from a CVA. PHYSICAL EXAMINATION VITALS: Stable. HEENT: Unremarkable. NECK: Supple. No thyromegaly, no lymphadenopathy. CARDIOVASCULAR: No murmur, gallop, or click. LUNGS: Clear. ABDOMEN: Soft. Tenderness in the left lower quadrant. Bowel sounds good. No mass in the upper ab domen. EXTREMITIES: No edema. CENTRAL NERVOUS SYSTEM: Grossly within normal limits. LABORATORY DATA: WBC 11.5, dropped down to 7.5, hematocrit is 39. Microcytic hypochromic anemia. CAT scan shows left-sided sigmoid diverticulitis with surrounding inflammation. IMPRESSION: 1. Acute diverticulitis. 2. Hypertension. 3. Anxiety. 4. Benign prostatic hypertrophy. PLAN: To continue antibiotic. Monitor WBC count closely and will advance the diet slowly. I have discussed with the patient and also with the face to face. The patient is also educated regard ing the colonoscopy and, if the attack is recurrent, then may need elective laparoscopic colectomy. Dictated By: IRWIN COE MD PJ/NTS Conf#: [id number] DID#: [id number] CC: OMAR DHALIWAL MD; IRWIN COE MD;*EndCC*
[2017-04-06] MEDS ORDERED: AMLODIPINE 5 MG TAB PO SCH (09:00)
--- NOTE | 2017-04-07 03:44 | DS ---
DATE OF ADMISSION: 04/04/2017 DATE OF DISCHARGE: 04/05/2017 The patient left against medical advice on 04/05/2017. REASON FOR ADMISSION: Abdominal pain, acute diverticulitis, hypertensive urgency and shortness of b reath. HOSPITAL COURSE: The patient is a very unfortunate 66-year-old male with a history of BPH , hypertension, dyslipidemia, diverticulitis symptoms dated back in 10/2016 when he presented with a cute diverticulitis. He was about to undergo a colonoscopy when he had a prep given to him. Unfort unately, he experienced severe pain and was admitted with acute diverticulitis with microperforation . The patient was treated in the hospital with IV antibiotics and was recommended to follow up with Dr. Horton, the GI specialist. The patient did not really follow up now presents again to [facility]. He presented to [facility] again with increasing abdominal pain for a few days. Blood pressure was in the 200 and the patient underwent a CT scan of the abdom en and pelvis which showed recurrent mid to distal left sigmoid colon diverticulitis with surroundin g infiltration and a small amount of free extraluminal gas compatible with microperforation, small a mount of pelvic free fluid, no bowel obstruction and no ileus. There are bilateral renal cysts, non obstructive renal calcification, no obstructive uropathy, atherosclerotic vascular changes and bilat eral L5 spondylitic defects. Chest x-ray was unremarkable. The patient was admitted for further ca re where I started the patient on IV Zosyn. I consulted multiple physicians including Dr. Jimi vargas and Dr. Breezy Horton, the economic specialist and the GI specialist respectfully, and per Dr. Posey's impression recommend to continue the antibiotics and conservative treatment, and then jasper ng back the patient for elective laparoscopic sigmoid colectomy in a few months after outpatient col onoscopy. However, since the patient did not follow up last time and family's it is possible to proceed with surgery as long as the high risk of open procedure and high risk of colostomy unacce ptable by family and patient. The patient overall improved as his white count went down from 11.5 t o 7.5. I ordered stool for Clostridium difficile and they were pending, but patient was placed in i solation. The patient stated that he wants to go downstairs basically told me he wanted to go to [facility], apparently he was not happy with the hospital policy and he decided to leave against medical ad vice. The patient left against medical advice before was not even able to give him medication or to discuss with him further plan of care. The patient overall improved. FINAL DIAGNOSES: 1. Acute diverticulitis. 2. Hypertensive urgency. 3. Benign prostatic hypertrophy. 4. Noncompliance. 5. Dyslipidemia. 6. Nicotine dependency. 7. History of nephrolithiasis. 8. Anxiety 9. Insomnia. 10. Shortness of breath likely secondary from abdominal pain pushing on his diaphragm and possibly anxiety related to some degree. DIET: To be advanced as tolerated. DISPOSITION: The patient was discharged and hopefully will follow up with us and we can prescribe t hese medications and at least oral antibiotics and follow up with the above specialists. Long-term prognosis is guarded. The patient is noncompliant, unfortunately and he continues to smoke. Dictated By: OMAR MATUTE/CROW Conf#: [id number] DID#: [id number]
== END 2017-04-05 22:00 | disposition left against medical advice (07) | DRG 392 ==
LOC: E/R 11:00 → MS2 19:04
PROVIDERS: ADMIT Internal Medicine; ATTEND Internal Medicine
DX: K57.92 Diverticulitis of intestine, part unspecified, without perforation or abscess without bleeding (principal); I16.0 Hypertensive urgency; N20.0 Calculus of kidney; N28.1 Cyst of kidney, acquired; D50.9 Iron deficiency anemia, unspecified; F17.200 Nicotine dependence, unspecified, uncomplicated; N40.0 Benign prostatic hyperplasia without lower urinary tract symptoms; K40.20 Bilateral inguinal hernia, without obstruction or gangrene, not specified as recurrent; G47.00 Insomnia, unspecified; R13.10 Dysphagia, unspecified; R06.02 Shortness of breath; E78.5 Hyperlipidemia, unspecified; F41.9 Anxiety disorder, unspecified; Z91.14 Patient's other noncompliance with medication regimen
CPT/HCPCS: 36415; 71010; 74176; 80048; 80053; 80076; 81003; 82270; 82378; 82550; 82553; 83690; 83880; 84443; 84484; 85025; 85610; 85651; 85730; 86140; 87040; 87075; 87086; 93005; 96374; 96375; 96376; C9113; J0696; J1170; J1650; J2270; J2543; J7030